=== PATIENT | female | born 1940 | race Caucasian/White ===

== ENCOUNTER 2017-10-24 13:00 | Outpatient (RCR) | payer MEDICARE, OTHER, SELFPAY ==
--- NOTE | 2017-09-30 10:58 | HMH.PTOPEV ---
PT Outpatient Evaluation Rehab PT Outpatient Evaluation Start: 09/30/17 10:47 Freq: Status: Active Protocol: Document 09/30/17 10:47 LEO (Rec: 09/30/17 10:57 LEO [id number]) Electronically Signed By Brennan Nicole, PT 09/30/17 10:47 Outpatient Therapy Subjective History Subjective History Pt reports falling on 08/26/17 while trying to transferred into vehicle when it started to move. Pt reports falling very hard with impact to the back of the head, elbow, face, and heel. Pt reports sustaining concussion and brain bleed in the frontal lobe. Pt reports 'unsteady' gait since injury, but no other falls reported to date. Chief Complaint Decreased Coordination Symptom Type Other Symptoms Relieved By Activity Symptoms Aggravated By Walking Prior Functional Limitations None Current Functional Limitations Standing Recreation Activity Stairs Balance Hip/Knee Eval MMT bilateral Hip Flexion Strength Grade 4 Good Hip Abduction Strength Grade 4- Good- Hip Adduction Strength Grade 4- Good- Hip Extension Strength Grade 4- Good- Knee Extension Strength Grade 4 Good Knee Flexion Strength Grade 4 Good Balance Eval Chief Complaint vertigo No Did you feel dizzy, unsteady or faint? Yes Activity at onset 08/26/17 Gait/Posture Asssessment General Gait Observation Wide Based Gait Shuffling Step Assistive Devices None / NA Level of Transfer Assist Standby Assistance Hip Observation in Gait Swing Circumducted Timed Up and Go Test 1. Is the Timed Up and Go test result > yes or = to 12 seconds? Outpatient Therapy Assessment Impairments Problems/Impairmments Impaired Strength Impaired Gait Pattern Impaired Walking Impaired Standing Impaired Stair Climbing Impaired Stepping on Uneven Surface Impaired TUG Time Subjective C/O Pain Impaired Self Care/Self Management Prognosis Rehab Potential Good Clinical Impression Consistent with Diagnosis
== END 2017-10-24 13:01 | disposition home or self-care (01) ==
LOC: PT 13:00
PROVIDERS: Family Provider Family Medicine; PCP Family Medicine; Visit Provider Family Medicine
DX: R26.89 Other abnormalities of gait and mobility (principal); E53.8 Deficiency of other specified B group vitamins
CPT/HCPCS: 97110; 97112; 97163

== ENCOUNTER → 2018-03-21 12:27 | Outpatient (CLI) | payer MEDICARE, SELFPAY ==
--- NOTE | 2018-03-21 12:32 | XR_ITS ---
XR hip LT 2-3V w/pelvis HISTORY: ITS.REASON: LT HIP PAIN ORDERING PHYSICIAN: Constance Ness MD PATIENT AGE: 77 years COMPARISON: None FINDINGS: There are moderate osteoarthritic changes of the left hip with decrease in joint space superiorly and with osteosclerosis of the acetabular roof with some small subarticular cysts of the acetabulum. No fracture or dislocation. No lytic or blastic change. There is a pessary device present. IMPRESSION: Moderate osteoarthritis of the left hip
== END ==
PROVIDERS: PCP Family Medicine; Visit Provider Family Medicine
DX: M25.552 Pain in left hip (principal)
CPT/HCPCS: 73502

== ENCOUNTER → 2018-07-05 08:57 | Outpatient (CLI) | payer MEDICARE, SELFPAY ==
--- NOTE | 2018-07-05 09:17 | XR_ITS ---
XR DEXA axial skeleton HISTORY: ITS.REASON: POST MENOPAUSAL ORDERING PHYSICIAN: Constance Ness MD PATIENT AGE: 77 years COMPARISON: none FINDINGS: The BMD measured at the Left Total femoral neck is 0.667 g/cm squared with a T score of -2.7. This is considered Osteoporotic according to the World Health Organization criteria. Fracture risk is High. Treatment is advised. L1 L4 density has a T score of -0.5 IMPRESSION: Osteoporosis with high fracture risk. Treatment suggested. Recommend follow-up exam June 2019
== END ==
PROVIDERS: PCP Family Medicine; Visit Provider Family Medicine
DX: Z78.0 Asymptomatic menopausal state (principal)
CPT/HCPCS: 77080

== ENCOUNTER → 2018-08-24 13:50 | Outpatient (CLI) | payer MEDICARE, SELFPAY ==
[2018-08-24 14:15] VITALS: BP 130/70; PULSE 71; RESP 18; O2SAT 98
== END ==
PROVIDERS: Visit Provider Family Medicine
DX: E83.51 Hypocalcemia (principal); Z92.89 Personal history of other medical treatment; M81.0 Age-related osteoporosis without current pathological fracture
CPT/HCPCS: 96372; J0897

== ENCOUNTER 2018-08-31 11:00 | Outpatient (RCR) | payer MEDICARE, SELFPAY | END 2018-08-31 11:05 | disposition home or self-care (01) | LOC: PT 11:00 | PROVIDERS: Visit Provider Orthopaedic Surgery | DX: M25.552 Pain in left hip (principal); Z96.642 Presence of left artificial hip joint | CPT/HCPCS: 97010; 97014; 97110; 97116; 97163; G0283 ==

== ENCOUNTER 2019-02-28 10:09 | Outpatient (CLI) | payer MEDICARE, SELFPAY ==
[2019-02-28 10:30] VITALS: BP 154/71; PULSE 61; RESP 18; TEMP 36.3; O2SAT 98
== END 2019-02-28 10:45 | disposition home or self-care (01) ==
LOC: INF 10:09
PROVIDERS: Visit Provider Family Medicine
DX: M81.0 Age-related osteoporosis without current pathological fracture (principal); E83.51 Hypocalcemia
CPT/HCPCS: 96372; J0897

== ENCOUNTER 2019-09-07 13:23 | Observation (INO) | payer MEDICARE, SELFPAY ==
--- NOTE | 2019-09-07 13:22 | ECG_ITS ---
APPROVED REPORT Exam: Resting ECG HR:61 bpm ECG Measurements Heart Rate 61 AXES DC 164 P 39 QRSd 86 QRS 48 QT 412 T 32 QTc 414 <Conclusion> Normal sinus rhythm Incomplete RBBB Otherwise a normal ECG Electronically signed by : Caden Mccormack, 09/09/2019 17:27:15
[2019-09-07 13:23] VITALS: BP 147/87; PULSE 65; RESP 18; O2SAT 98; BMI 27.3
--- NOTE | 2019-09-07 13:30 | XR_ITS ---
PROCEDURE: XR CHEST PORTABLE CLINICAL HISTORY: chest pain COMPARISON: CXR1 CHEST-PORTABLE from 12/29/2012 RIBUL3 [id number] VIEWS from 11/26/2015 ABDPELW/O CT ABD PELVIS W/O CONTRAST from 02/26/2016 CXR1VP XR chest portable from 08/26/2017 FINDINGS: Cardiomegaly without failure. There is increased density in the right lung base. Some of which may be due to pericardial fat pad however this is more prominent compared to most previous exams. Superimposed pneumonia is considered. The remaining lungs are clear. No acute bony findings. IMPRESSION: Cardiomegaly with right basilar infiltrate Dictated by: Hao Merritt MD 09/07/2019 14:52 Electronically signed by Hao Merritt MD in [place] 09/07/2019 14:52
[2019-09-07 13:38] LABS: Chloride 103 mmol/L (98-107); Potassium 4.1 mmoL/L (3.5-5.1); Sodium 137 mmol/L (136-145)
[2019-09-07 13:41] LABS: Blood Urea Nitrogen 13 mg/dl (7-17); Creatinine Clearance Estimated 46 mL/min (50-200); Estimated Glomerular Filt Rate 69 ml/min (>60); GFR (African American) 84 ML/MIN (>60)
[2019-09-07 13:42] LABS: Anion Gap 12.1 mEq/L (5-15); Calcium 10.4 mg/dl (8.4-10.2); Carbon Dioxide 26 mmol/L (22.0-30.0); Glucose 103 mg/dl (74-100)
[2019-09-07 13:51] LABS: Basophils # 0.1 K/mm3 (0-0.2); Basophils % 1.2 % (0.1-2.0); Eosinophils # 0.1 K/mm3 (0.0-0.4); Eosinophils % 1.5 % (0.1-12.0); Hematocrit 41.7 % (37.0-47.0); Hemoglobin 13.6 g/dL (12.2-16.2); Lymphocytes # 2.3 K/mm3 (0.7-4.5); Lymphocytes % 36.3 % (10-50); Mean Corpuscular HGB Conc 32.6 g/dL (31.8-35.4); Mean Corpuscular Volume 82.9 fl (81-99); Mean Platelet Volume 7.9 fl (7.4-10.4); Monocytes # 0.4 K/mm3 (0.1-1.0); Monocytes % 6.8 % (1.7-9.3); Neutrophils # 3.5 K/mm3 (1.8-7.8); Neutrophils % 54.3 % (37.0-80.0); Platelet Count 290 K/mm3 (142-424); Red Blood Count 5.03 M/mm3 (4.20-5.40); Red Cell Distribution Width 14.5 % (11.5-17.5); White Blood Count 6.5 K/mm3 (4.8-10.8)
[2019-09-07 13:54] LABS: Troponin I < 0.01 ng/ml (0.00-0.034)
--- NOTE | 2019-09-07 14:07 | HMH.EDCP ---
ED Disposition Clinical Impression: Chest pain, Stable angina, Hypertension, Coronary artery disease, Hyperlipidemia Disposition: Admitted as Observation Condition on Discharge: Good - Critical Care Critical Care Time: No Attestation: On 09/07/19, the high probability of a clinically significant, sudden or life threatening deterioration of the following system(s) required my full and direct attention, intervention and personal management. The time I documented below is in addition to time spent performing reported procedures but includes the following listed in this critical care notation. Medical Decision Making - Medical Records Medical records reviewed: Yes: I reviewed the patient's medical records. - Be Inquiry Pt receiving controlled substance: No Vital Signs: 09/07/19 13:23 Pulse Rate [Radial] 65 Respiratory Rate 18 Blood Pressure [Right Arm] 147/87 H Blood Pressure Mean [Right Arm] 107 Blood Pressure Source [Right Arm] Automatic Cuff Blood Pressure Position [Right Arm] Supine 02 Sat by Pulse Oximetry 98 Oxygen Delivery Method Room Air - Lab Data Lab results reviewed: Yes: I reviewed the patient's lab results. Lab Results 09/07/19 13:27: WBC 6.5, RBC 5.03, Hgb 13.6, Hct 41.7, MCV 82.9, MCH 27.0, MCHC 32.6, RDW 14.5, Plt Count 290, MPV 7.9, Neut % (Auto) 54.3, Lymph % (Auto) 36.3, [place] % (Auto) 6.8, Eos % (Auto) 1.5, Baso % (Auto) 1.2, Neut # (Auto) 3.5, Lymph # (Auto) 2.3, [place] # (Auto) 0.4, Eos # (Auto) 0.1, Baso # (Auto) 0.1 09/07/19 13:27: Sodium 137, Potassium 4.1, Chloride 103, Carbon Dioxide 26, Anion Gap 12.1, BUN 13, Creatinine 0.80, Estimated Creat Clear 46, Estimated GFR 69, Est GFR ( Amer) 84, Glucose 103 H, Calcium 10.4 H, Troponin I < 0.01 Result diagrams: 09/07/19 13:27 09/07/19 13:27 Orders (Tests/Meds): ED MEDICATIONS Generic Name Dose Route Start Last Admin Trade Name Freq PRN Reason Stop Dose Admin Sodium Chloride 1,000 mls @ 999 mls/hr 09/07/19 13:45 09/07/19 14:01 Sod Chlor 0.9% 1000ml Bag IV 09/07/19 14:45 999 mls/hr .Q1H1M NICO Administration Discontinued Medications Generic Name Dose Route Start Last Admin Trade Name Angela PRN Reason Stop Dose Admin Aspirin 324 mg 09/07/19 13:33 09/07/19 14:01 Aspirin 81mg Chewable Tablet PO 09/07/19 13:34 324 mg ONCE ONE Administration Nitroglycerin 1 gm 09/07/19 13:43 09/07/19 14:01 Nitroglycerin 1 Inch Oint Udp TD 09/07/19 13:44 1 gm ONCE ONE Administration ORDERS Category Date Time Status Chest XR -- portable [XR chest portable] Stat Exams 09/07/19 13:30 Taken Troponin I Q3H Lab 09/07/19 16:45 Ordered Troponin I Q3H Lab 09/07/19 19:45 Ordered - Radiology Data #1 Image(s): Chest Image Reviewed: Yes I reviewed the patient's radiology image w/the ED provider Preliminary Findings: Normal/NAD - ECG Data Tracing #1 I reviewed this ECG and interpreted as documented below: Normal Sinus Rhythm: Yes - HERMANN Score for Non-Stemi Age of Patient: 70-79 years old Heart Rate: 50-69 bpm Systolic Blood Pressure: 140-159 mmHg Serum Creatinine: <0.40 mg/dl CHF [place] Class: I-No CHF Other Risk Factors: None Non-Stemi Risk Score: 103 Risk Stratification: 1-108 = Low Risk Medical Decision Narrative: I did coordinate care with this patient I did speak to cardiology and they came over to evaluate the patient I also spoke to the patient's primary care provider Dr. Marcum and he agreed to admit her for rule out. Chest Pain HPI - General Chief Complaint: Chest Pain Stated Complaint: CHEST PAIN Time Seen by Provider: 09/07/19 14:20 Mode of Arrival: Wheelchair Limitations: No Limitations Description of Symptoms (Recalled from ER Triage Doc. by RN): Complaint of mid chest pain that started all of the sudden approx 20-30 minutes ago. - History of Present Illness HPI narrative: 78-year-old female presents the ED with acute onset of substernal chest pain. She stat
--- NOTE | 2019-09-07 14:27 | HMH.CNCARD ---
History of Present Illness Consult date: 09/07/19 Requesting physician: Bladimir Marcum Consult reason: chest pain Chief complaint: chest pain Additional Medical History:: 1. Hypertension 2. Hyperlipidemia 3. Coronary artery disease A. History of coronary artery stenting approximately 5 years ago may be more, presumed [place], Dr. Michael (?) 4. History of reflux esophagitis, on PPI therapy chronically History of present illness: 78-year-old white female with history of hypertension, hyperlipidemia and coronary artery stenting in the past presented to the emergency department today for sudden onset of substernal sharp discomfort without radiation, associated shortness of breath, nausea, vomiting or diaphoresis. Patient's EKG in the ER is sinus rhythm with no acute ST segment changes. She was given a sublingual nitroglycerin with gradual relief of symptoms. She currently has nitroglycerin paste on and is pain-free. Initial troponin is normal. Chest x-ray reportedly unremarkable. Cardiology consulted for evaluation and recommendations. Patient has already been admitted for overnight observation. Discussion was undertaken regarding her prior coronary stenting and surrounding symptoms but patient is unable to provide any details. 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), Cardiac Catheterization, Coronary Stent, Plastic Surgery (bita breast reconstruction), Other Amputation: No Fractures: No - *Social History Educational Level: Completed High School Smoking Status: Never smoker Alcohol Intake: never *Occupational Status:: other Housing: house Household Members: spouse *Travel in the last 8 weeks: None Family Hx:: No significant family history Meds Home Medications Medication Instructions Recorded Confirmed Type Aspirin [Aspir 81] 81 mg PO DAILY 08/27/17 02/28/19 History Atorvastatin Calcium [Atorvastatin 40 mg PO PM 08/27/17 02/28/19 History 40mg Tab] Dexlansoprazole [Dexilant] 60 mg PO DAILY 08/27/17 02/28/19 History Losartan Potassium 25 mg PO DAILY 08/27/17 02/28/19 History bisoproloL fumarate [Zebeta 5mg 5 mg PO DAILY 08/27/17 02/28/19 History tablet] Allergies Allergy/AdvReac Type Severity Reaction Status Date / Time oxycodone [OXYCODONE] Allergy Unknown I-RASH Verified 08/27/17 16:41 Review of Systems - Review of Systems Review of systems:: pertinent systems reviewed and negative unless documented below - *Cardiovascular Reports chest pain, Denies shortness of breath - *Respiratory Denies cough, Denies shortness of breath - *Gastrointestinal Denies loose stools, Denies nausea, Denies vomiting - *Genitourinary Denies blood in urine - *Musculoskeletal Denies joint pain, Denies back pain - *Neurologic Denies dizziness, Denies fainting, Denies tingling Exam Vital signs and Labs for Last 24 Hours: Pulse Resp BP Pulse Ox 65 18 147/87 H 98 09/07/19 13:23 09/07/19 13:23 09/07/19 13:23 09/07/19 13:23 Laboratory Results - last 24 hr 09/07/19 13:27: WBC 6.5, RBC 5.03, Hgb 13.6, Hct 41.7, MCV 82.9, MCH 27.0, MCHC 32.6, RDW 14.5, Plt Count 290, MPV 7.9, Neut % (Auto) 54.3, Lymph % (Auto) 36.3, [place] % (Auto) 6.8, Eos % (Auto) 1.5, Baso % (Auto) 1.2, Neut # (Auto) 3.5, Lymph # (Auto) 2.3, [place] # (Auto) 0.4, Eos # (Auto) 0.1, Baso # (Auto) 0.1 09/07/19 13:27: Sodium 137, Potassium 4.1, Chloride 103, Carbon Dioxide 26, Anion Gap 12.1, BUN 13, Creatinine 0.80, Estimated Creat Clear 46, Estimated GFR 69, Est GFR ( Amer) 84, Glucose 103 H, Calcium 10.4 H, Troponin I <
[2019-09-07 14:47] VITALS: BMI 34.1
--- NOTE | 2019-09-07 15:08 | CA_ITS ---
APPROVED REPORT EXAM: Comprehensive 2D, Doppler, and color-flow Echocardiogram Courtesy Car Driver: Shameka Burrell RT(R) Ht: 5 ft 2 in Wt: 187lbs BSA: 1.86 BP: 147/87 mmHg Indications: CP, HTN, hyperlipidemia, stents, CAD, hx of RI, bilateral mastectomies with reconstructive surgery M-Mode Dimensions RVDd 2.80 cm (0.9-2.6) LVDd 4.09 cm (3.5-5.7) LVDs 2.65 cm (3.5-5.7) IVSd 1.04 cm (0.6-1.1) PWd 0.93 cm (0.6-1.1) EF (Teich) 65.00% FS 35.20% EDV (Teich) 73.80 mL ESV (Teich) 25.80 mL LV Diastology E/A Ratio 0.82 Mitral Valve MV A Velocity 109.00 (40-130 cm/s) Left Ventricle Left atrium is mildly enlarged, left ventricle is normal size, mild concentric left ventricular hypertrophy, visually estimated ejection fraction 50%, there is moderate hypokinesis involving the basal septum and inferior basal wall. Grade 1 diastolic dysfunction seen without tissue Doppler evidence of raise left atrial pressure. Right Ventricle Right atrium right ventricular normal size and contractility. Aortic Valve Aortic valve is thickened and calcified, leaflet continue to display good mobility, there is no aortic stenosis, there is mild aortic insufficiency. Mitral Valve Mitral valve is grossly normal, there is mild mitral regurgitation. Tricuspid Valve Tricuspid valve is grossly normal, there is mild tricuspid regurgitation, tricuspid regurgitation jet velocity is inadequate for calculation of the right ventricular systolic pressure. Pulmonic Valve Pulmonic valve is poorly visualized. Great Vessels Aortic root is normal size. Pericardium No significant pericardial effusion noted. Conclusion 1. Mildly enlarged left atrium, normal left ventricular size, mild concentric left ventricular hypertrophy, visually estimated ejection fraction 50% with segmental wall motion abnormality described above, grade 1 diastolic dysfunction seen without tissue Doppler evidence of raise left atrial pressure. 2. Thickened and calcified aortic valve without aortic stenosis, there is mild aortic insufficiency. 3. Mild mitral and tricuspid regurgitation. 4. No significant pericardial effusion noted. Electronically signed by : Govind Gilman, 09/09/2019 19:53:44
[2019-09-07 15:14] VITALS: BP 140/85; PULSE 85; RESP 20; TEMP 36.8; O2SAT 98
[2019-09-07 15:46] VITALS: BP 145/79; PULSE 62; RESP 16; TEMP 36.9; O2SAT 96
--- NOTE | 2019-09-07 16:44 | HMH.HP ---
*Admission Date: 09/07/19 *Chief complaint: Chest pain *History of present illness: 8-year-old white female with history of hypertension, hyperlipidemia and coronary artery stenting of the mid LAD in 2012 after non-STEMI presented to the emergency department today for sudden onset of substernal sharp discomfort without radiation, associated shortness of breath, nausea, vomiting or diaphoresis. Patient's EKG in the ER is sinus rhythm with no acute ST segment changes. She was given a sublingual nitroglycerin with gradual relief of symptoms. She currently has nitroglycerin paste on and is pain-free. Initial troponin is normal. Chest x-ray reportedly unremarkable. Cardiology consulted for evaluation and recommendations. Patient has already been admitted for overnight observation. [facility] History I have reviewed the patient's past medical history: Yes Medical History: Reports:: Coronary Artery Disease, Hyperlipidemia, Hypertension, Myocardial Infarction (2012 with subsequent stenting of mid LAD) Denies:: Cancer, Diabetes Mellitus Type 1, Diabetes Mellitus Type 2, MRSA *Have you ever received a pneumonia vaccine?: Yes *Have you received a flu vaccine this season?: Yes Other Medical History: Reports: Cataracts Laterality Cases: Bilateral: Mastectomy Other Surgeries: Yes: Cancer Surgery (bita mast w/abd flap reconstruction), Cardiac Catheterization, Coronary Stent, Plastic Surgery (bita breast reconstruction), Other Amputation: No Fractures: No - *Social History Educational Level: Completed High School Smoking Status: Never smoker Alcohol Intake: never *Occupational Status:: other Housing: house Household Members: spouse *Travel in the last 8 weeks: None Family Hx:: No significant family history Review of Systems - Review of Systems Review of systems:: pertinent systems reviewed and negative unless documented below - Constitutional Denies body ache(s), Denies chills, Denies fever(s), Denies lack of energy, Denies malaise - ENT Denies abnormal hearing - *Cardiovascular Denies chest pain, Denies chest pain at rest, Denies chest pain with activity - *Respiratory Denies change in phlegm color, Denies chest congestion, Denies cough, Denies shortness of breath, Denies shortness of breath with activity, Denies coughing up blood - *Gastrointestinal Denies belching, Denies bloating, Denies change in bowel habits, Denies change in stools - *Musculoskeletal Denies abnormal walking - *Neurologic Denies dizziness, Denies fainting, Denies tingling Meds Home Medications Medication Instructions Recorded Confirmed Type Aspirin [Aspir 81] 81 mg PO DAILY 08/27/17 02/28/19 History Atorvastatin Calcium [Atorvastatin 40 mg PO PM 08/27/17 02/28/19 History 40mg Tab] Dexlansoprazole [Dexilant] 60 mg PO DAILY 08/27/17 02/28/19 History Losartan Potassium 25 mg PO DAILY 08/27/17 02/28/19 History bisoproloL fumarate [Zebeta 5mg 5 mg PO DAILY 08/27/17 02/28/19 History tablet] Allergies Allergy/AdvReac Type Severity Reaction Status Date / Time oxycodone [OXYCODONE] Allergy Unknown I-RASH Verified 08/27/17 16:41 Exam Vital signs and Labs for Last 24 Hours: Temp Pulse Resp BP Pulse Ox 98.4 F 62 16 145/79 H 96 09/07/19 15:46 09/07/19 15:46 09/07/19 15:46 09/07/19 15:46 09/07/19 15:46 Laboratory Results - last 24 hr 09/07/19 13:27: WBC 6.5, RBC 5.03, Hgb 13.6, Hct 41.7, MCV 82.9, MCH 27.0, MCHC 32.6, RDW 14.5, Plt Count 290, MPV 7.9, Neut % (Auto) 54.3, Lymph % (Auto) 36.3, [place] % (Auto) 6.8, Eos % (Auto) 1.5, Baso % (Auto) 1.2, Neut # (Auto) 3.5, Lymph # (Auto) 2.3, [place] # (Auto) 0.4, Eos # (Auto) 0.1, Baso # (Auto) 0.1 09/07/19 13:27: Sodium 137, Potassium 4.1, Chloride 103, Carbon Dioxide 26, Anion Gap 12.1, BUN 13, Creatinine 0.80, Estimated Creat Clear 46, Estimated GFR 69, Est GFR ( Amer) 84, Glucose 103 H, Calcium 10.4 H, Troponin I < 0.01 I & O for Last 24 hours: Intake & Output 09/05/19 09/06/19
[2019-09-07 17:17] LABS: Troponin I < 0.01 ng/ml (0.00-0.034)
--- NOTE | 2019-09-07 19:51 | PC.NURSE ---
PATIENT ARRIVED ON FLOOR VIA WHEELCHAIR. SPOUSE PERMITTED ON FLOOR TO HELP WITH ADMINISTRATION DUE TO PATIENT TBI. PATIENT A&O X3. NO OTHER CONCERNS AT THIS TIME.
[2019-09-07 19:53] VITALS: BP 125/76; PULSE 69; RESP 18; TEMP 36.6; O2SAT 94
[2019-09-07 20:00] VITALS: PULSE 70
[2019-09-07 20:20] LABS: Troponin I < 0.01 ng/ml (0.00-0.034)
[2019-09-08] VITALS: BP 135/74; PULSE 60; PULSE 65; RESP 20; TEMP 36.8; O2SAT 97
[2019-09-08 03:56] VITALS: BP 156/87; PULSE 65; RESP 20; TEMP 36.8; O2SAT 94
[2019-09-08 04:00] VITALS: PULSE 70
--- NOTE | 2019-09-08 04:42 | PC.NURSE ---
PT HAS SLEPT. TURNING SELF. VOIDING WITHOUT DIFFICULTY. NO COMPLAINTS OF CP. NSR ON TELEMETRY.
[2019-09-08 05:32] VITALS: BMI 34.1
[2019-09-08 07:18] LABS: Chloride 108 mmol/L (98-107); Potassium 3.9 mmoL/L (3.5-5.1); Sodium 138 mmol/L (136-145)
[2019-09-08 07:20] LABS: Alanine Aminotransferase 12 U/L (12-78); Aspartate Amino Transferase 20 U/L (14-36); Blood Urea Nitrogen 11 mg/dl (7-17); Creatinine Clearance Estimated 61 mL/min (50-200); Estimated Glomerular Filt Rate 81 ml/min (>60); GFR (African American) 98 ML/MIN (>60)
[2019-09-08 07:21] LABS: Albumin Level 3.3 g/dl (3.5-5.0); Albumin/Globulin Ratio 1.4 (1.1-1.8); Alkaline Phosphatase 58 U/L (38-126); Anion Gap 9.9 mEq/L (5-15); Bilirubin,Total 0.5 mg/dl (0.2-1.3); Calcium 9.2 mg/dl (8.4-10.2); Carbon Dioxide 24 mmol/L (22.0-30.0); Globulin 2.4 g/dL (1.3-3.2); Glucose 86 mg/dl (74-100); Total Protein,Serum 5.7 g/dl (6.3-8.2)
[2019-09-08 07:26] LABS: Basophils % 0.5 % (0.1-2.0); Eosinophils # 0.1 K/mm3 (0.0-0.4); Eosinophils % 0.7 % (0.1-12.0); Hematocrit 36.6 % (37.0-47.0); Lymphocytes # 1.5 K/mm3 (0.7-4.5); Lymphocytes % 22.6 % (10-50); Mean Corpuscular HGB Conc 31.6 g/dL (31.8-35.4); Mean Corpuscular Hemoglobin 26.3 pg (27.0-31.2); Mean Corpuscular Volume 83.3 fl (81-99); Mean Platelet Volume 7.1 fl (7.4-10.4); Monocytes # 0.5 K/mm3 (0.1-1.0); Monocytes % 6.6 % (1.7-9.3); Neutrophils # 4.7 K/mm3 (1.8-7.8); Neutrophils % 69.6 % (37.0-80.0); Platelet Count 236 K/mm3 (142-424); Red Blood Count 4.39 M/mm3 (4.20-5.40); Red Cell Distribution Width 14.6 % (11.5-17.5); White Blood Count 6.7 K/mm3 (4.8-10.8)
--- NOTE | 2019-09-08 07:28 | HMH.DCSUM ---
General - General Admission date:: 09/07/19 Discharge date: 09/08/19 HPI HPI: 8-year-old white female with history of hypertension, hyperlipidemia and coronary artery stenting of the mid LAD in 2012 after non-STEMI presented to the emergency department today for sudden onset of substernal sharp discomfort without radiation, associated shortness of breath, nausea, vomiting or diaphoresis. Patient's EKG in the ER is sinus rhythm with no acute ST segment changes. She was given a sublingual nitroglycerin with gradual relief of symptoms. She currently has nitroglycerin paste on and is pain-free. Initial troponin is normal. Chest x-ray reportedly unremarkable. Cardiology consulted for evaluation and recommendations. Patient has already been admitted for overnight observation. Hospital Course Hospital Course: Patient was admitted and ruled out for ND with serial troponins. She had no recurrence of chest pain. Patient was started on isosorbide mononitrate 30 mg daily. After ruling out for ND patient was discharged home the following morning on September 07. Outpatient stress testing will be arranged. Patient will follow-up in the office after stress testing. Patient was discharged home in stable condition Objective Vital signs: Temp Pulse Resp BP Pulse Ox 98.2 F 70 20 156/87 H 94 L 09/08/19 03:56 09/08/19 04:00 09/08/19 03:56 09/08/19 03:56 09/08/19 03:56 no acute distress - *Routine Respiratory Exam Present: CTA bilaterally - *Routine Cardiovascular Exam Present: RRR, Normal S1, Normal S2 - *Routine Abdominal Exam Present: soft, normoactive bowel sounds. Absent: tenderness Results Labs on day of discharge: Labs from last 24 hours 09/08/19 09/08/19 09/07/19 06:31 06:31 19:48 WBC 6.7 RBC 4.39 Hgb Hct 36.6 L MCV 83.3 MCH 26.3 L MCHC 31.6 L RDW 14.6 Plt Count 236 MPV 7.1 L Neut % (Auto) 69.6 Lymph % (Auto) 22.6 [place] % (Auto) 6.6 Eos % (Auto) 0.7 Baso % (Auto) 0.5 Neut # (Auto) 4.7 Lymph # (Auto) 1.5 [place] # (Auto) 0.5 Eos # (Auto) 0.1 Baso # (Auto) 0.0 Sodium 138 Potassium 3.9 Chloride 108 H Carbon Dioxide 24 Anion Gap 9.9 BUN 11 Creatinine 0.70 Estimated Creat Clear 61 Estimated GFR 81 Est GFR ( Amer) 98 Glucose 86 Calcium 9.2 D Total Bilirubin 0.5 AST 20 ALT 12 Alkaline Phosphatase 58 Troponin I < 0.01 Total Protein 5.7 L Albumin 3.3 L Globulin 2.4 Albumin/Globulin Ratio 1.4 09/07/19 09/07/19 09/07/19 16:46 13:27 13:27 WBC 6.5 RBC 5.03 Hgb 13.6 Hct 41.7 MCV 82.9 MCH 27.0 MCHC 32.6 RDW 14.5 Plt Count 290 MPV 7.9 Neut % (Auto) 54.3 Lymph % (Auto) 36.3 [place] % (Auto) 6.8 Eos % (Auto) 1.5 Baso % (Auto) 1.2 Neut # (Auto) 3.5 Lymph # (Auto) 2.3 [place] # (Auto) 0.4 Eos # (Auto) 0.1 Baso # (Auto) 0.1 Sodium 137 Potassium 4.1 Chloride 103 Carbon Dioxide 26 Anion Gap 12.1 BUN 13 Creatinine 0.80 Estimated Creat Clear 46 Estimated GFR 69 Est GFR ( Amer) 84 Glucose 103 H Calcium 10.4 H Total Bilirubin AST ALT Alkaline Phosphatase Troponin I < 0.01 < 0.01 Total Protein Albumin Globulin Albumin/Globulin Ratio DS: Diagnosis - Discharge Diagnosis (1) Chest pain Status: Acute (2) History of coronary artery stent placement Status: Acute (3) Hyperlipidemia Status: Acute (4) Reflux esophagitis Status: Acute Discharge Plan - Patient Discharge Instructions ACTIVITY: Continue current activity DIET: continue same diet Patient Instructions: DI for Chronic Pain -- Adult - Follow up Plan Follow up with: Bladimir Marcum MD [Primary Care Provider] - 09/17/19 Disposition: Home, Self-Detention Medications: Home Medications Medication Instructions Recorded Conf
[2019-09-08 07:40] VITALS: BP 148/87; PULSE 69; RESP 20; TEMP 36.6; O2SAT 93
[2019-09-08 07:51] LABS: Hemoglobin 11.6 g/dL (12.2-16.2)
--- NOTE | 2019-09-08 08:07 | PC.NURSE ---
Pt d/cd, education given to and pt. Pt awaiting pt to be d/cd in lobby and adamant to leave. Walked pt to car with . Pt did removed her own IV prior to d/c.
== END 2019-09-08 07:45 | disposition home or self-care (01) ==
LOC: ER 14:14 → 2ND 14:23
PROVIDERS: Admitting Provider Family Medicine; Emergency Provider Family Medicine; PCP Family Medicine; Visit Provider Family Medicine
DX: R07.9 Chest pain, unspecified (principal); I10 Essential (primary) hypertension; I25.10 Atherosclerotic heart disease of native coronary artery without angina pectoris; I25.2 Old myocardial infarction; Z95.5 Presence of coronary angioplasty implant and graft; E78.5 Hyperlipidemia, unspecified; K21.0 Gastro-esophageal reflux disease with esophagitis; Z88.8 Allergy status to other drugs, medicaments and biological substances; Z79.899 Other long term (current) drug therapy; Z85.3 Personal history of malignant neoplasm of breast; Z90.13 Acquired absence of bilateral breasts and nipples
CPT/HCPCS: 36415; 71045; 80048; 80053; 84484; 85025; 93005; 93306; 96365; 99284; G0378; J2405

== ENCOUNTER → 2019-09-13 06:40 | Outpatient (CLI) | payer MEDICARE, SELFPAY ==
--- NOTE | 2019-09-13 | CA_ITS ---
APPROVED REPORT Exam: Pharmacologic Technologist: Radha Barrera, Ht: 5 ft 1 in Wt: 175 lbs BSA: 1.78 m2 HR: 59 bpm BP: 135/78 mmHg Rhythm: NSR Medical History Medical History: Diabetes, Hyperlipidemia, HTN Medications: Isosorbide,,,,, Asa,,,,, Losartan,,,,, Atorvastatin,,,,, BisOPROLOL,,,,, Dexilant,,,,, Cardiac Risk Factors: HTN, Hyperlipidemia, DM Stress Test Details Test: [place] HR Resting HR: 63 bpm Max Heart Rate (APMHR): 141 bpm Max HR Achieved: 84 bpm Target HR (85% APMHR): 119 bpm % of APMHR: 59 Recovery HR: 77 bpm BP Resting BP: 135.0/78.0 mmHg Max BP: 158.0/73.0 mmHg Recovery BP: 159.0/74.0 mmHg ECG Resting ECG: NSR Clinical Reason for Termination: Completed Protocol Exercise duration: 04:11 min Highest Stage Achieved: Stress ECG Conclusion DURING INFUSION PATIENT HAD NO CHEST PAIN. NO ARRHYTHMIAS/ECTOPY. <1.5MM ST SEGMENT CHANGES. NON-DIAGNOSTIC STRESS TEST. Test Summary REST . . . . . . . Sitting REST 12:01 . . 63 . 135/ 78 . . Stage 1 . . . . . . . Cardiolite injected Stage 1 01:00 . . 72 . . . . Stage 2 01:00 . . 82 . 125/ 65 . . Stage 3 01:00 . . 82 . 155/ 73 . . Stage 4 01:00 . . 79 . 158/ 73 . . Stage 4 01:11 . . 78 . 158/ 73 . Stop exercise at 04:11 RECOVERY 01:00 . . 77 . . . . RECOVERY 02:00 . . 76 . . . . RECOVERY 03:00 . . 75 . 156/ 73 . . RECOVERY 04:00 . . 76 . 156/ 73 . . RECOVERY 04:36 . . 78 . 150/ 73 . . Electronically signed by : Govind Gilman, 09/13/2019 11:19:04
--- NOTE | 2019-09-13 06:46 | NM_ITS ---
APPROVED REPORT Exam: Nuclear Stress Test Indication: CAD, UT, HTN, D.M., HYPERLIPIDEMIA, C.P. Patient Location: Outpatient Stress Tech: Nyla Barrera HI Tech:JOHNATHON Hein RT (R)(N)(M) Ht: 5 ft 1 in Wt: 175 lbs Bra Size: IMPLANTS HR: 59 bpm BP: 135/78 mmHg BSA: 1.78 m2 BMI: 33.0 History: CAD, UT, HTN, D.M., HYPERLIPIDEMIA, C.P. Procedure: Patient received a 0.4 mg of intravenous Lexiscan, resting heart rate 59 bpm, resting blood pressure 135/78 mmHg, with Lexiscan maximum heart rate achived was 83 bpm which is Less than 85 % of the maximum predicted heart rate and blood pressure was 185/65 mmHg. Electrocardiogram Resting electrocardiogram showed sinus rhythm, with Lexiscan less than 1.[address] segment depression noted from the baseline. The EKG portion of the Lexiscan Myoview is nondiagnostic. Cardiac Stress and Resting SPECT Images: Cardiac Stress and Resting SPECT images were obtained using technetium 99m Myoview 31.7 mCi stress and 10.34 mCi at rest. Gated SPECT for analysis of segmental wall motion and calculation of the ejection fraction also done. Cardiac stress and resting SPECT images show decreased tracer activity in the inferior basal wall which improves on the resting images suggestive of reversible ischemia. Computer derived ejection fraction is over 65% with mild inferior basal wall hypokinesis, right ventricle is normal size and contractility. Conclusion: 1. The EKG portion of the Lexiscan Myoview is nondiagnostic. 2. Scintigraphic evidence of small area reversible ischemia involving the inferior basal wall. Computer derived ejection fraction is over 65% with segmental wall motion abnormality described above, right ventricle is normal size and contractility. 3. Abnormal Lexiscan Myoview study. Electronically signed by : Govind Gilman, 09/13/2019 10:38:55
== END ==
PROVIDERS: PCP Family Medicine; Visit Provider Family Medicine
DX: R07.9 Chest pain, unspecified (principal)
CPT/HCPCS: 78452; 93017; A9502; J2785

== ENCOUNTER 2019-09-21 12:55 | Outpatient (CLI) | payer MEDICARE, SELFPAY ==
[2019-09-21 13:05] VITALS: BP 126/63; PULSE 77; RESP 18; TEMP 36.6; O2SAT 97
== END 2019-09-21 13:20 | disposition home or self-care (01) ==
LOC: INF 12:56
PROVIDERS: PCP Family Medicine; Visit Provider Family Medicine
DX: E83.51 Hypocalcemia (principal); M81.0 Age-related osteoporosis without current pathological fracture
CPT/HCPCS: 96372; J0897

== ENCOUNTER 2019-12-17 09:40 | Emergency (ER) | payer MEDICARE, SELFPAY ==
[2019-12-17 09:51] VITALS: BP 172/91; PULSE 71; RESP 17; TEMP 36.9; O2SAT 96; BMI 26.5
[2019-12-17 09:59] LABS: Microscopic, Urine URINE MICROSCOPIC (MICROSCOPIC)
--- NOTE | 2019-12-17 09:59 | CT_ITS ---
PROCEDURE: CT ABDOMEN PELVIS W CON CLINICAL INDICATION: abdominal pain, midepigastric Mid epigastric pain with nausea and vomiting COMPARISON: ABDPELW/O CT ABD PELVIS W/O CONTRAST from 02/26/2016 TECHNIQUE: IV Contrast: 75ML OPTIRAY 350 Oral Contrast None Axial images obtained with sagittal and coronal reformats. All CT scans at the facility use one or more dose reduction, viz: automated exposure control, ma/kV adjustment per patient size (including targeted exams where dose is matched to indication, i.e. head), or iterative reconstruction technique. FINDINGS: LOWER THORAX: The there are atelectatic changes in the lung bases. There are bilateral breast implants. Breast implants are incompletely imaged. There may be partial deflation of the left implant Coronary artery calcifications are present. There is mild thickening of the pericardium. ABDOMEN & PELVIS: The gallbladder slightly distended with gallstones noted. There is a medium-sized hiatal hernia. The liver, spleen, adrenal glands, pancreas, and kidneys show no acute finding. There is a small right renal cortical cyst. No intestinal obstruction or free air. No evidence of appendicitis. There is colonic diverticulosis and no evidence of diverticulitis. There is a pessary device present. There has been a prior hysterectomy. 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 One of the acetabular screws extends beyond the posterior cortex of the fibula by 12 mm. IMPRESSION: 1. Mildly distended gallbladder with cholelithiasis 2. Colonic diverticulosis without diverticulitis. 3. Other nonacute findings as described above Dictated by: Hao Merritt MD 12/17/2019 11:30 Electronically signed by Hao Merritt MD in [place] 12/17/2019 11:30
--- NOTE | 2019-12-17 09:59 | ECG_ITS ---
APPROVED REPORT Exam: Resting ECG HR:63 bpm ECG Measurements Heart Rate 63 AXES ID 152 P 24 QRSd 82 QRS 4 QT 442 T 44 QTc 452 <Conclusion> Normal sinus rhythm Isolated q in iii late r wave progression Abnormal ECG Electronically signed by : Bladimir Varma, 12/19/2019 06:45:32
[2019-12-17 10:00] LABS: Appearance,Urine CLEAR (Clear); Blood, Urine Negative (Negative); Color,Urine YELLOW (Yellow); Glucose,Urine (UA) Negative (Negative); Ketones,Urine Negative (Negative); Leukocyte Esterase,Urine 3+ (Negative); Nitrate,Urine Negative (Negative); PH,Urine 7.5 (5.0-8.5); Protein,Urine TRACE (Negative); Specific Gravity, Urine 1.015 (1.005-1.030)
[2019-12-17 10:01] LABS: Bilirubin,Urine 1+ (Negative)
[2019-12-17 10:21] LABS: Bacteria,Urine 2+ /lpf; WBC,Urine 20-50 #/hpf (0-3)
[2019-12-17 10:31] LABS: Basophils # 0.1 K/mm3 (0-0.2); Basophils % 0.6 % (0.1-2.0); Eosinophils % 0.3 % (0.1-12.0); Hematocrit 41.5 % (37.0-47.0); Hemoglobin 13.6 g/dL (12.2-16.2); Lymphocytes # 1.2 K/mm3 (0.7-4.5); Lymphocytes % 15.5 % (10-50); Mean Corpuscular HGB Conc 32.7 g/dL (31.8-35.4); Mean Corpuscular Hemoglobin 26.3 pg (27.0-31.2); Mean Corpuscular Volume 80.6 fl (81-99); Monocytes # 0.5 K/mm3 (0.1-1.0); Monocytes % 6.5 % (1.7-9.3); Neutrophils # 6.2 K/mm3 (1.8-7.8); Neutrophils % 77.1 % (37.0-80.0); Platelet Count 271 K/mm3 (142-424); Red Blood Count 5.15 M/mm3 (4.20-5.40); Red Cell Distribution Width 15.8 % (11.5-17.5)
[2019-12-17 10:34] LABS: Chloride 105 mmol/L (98-107); Potassium 4.1 mmoL/L (3.5-5.1); Sodium 139 mmol/L (136-145)
[2019-12-17 10:36] LABS: Blood Urea Nitrogen 12 mg/dl (7-17); Creatinine Clearance Estimated 47 mL/min (50-200); Estimated Glomerular Filt Rate 81 ml/min (>60); GFR (African American) 97 ML/MIN (>60); Lactic Acid 1.3 mmol/L (0.7-2.1)
[2019-12-17 10:37] LABS: Alanine Aminotransferase 17 U/L (12-78); Albumin Level 3.9 g/dl (3.5-5.0); Albumin/Globulin Ratio 1.4 (1.1-1.8); Alkaline Phosphatase 76 U/L (38-126); Anion Gap 13.1 mEq/L (5-15); Aspartate Amino Transferase 31 U/L (14-36); Bilirubin,Total 0.6 mg/dl (0.2-1.3); Calcium 9.5 mg/dl (8.4-10.2); Carbon Dioxide 25 mmol/L (22.0-30.0); Globulin 2.8 g/dL (1.3-3.2); Glucose 99 mg/dl (74-100); Lipase 115 U/L (23-300); Total Protein,Serum 6.7 g/dl (6.3-8.2)
--- NOTE | 2019-12-17 10:42 | HMH.EDGENADL ---
ED Disposition Clinical Impression: Urinary tract infection Qualifiers: Urinary tract infection type: acute cystitis Hematuria presence: without hematuria Qualified Code(s): N30.00 - Acute cystitis without hematuria Disposition: Home, Self-Care Condition on Discharge: Good Instructions: DI for Urinary Tract Infection (UTI), DI for General Gallbladder Conditions Additional Instructions: You have been evaluated for nausea. Diagnosed with a urinary tract infection. Please follow-up with your primary care provider in 1 to 2 days for symptom recheck. Take nitrofurantoin as prescribed. Take Zofran for nausea. Please call your surgeon to discuss gallstones. Return to the emergency department if you have new or worsening symptoms, worsening abdominal pain, nausea, vomiting, fever, other concerns. Prescriptions: Nitrofurantoin Monohyd/M-Cryst [Nitrofurantoin Glenn-Mcr 100 mg] 100 mg PO BID #5 cap Transmission Status: Pending to [facility] ondansetron HCL [Ondansetron HCl] 4 mg PO Q6 PRN 3 Days #12 tab PRN Reason: Nausea And Vomiting Transmission Status: Pending to [facility] Referrals: Caden Mccormack [Primary Care Provider] - Time of Disposition: 11:56 - Critical Care Critical Care Time: No Attestation: On 12/17/19, the high probability of a clinically significant, sudden or life threatening deterioration of the following system(s) required my full and direct attention, intervention and personal management. The time I documented below is in addition to time spent performing reported procedures but includes the following listed in this critical care notation. Medical Decision Making - Medical Records Medical records reviewed: Yes: I reviewed the patient's medical records. - Be Inquiry Pt receiving controlled substance: No Vital Signs: 12/17/19 09:51 12/17/19 11:12 Temperature 98.4 F Temperature Source Oral Pulse Rate [Radial] 71 72 Respiratory Rate 17 20 Blood Pressure [Right Arm] 172/91 H 102/64 L Blood Pressure Mean [Right Arm] 118 76 Blood Pressure Source [Right Arm] Automatic Cuff Automatic Cuff Blood Pressure Position [Right Arm] Sitting 02 Sat by Pulse Oximetry 96 100 Oxygen Delivery Method Room Air Room Air - Lab Data Lab Results 12/17/19 09:50: Urine Color Yellow, Urine Appearance Clear, Urine pH 7.5, Ur Specific [place] 1.015, Urine Protein Trace, Urine Glucose (UA) Negative, Urine Ketones Negative, Urine Blood Negative, Urine Nitrate Negative, Urine Bilirubin 1+ A, Urine Urobilinogen 1.0, Ur Leukocyte Esterase 3+ A, Urine RBC 5-10, Urine WBC 20-50, Ur Squamous Epith Cells 3-5, Urine Bacteria 2+ 12/17/19 10:10: WBC 8.0, RBC 5.15, Hgb 13.6, Hct 41.5, MCV 80.6 L, MCH 26.3 L, MCHC 32.7, RDW 15.8, Plt Count 271, MPV 7.0 L, Neut % (Auto) 77.1, Lymph % (Auto) 15.5, Glenn % (Auto) 6.5, Eos % (Auto) 0.3, Baso % (Auto) 0.6, Neut # (Auto) 6.2, Lymph # (Auto) 1.2, Glenn # (Auto) 0.5, Eos # (Auto) 0.0, Baso # (Auto) 0.1 12/17/19 10:10: Sodium 139, Potassium 4.1, Chloride 105, Carbon Dioxide 25, Anion Gap 13.1, BUN 12, Creatinine 0.70, Estimated Creat Clear 47, Estimated GFR 81, Est GFR ( Amer) 97, Glucose 99, Calcium 9.5, Total Bilirubin 0.6, AST 31, ALT 17, Alkaline Phosphatase 76, Troponin I < 0.01, Total Protein 6.7, Albumin 3.9, Globulin 2.8, Albumin/Globulin Ratio 1.4, Lipase 115 12/17/19 10:10: Lactate 1.3 Result diagrams: 12/17/19 10:10 12/17/19 10:10 Orders (Tests/Meds): ED MEDICATIONS Discontinued Medications Generic Name Dose Route Start Last Admin Trade Name Freq PRN Reason Stop Dose Admin Ioversol 75 ml 12/17/19 10:57 12/17/19 10:58 Rad-Optiray 350 100ml Vial IV 12/17/19 10:58 75 ml ONCE ONE Administration Protocol Ondansetron HCl 4 mg 12/17/19 10:00 12/17/19 10:09 Zofran 4mg/2ml Vial IV 12/17/19 10:01 4 mg ONCE ONE Administration Sodium Chloride 10 ml 12/17/19 10:57 12/17/19 10:58 Rad-Saline Flush 10ml Syringe IV 12/17/19 10:58
[2019-12-17 10:50] LABS: Troponin I < 0.01 ng/ml (0.00-0.034)
[2019-12-17 11:12] VITALS: BP 102/64; PULSE 72; RESP 20; O2SAT 100
[2019-12-17 11:30] VITALS: BP 145/75; PULSE 60; RESP 18; O2SAT 99
[2019-12-17 12:06] VITALS: BP 145/75; PULSE 60; RESP 20; TEMP 36.9; O2SAT 99
== END 2019-12-17 12:07 | disposition home or self-care (01) ==
PROVIDERS: Emergency Provider Emergency Medicine; PCP Internal Medicine
DX: N30.00 Acute cystitis without hematuria (principal); R10.13 Epigastric pain; I25.10 Atherosclerotic heart disease of native coronary artery without angina pectoris; I10 Essential (primary) hypertension; E78.5 Hyperlipidemia, unspecified; I25.2 Old myocardial infarction; Z90.13 Acquired absence of bilateral breasts and nipples; Z79.899 Other long term (current) drug therapy
CPT/HCPCS: 74177; 80053; 81001; 83605; 83690; 84484; 85025; 87086; 87088; 87186; 93005; 96374; 96375; 99284; J2405; Q9967

== ENCOUNTER 2020-04-02 10:30 | Outpatient (CLI) | payer MEDICARE, SELFPAY ==
[2020-04-02 10:45] VITALS: BP 147/56; PULSE 58; RESP 20; TEMP 36.3; O2SAT 97
== END 2020-04-02 11:00 | disposition home or self-care (01) ==
LOC: INF 10:40
PROVIDERS: Visit Provider Family Medicine
DX: E83.51 Hypocalcemia (principal)
CPT/HCPCS: 96372; J0897

== ENCOUNTER → 2020-06-20 10:17 | Outpatient (CLI) | payer MEDICARE, SELFPAY ==
--- NOTE | 2020-06-20 10:21 | CT_ITS ---
PROCEDURE: CT ABDOMEN PELVIS WO CON CLINICAL INDICATION: NAUSEA,VOMITING COMPARISON: CT CT ABDOMEN PELVIS W CON from 12/17/2019 TECHNIQUE: Axial images obtained with sagittal and coronal reformats. All CT scans at the facility use one or more dose reduction, viz: automated exposure control, ma/kV adjustment per patient size (including targeted exams where dose is matched to indication, i.e. head), or iterative reconstruction technique. FINDINGS: LOWER THORAX: There is medium-sized hiatal hernia present. There is thickening of the gastroesophageal junction. This is nonspecific . Barium swallow or upper endoscopy may provide further evaluation. Minimal thickening noted of the pericardium. There is a right breast prosthesis present. ABDOMEN & PELVIS: There has been a prior cholecystectomy. Unremarkable appearing adrenal glands. The spleen and pancreas show no acute finding. No renal or ureteral calculi. No hydronephrosis. There is mild thickening of the duodenum. No evidence of appendicitis. No intestinal obstruction or free air. There is severe diverticulosis of the descending and sigmoid colon. There is some mild stranding of the pericolic fat in the left pelvic region with minimal thickening of the soft tissues at this area suggesting mild diverticulitis. No abscess or free air. Artifact is present from a left hip prosthesis. There is a pessary device also noted. There is a small left inguinal hernia containing fat. There has been a prior hysterectomy. IMPRESSION: 1. Suspect mild diverticulitis of the sigmoid colon with extensive colonic diverticulosis. 2. Mild thickening of the duodenum nonspecific and may be due to nondistention versus mild duodenitis. 3. Moderate-sized hiatal hernia with nonspecific thickening of the GE junction Dictated by: Hao Merritt MD 06/20/2020 15:30 Hao Merritt MD in [place] 06/20/2020 15:30
== END ==
PROVIDERS: PCP Internal Medicine; Visit Provider Internal Medicine
DX: R11.2 Nausea with vomiting, unspecified (principal)
CPT/HCPCS: 74176

== ENCOUNTER 2020-10-16 11:15 | Outpatient (CLI) | payer MEDICARE, SELFPAY ==
[2020-10-16 11:40] VITALS: BP 159/69; PULSE 58; RESP 17; TEMP 36.6; O2SAT 97
== END 2020-10-16 11:45 | disposition home or self-care (01) ==
LOC: INF 11:25
PROVIDERS: Visit Provider Internal Medicine
DX: M81.0 Age-related osteoporosis without current pathological fracture (principal)
CPT/HCPCS: 96372; J0897

== ENCOUNTER → 2021-05-19 07:00 | Outpatient (CLI) | payer MEDICARE, SELFPAY ==
--- NOTE | 2021-05-19 07:02 | NM_ITS ---
APPROVED REPORT Exam: Nuclear Stress Test Indication: CAD, HTN, HYPERLIPIDEMIA, ABN EKG Patient Location: Outpatient Stress Tech: Jolanta Atkins [place] Tech:Beverley Montes JACOBAgusto RT (R)(N)(M) Ht: 5 ft 2 in Wt: 150 lbs Bra Size: C HR: 57 bpm BP: 156/69 mmHg BSA: 1.69 m2 BMI: 27.4 History: CAD, HTN, HYPERLIPIDEMIA, ABN EKG Procedure: Patient received a 0.4 mg of intravenous Lexiscan, resting heart rate 57 bpm, resting blood pressure 156/69 mmHg, with Lexiscan maximum heart rate achived was 80 bpm which is Less than 85 % of the maximum predicted heart rate and blood pressure was 166/68 mmHg. SOB Electrocardiogram Resting electrocardiogram shows sinus rhythm, with Lexiscan there is less than 1.[address] segment depression noted from the baseline EKG. The EKG portion of the Lexiscan is nondiagnostic. Cardiac Stress and Resting SPECT Images: Cardiac Stress and Resting SPECT images were obtained using technetium 99m Myoview 31.7 mCi stress and 10.84 mCi at rest. Gated SPECT for analysis of segmental wall motion and calculation of the ejection fraction also done. Cardiac stress and resting SPECT images show uniform myocardial activity without segmental perfusion abnormality, computer derived ejection fraction is over 65% with no regional wall motion abnormality, right ventricle is normal size and contractility. Conclusion: 1. The EKG portion of the Lexiscan is nondiagnostic. 2. No scintigraphic evidence of reversible ischemia seen, computer derived ejection fraction is over 65% with no regional wall motion abnormality, right ventricle is normal size and contractility. 3. Normal Lexiscan Myoview study. Electronically signed by : Govind Gilman MD 05/22/2021 14:19:06
--- NOTE | 2021-05-19 07:02 | CA_ITS ---
APPROVED REPORT EXAM: Comprehensive 2D, Doppler, and color-flow Echocardiogram Forensic Photographer: Marissa Giraldo, RCS, RVS Ht: 5 ft 2 in Wt: 160lbs BSA: 1.74 BP: 163/62 mmHg Indications: QID-HY-xeqxafat stents/FL , Abn EKG, 2D Dimensions Aortic Root 3.55 cm F: 2.7 - 3.3 LA Volume 49.50 mL LVOT 1.75 cm (M/F) 1.5-2.5 LA Volume Index 28.44 mL/m2 (M/F) 16-34 Ascending Aorta 2.88 cm F: 2.3 - 3.1 M-Mode Dimensions RVDd 2.29 cm (0.9-2.6) LA Diam 3.73 cm (1.9-4.0) LVDd 4.43 cm (3.5-5.7) Ao Diam 3.44 cm (2.0-3.7) LVDs 2.98 cm (3.5-5.7) IVSd 0.80 cm (0.6-1.1) PWd 0.80 cm (0.6-1.1) EF (Teich) 61.40% EPSs 0.44 cm FS 32.70% EDV (Teich) 89.10 mL TAPSE 2.54 (<1.7) ESV (Teich) 34.40 mL LV Diastology E Decel Time 310.00 (160-240 msec) E/A Ratio 0.62 MED E' 7.50 (< 7 cm/sec) MED A' 13.40 cm/s E'/MED E' Ratio 11.05 (>14) LAT E' 4.90 (<10 cm/sec) LAT A' 12.50 cm/s E/LAT E' Ratio 16.92 (>14) Aortic Valve LVOT Max 95.00 (70-110 cm/s) LVOT VTI 23.47 cm AoV Peak John Paul. 173.00 (50-130 cm/s) AI PHT 479.00 ms AO Peak GR. 12.00 mmHg AO Mean GR. 6.20 (<5 mmHg) AO VTI 39.40 (18-25 cm) DAVIDE (VTI) 1.43 (2.5-4.5 cm2) Mitral Valve MV A Velocity 133.00 (40-130 cm/s) E/A Ratio 0.62 MV Decel. Time 310.00 (160-240 ms) MV Mean Gr. 1.80 (<2mmHg) Pulmonary Valve PV Peak Velocity 72.00 (50-150 cm/s) IL End VMAX 190.00 cm/s Tricuspid Valve TR P. Velocity 259.00 cm/s RAP Estimate 10.00 mmHg RVSP 36.80 mmHg Left Ventricle Left atrium is mildly enlarged, left ventricle is normal size, mild concentric left ventricular hypertrophy, visually estimated ejection fraction 55% with no regional wall motion abnormality, grade 1 diastolic dysfunction seen without tissue Doppler evidence of raise left atrial pressure. Right Ventricle Right atrium and right ventricle are normal size and contractility. Aortic Valve Aortic valve is thickened and calcified without Doppler evidence of aortic stenosis, there is mild aortic insufficiency. Mitral Valve Mitral valve leaflets are minimally thickened, there is mild mitral annular calcification present, there is no mitral stenosis, there is mild mitral regurgitation. Tricuspid Valve Tricuspid grossly normal, there is mild tricuspid regurgitation, calculated right ventricular systolic pressure 36 mmHg. Pulmonic Valve Pulmonic valve is poorly visualized. Great Vessels Aortic root is normal size. Inferior vena cava is poorly visualized. Pericardium No significant pericardial effusion noted. Conclusion 1. Mildly enlarged left atrium, normal left ventricular size, mild concentric left ventricular hypertrophy, visually estimated ejection fraction 55% with no regional wall motion abnormality, grade 1 diastolic dysfunction seen without tissue Doppler evidence of raise left atrial pressure. 2. Thickened and calcified aortic valve without Doppler evidence of aortic stenosis, there is mild aortic insufficiency. 3. Mild mitral and tricuspid regurgitation, calculated right ventricular systolic pressure 36 mmHg. 4. No significant pericardial effusion noted. 5. Inferior vena cava is poorly visualized. Electronically signed by : Govind Gilman MD 05/19/2021 19:44:02
--- NOTE | 2021-05-19 10:16 | HMH.ITSHM ---
Current Home Medications as stated by this patient Maria Ines Lucio or medical device sales representative. []ODANSETRON MEMANTINE LOSARTAN BISOPROLOL ROSUVASTATIN ISOSORBIDE ASA
== END ==
PROVIDERS: PCP Internal Medicine; Visit Provider Urology
DX: E78.5 Hyperlipidemia, unspecified (principal); I10 Essential (primary) hypertension; I25.10 Atherosclerotic heart disease of native coronary artery without angina pectoris; K21.00 Gastro-esophageal reflux disease with esophagitis, without bleeding; R94.31 Abnormal electrocardiogram [ECG] [EKG]; Z95.5 Presence of coronary angioplasty implant and graft
CPT/HCPCS: 78452; 93306; A9502

== ENCOUNTER 2021-05-19 10:20 | Emergency (ER) | payer MEDICARE, SELFPAY ==
[2021-05-19] VITALS (7 sets, daily range): BP systolic 124–248; BP diastolic 57–101; PULSE 56–64; RESP 17–18; TEMP 36.8; O2SAT 92–97; BMI 27.4
--- NOTE | 2021-05-19 10:43 | XR_ITS ---
FINAL REPORT CLINICAL HISTORY: cough FINDINGS: SINGLE VIEW CHEST. There is mild cardiomegaly. The mediastinum is unremarkable. There is a small hiatal hernia. There are mild chronic changes in both lungs. There is no pneumothorax. IMPRESSION: No acute process. Reviewed, Interpreted and Dictated by Colin Wright MD Transcribed by Little Martin Authenticated by Colin Wright MD on 05/19/2021 12:13:17 PM [facility]
[2021-05-19 10:53] LABS: Chloride 103 mmol/L (98-107); Potassium 3.5 mmoL/L (3.5-5.1); Sodium 139 mmol/L (136-145)
[2021-05-19 10:56] LABS: Alanine Aminotransferase 17 U/L (12-78); Alkaline Phosphatase 69 U/L (38-126); Anion Gap 11.5 mEq/L (5-15); Aspartate Amino Transferase 26 U/L (14-36); Bilirubin,Total 0.7 mg/dl (0.2-1.3); Blood Urea Nitrogen 8 mg/dl (7-17); Calcium 10.3 mg/dl (8.4-10.2); Carbon Dioxide 28 mmol/L (22.0-30.0); Creatinine Clearance Estimated 47 mL/min (50-200); Estimated Glomerular Filt Rate 69 ml/min (>60); GFR (African American) 83 ML/MIN (>60); Glucose 126 mg/dl (74-100); Lipase 65 U/L (23-300)
[2021-05-19 10:57] LABS: Albumin Level 4.1 g/dl (3.5-5.0); Albumin/Globulin Ratio 1.5 (1.1-1.8); Globulin 2.7 g/dL (1.3-3.2); Total Protein,Serum 6.8 g/dl (6.3-8.2)
--- NOTE | 2021-05-19 11:04 | PC.NURSE ---
using EKG that was brought over from stress test.
[2021-05-19 11:11] LABS: Troponin I < 0.01 ng/ml (0.00-0.034)
--- NOTE | 2021-05-19 11:19 | PC.NURSE ---
rad at bedside
[2021-05-19 11:29] LABS: Thyroid Stimulating Hormone 1.81 uIU/mL (0.465-4.68)
[2021-05-19 11:32] LABS: Basophils # 0.1 K/mm3 (0-0.2); Basophils % 1.3 % (0.1-2.0); Eosinophils % 0.6 % (0.1-12.0); Hemoglobin 13.6 g/dL (12.2-16.2); Lymphocytes # 1.5 K/mm3 (0.7-4.5); Lymphocytes % 24.2 % (10-50); Mean Corpuscular HGB Conc 31.7 g/dL (31.8-35.4); Mean Corpuscular Hemoglobin 26.8 pg (27.0-31.2); Mean Corpuscular Volume 84.7 fl (81-99); Mean Platelet Volume 7.8 fl (7.4-10.4); Monocytes # 0.4 K/mm3 (0.1-1.0); Monocytes % 6.4 % (1.7-9.3); Neutrophils # 4.2 K/mm3 (1.8-7.8); Neutrophils % 67.5 % (37.0-80.0); Platelet Count 283 K/mm3 (142-424); Red Blood Count 5.08 M/mm3 (4.20-5.40); Red Cell Distribution Width 15.9 % (11.5-17.5); White Blood Count 6.2 K/mm3 (4.8-10.8)
--- NOTE | 2021-05-19 12:03 | HMH.EDGENADL ---
ED Disposition Clinical Impression: Hypertensive urgency Disposition: Home, Self-Care Condition on Discharge: Good Referrals: Caden Mccormack [Primary Care Provider] - - Critical Care Critical Care Time: No Attestation: On 05/19/21, the high probability of a clinically significant, sudden or life threatening deterioration of the following system(s) required my full and direct attention, intervention and personal management. The time I documented below is in addition to time spent performing reported procedures but includes the following listed in this critical care notation. Medical Decision Making - Medical Records Medical records reviewed: Yes: I reviewed the patient's medical records. - Be Inquiry Pt receiving controlled substance: No Vital Signs: 05/19/21 10:20 05/19/21 10:31 05/19/21 11:10 Temperature 98.2 F Temperature Source Oral Pulse Rate 63 56 L Pulse Rate [Right Radial] 60 Respiratory Rate 17 Blood Pressure 213/96 H 186/88 H Blood Pressure [Right Arm] 248/101 H Blood Pressure Mean [Right Arm] 150 Blood Pressure Source [Right Arm] Automatic Cuff Blood Pressure Position [Right Arm] Sitting 02 Sat by Pulse Oximetry 97 96 94 L Oxygen Delivery Method Room Air 05/19/21 11:15 05/19/21 11:30 05/19/21 12:00 Temperature Temperature Source Pulse Rate 61 64 64 Pulse Rate [Right Radial] Respiratory Rate Blood Pressure 176/91 H 124/57 L 135/63 Blood Pressure [Right Arm] Blood Pressure Mean [Right Arm] Blood Pressure Source [Right Arm] Blood Pressure Position [Right Arm] 02 Sat by Pulse Oximetry 94 L 92 L 93 L Oxygen Delivery Method - Lab Data Lab Results 05/19/21 10:30: WBC 6.2, RBC 5.08, Hgb 13.6, Hct 43.0, MCV 84.7, MCH 26.8 L, MCHC 31.7 L, RDW 15.9, Plt Count 283, MPV 7.8, Neut % (Auto) 67.5, Lymph % (Auto) 24.2, [place] % (Auto) 6.4, Eos % (Auto) 0.6, Baso % (Auto) 1.3, Neut # (Auto) 4.2, Lymph # (Auto) 1.5, [place] # (Auto) 0.4, Eos # (Auto) 0.0, Baso # (Auto) 0.1 05/19/21 10:30: Sodium 139, Potassium 3.5, Chloride 103, Carbon Dioxide 28, Anion Gap 11.5, BUN 8, Creatinine 0.80, Estimated Creat Clear 47, Estimated GFR 69, Est GFR ( Amer) 83, Glucose 126 H, Calcium 10.3 H, Total Bilirubin 0.7, AST 26, ALT 17, Alkaline Phosphatase 69, Troponin I < 0.01, Total Protein 6.8, Albumin 4.1, Globulin 2.7, Albumin/Globulin Ratio 1.5, Lipase 65, TSH 1.81 Result diagrams: 05/19/21 10:30 05/19/21 10:30 Orders (Tests/Meds): ED MEDICATIONS Generic Name Dose Route Start Last Admin Trade Name Freq PRN Reason Stop Dose Admin Sodium Chloride 8 ml 05/19/21 10:44 Sodium Chloride 0.9% 10ml Vial IV 06/18/21 10:43 NEEDED PRN dilute pepcid Discontinued Medications Generic Name Dose Route Start Last Admin Trade Name Freq PRN Reason Stop Dose Admin Famotidine 20 mg 05/19/21 10:44 05/19/21 11:03 Famotidine 20mg/2ml Vial IV 05/19/21 10:45 20 mg ONCE ONE Administration Hydralazine HCl 20 mg 05/19/21 10:44 05/19/21 11:03 Hydralazine 20mg/Ml Vial IV 05/19/21 10:45 20 mg ONCE ONE Administration Ondansetron HCl 4 mg 05/19/21 10:44 05/19/21 11:03 Ondansetron 4mg/2ml Vial IV 05/19/21 10:45 4 mg ONCE ONE Administration ORDERS Category Date Time Status XR chest portable Stat Exams 05/19/21 10:43 Taken Troponin I Q3H Lab 05/19/21 13:45 Ordered Troponin I Q3H Lab 05/19/21 16:45 Ordered - Radiology Data #1 Image(s): Chest Image Reviewed: Yes I reviewed the patient's radiology results, Yes I reviewed the patient's radiology image, Yes I have reviewed radiologist's interpretation Preliminary Findings: Normal/NAD - ECG Data Tracing #1 I reviewed this ECG and interpreted as documented below: Bradycardic rate of 58 bpm, normal VA interval, no specific ST changes. ECG initial impression date: 05/19/21 ECG initial impression time: 08:51 - Reevaluation(s) Time: 12:08 Reeval
--- NOTE | 2021-05-19 12:07 | PC.NURSE ---
spoke with Elias Stern, he states that pt needs to reschedule her stress test, Dr forrest aware
== END 2021-05-19 12:20 | disposition home or self-care (01) ==
PROVIDERS: Emergency Provider Emergency Medicine; PCP Internal Medicine
DX: I16.0 Hypertensive urgency (principal); K21.9 Gastro-esophageal reflux disease without esophagitis; E78.5 Hyperlipidemia, unspecified; I25.2 Old myocardial infarction; Z79.899 Other long term (current) drug therapy
CPT/HCPCS: 71045; 78452; 80053; 83690; 84443; 84484; 85025; 93306; 99282; A9502; J2405

== ENCOUNTER → 2021-05-22 10:08 | Outpatient (CLI) | payer MEDICARE, SELFPAY ==
--- NOTE | 2021-05-22 | CA_ITS ---
APPROVED REPORT Exam: Pharmacologic Technologist: Jolanta Atkins, Ht: 5 ft 2 in Wt: 160 lbs BSA: 1.74 m2 HR: 57 bpm BP: 156/69 mmHg Rhythm: sinus rhythm Medical History Medical History: HTN, Hyperlipidemia Medications: Isosorbide,,,,, Aspirin,,,,, Losartan,,,,, BisOPROLOL,,,,, MeMANTINE,,,,, ONdansetron,,,,, DexlansAPRAZOLE,,,,, MonONITRATE,,,,, RoSUVASatin,,,,, FumERATE,,,,, Allergies: oxycodone Cardiac Risk Factors: HTN, Hyperlipidemia, FHX of CAD Stress Test Details Test: LEXISCAN HR Resting HR: 58 bpm Max Heart Rate (APMHR): 139.175331 bpm Max HR Achieved: 81 bpm Target HR (85% APMHR): 118.185989 bpm % of APMHR: 58.27 Recovery HR: 72 bpm BP Resting BP: 156/69 mmHg Max BP: 185/79 mmHg Recovery BP: 151.0/70.0 mmHg ECG Clinical Exercise duration: 04:07 min Highest Stage Achieved: Exercise capacity: 1.0 METs Stress ECG Conclusion PT C/O SHORTNESS OF BREATH AT PEAK INFUSION. NO CP. SOA RESOLVED IN RECOVERY. OCC PVC. LESS THAN 1.[address] DEPRESSION. IMAGES TO FOLLOW. Test Summary REST 13:40 . . 58 . 156/ 69 . . Stage 1 . . . . . . . Myoview Injected Stage 1 01:00 . . 70 . . . . Stage 2 01:00 . . 80 . 155/ 72 . . Stage 3 01:00 . . 81 . 166/ 68 . . Stage 4 01:00 . . 77 . . . . Stage 4 01:07 . . 77 . . . Stop exercise at 04:07 RECOVERY 01:00 . . 76 . 162/ 75 . . RECOVERY 02:00 . . 74 . 185/ 79 . . RECOVERY 03:00 . . 73 . 185/ 79 . . RECOVERY 04:00 . . 72 . 151/ 70 . . RECOVERY 04:15 . . 72 . 151/ 70 . . Electronically signed by : Govind Gilman MD 05/22/2021 11:25:50
== END ==
PROVIDERS: PCP Internal Medicine; Visit Provider Nurse Practitioner Family
DX: I25.10 Atherosclerotic heart disease of native coronary artery without angina pectoris (principal)
CPT/HCPCS: 93017; A9502; J2785

== ENCOUNTER → 2021-06-03 10:58 | Outpatient (CLI) | payer MEDICARE, SELFPAY ==
[2021-06-03 13:55] LABS: Chloride 105 mmol/L (98-107); Potassium 3.9 mmoL/L (3.5-5.1); Sodium 136 mmol/L (136-145)
[2021-06-03 13:58] LABS: Anion Gap 4.9 mEq/L (5-15); Blood Urea Nitrogen 15 mg/dl (7-17); Calcium 9.7 mg/dl (8.4-10.2); Carbon Dioxide 30 mmol/L (22.0-30.0); Estimated Glomerular Filt Rate 69 ml/min (>60); GFR (African American) 83 ML/MIN (>60); Glucose 89 mg/dl (74-100)
== END ==
PROVIDERS: PCP Internal Medicine; Visit Provider Urology
DX: E78.5 Hyperlipidemia, unspecified (principal); I16.0 Hypertensive urgency; I25.10 Atherosclerotic heart disease of native coronary artery without angina pectoris; Z95.5 Presence of coronary angioplasty implant and graft
CPT/HCPCS: 36415; 80048

== ENCOUNTER 2021-06-10 15:29 | Emergency (ER) | payer MEDICARE, SELFPAY ==
[2021-06-10 15:30] VITALS: BP 179/86; PULSE 65; RESP 18; TEMP 36.7; O2SAT 97; BMI 24.0
--- NOTE | 2021-06-10 16:19 | HMH.EDGENADL ---
ED Disposition Clinical Impression: Nausea and vomiting Qualifiers: Vomiting type: unspecified Qualified Code(s): R11.2 - Nausea with vomiting, unspecified Disposition: Home, Self-Care Condition on Discharge: Good Instructions: DI for Vomiting -- Adult Additional Instructions: Zofran as needed for nausea and vomiting. Follow-up with gastroenterology in [place] as scheduled. Prescriptions: Ondansetron [Zofran 4mg ODT] 4 mg PO TIDP PRN #10 tab PRN Reason: Nausea And Vomiting Transmission Status: Pending to [facility] Referrals: Caden Mccormack [Primary Care Provider] - - Critical Care Critical Care Time: No Attestation: On 06/10/21, the high probability of a clinically significant, sudden or life threatening deterioration of the following system(s) required my full and direct attention, intervention and personal management. The time I documented below is in addition to time spent performing reported procedures but includes the following listed in this critical care notation. Medical Decision Making - Medical Records Medical records reviewed: Yes: I reviewed the patient's medical records. MR Comment: Cardiology office note from today reviewed. EKG obtained in cardiology office reviewed. Note indicates for patient to follow-up with her bike shop manager at [facility] for nausea. No note of instructing patient to come to the emergency room. I therefore spoke with Alessia on the phone and she confirms that she told the patient to come to the emergency room to have nausea treated, might need some IV fluids. - Be Inquiry Pt receiving controlled substance: No Orders (Tests/Meds): ED MEDICATIONS Generic Name Dose Route Start Last Admin Trade Name Freq PRN Reason Stop Dose Admin Ondansetron HCl 4 mg 06/10/21 16:33 Ondansetron 4mg/2ml Vial IM 06/10/21 16:34 ONCE ONE General Adult HPI - General Stated complaint: vomiting Time Seen by Provider: 06/10/21 16:19 - History of Present Illness HPI narrative: History obtained from patient and her . states that she has stomach problems and has had problems with vomiting after eating for over a year. She sees a bike shop manager at [facility]. He says she has a hiatal hernia. He says over the past couple of months the vomiting is getting worse, she now vomits about once a day. She was in the electric motor and generator assembler office today for routine visit for blood pressure and apparently vomited before leaving and then was advised to come to the emergency room for a shot of Zofran. The patient's says that is all we need, just a shot of Zofran . The patient denies any current nausea. Denies abdominal pain. Denies fever. Denies constipation or diarrhea. Denies chest pain. Denies shortness of breath. Denies urinary symptoms. - Related Data Home Medications Medication Instructions Recorded Confirmed Aspirin [Aspir 81] 81 mg PO DAILY 08/27/17 06/10/21 Dexlansoprazole [Dexilant] 60 mg PO DAILY 08/27/17 06/10/21 bisoproloL fumarate [Zebeta 5mg 5 mg PO DAILY 08/27/17 06/10/21 tablet] Isosorbide Mononitrate [Imdur 30mg 30 mg PO DAILY 09/21/19 06/10/21 ER tablet] Rosuvastatin Calcium 20 mg PO HS 09/21/19 06/10/21 memantine 10 mg tablet 10 mg PO BID tab 05/06/21 06/10/21 Previous Rx's Medication Instructions Recorded ondansetron HCL [Ondansetron HCl] 4 mg PO Q6 PRN 3 Days #12 tab 12/17/19 furosemide 20 mg tablet 20 mg PO DAILY PRN #30 tab 05/26/21 losartan 100 mg tablet 100 mg PO DAILY #30 tab 06/09/21 Ondansetron [Zofran 4mg ODT] 4 mg PO TIDP PRN #10 tab 06/10/21 amlodipine 5 mg tablet 5 mg PO DAILY #30 tab 06/10/21 Allergies Allergy/AdvReac Type Severity Reaction Status Date / Time oxycodone [OXYCODONE] Allergy Unknown I-RASH Verified 06/10/21 14:51 [facility] History - Hepatitis A Screen Attestation statement:: This patient has been screened for Hepatitis A risk factors. I have
[2021-06-10 16:45] VITALS: BP 170/76; PULSE 62; RESP 20; TEMP 36.7; O2SAT 95
== END 2021-06-10 16:47 | disposition home or self-care (01) ==
PROVIDERS: Emergency Provider Emergency Medicine; PCP Internal Medicine
DX: R11.2 Nausea with vomiting, unspecified (principal); K44.9 Diaphragmatic hernia without obstruction or gangrene; I25.10 Atherosclerotic heart disease of native coronary artery without angina pectoris; E78.5 Hyperlipidemia, unspecified; I10 Essential (primary) hypertension; I25.2 Old myocardial infarction
CPT/HCPCS: 96372; 99281; J2405

== ENCOUNTER → 2021-06-23 10:19 | Outpatient (CLI) | payer MEDICARE, SELFPAY ==
[2021-06-24 08:31] LABS: Covid-19 Nasal PCR Sendout Lex NOT DETECTED
== END ==
PROVIDERS: Visit Provider Nurse Practitioner
DX: Z20.822 Contact with and (suspected) exposure to COVID-19 (principal)
CPT/HCPCS: C9803; U0004; U0005

== ENCOUNTER → 2021-09-10 11:44 | Outpatient (CLI) | payer MEDICARE, SELFPAY ==
[2021-09-10 12:24] LABS: Basophils # 0.1 K/mm3 (0-0.2); Basophils % 1.1 % (0.1-2.0); Eosinophils # 0.1 K/mm3 (0.0-0.4); Eosinophils % 1.5 % (0.1-12.0); Hematocrit 42.3 % (37.0-47.0); Hemoglobin 13.2 g/dL (12.2-16.2); Lymphocytes # 2.1 K/mm3 (0.7-4.5); Lymphocytes % 29.4 % (10-50); Mean Corpuscular HGB Conc 31.3 g/dL (31.8-35.4); Mean Corpuscular Hemoglobin 26.8 pg (27.0-31.2); Mean Corpuscular Volume 85.5 fl (81-99); Mean Platelet Volume 7.1 fl (7.4-10.4); Monocytes # 0.5 K/mm3 (0.1-1.0); Monocytes % 7.5 % (1.7-9.3); Neutrophils # 4.2 K/mm3 (1.8-7.8); Neutrophils % 60.5 % (37.0-80.0); Platelet Count 305 K/mm3 (142-424); Red Blood Count 4.94 M/mm3 (4.20-5.40); Red Cell Distribution Width 15.6 % (11.5-17.5)
[2021-09-10 13:01] LABS: Chloride 107 mmol/L (98-107); Potassium 5.2 mmoL/L (3.5-5.1); Sodium 138 mmol/L (136-145)
[2021-09-10 13:03] LABS: Alanine Aminotransferase 15 U/L (12-78); Anion Gap 10.2 mEq/L (5-15); Aspartate Amino Transferase 23 U/L (14-36); Bilirubin,Unconjugated 0.4 mg/dL (0.0-1.1); Blood Urea Nitrogen 16 mg/dl (7-17); Carbon Dioxide 26 mmol/L (22.0-30.0); Estimated Glomerular Filt Rate 69 ml/min (>60); GFR (African American) 83 ML/MIN (>60)
[2021-09-10 13:04] LABS: Albumin Level 3.7 g/dl (3.5-5.0); Alkaline Phosphatase 88 U/L (38-126); Bilirubin,Direct 0.1 mg/dl (0.0-0.4); Bilirubin,Indirect 0.4 mg/dL (0.0-0.9); Bilirubin,Total 0.5 mg/dl (0.2-1.3); Calcium 10.4 mg/dl (8.4-10.2); Chol/HDL Ratio 3.6 (1-3.5); Cholesterol 148 mg/dl (140-200); Glucose 112 mg/dl (74-100); HDL Cholesterol 41 mg/dl (40-60); Total Protein,Serum 5.9 g/dl (6.3-8.2); Triglycerides 202 mg/dl (30-150); VLDL Cholesterol 40 mg/dL (0-40)
[2021-09-10 13:15] LABS: Direct LDL Cholesterol 82.76 mg/dL (100-129)
[2021-09-10 13:20] LABS: Free T4 (Free Thyroxine) 1.32 ng/dl (0.78-2.19)
[2021-09-10 13:33] LABS: Thyroid Stimulating Hormone 1.96 uIU/mL (0.465-4.68)
== END ==
PROVIDERS: Visit Provider Physician Assistant
DX: E78.5 Hyperlipidemia, unspecified (principal); I10 Essential (primary) hypertension; I25.10 Atherosclerotic heart disease of native coronary artery without angina pectoris; R94.31 Abnormal electrocardiogram [ECG] [EKG]; Z95.5 Presence of coronary angioplasty implant and graft
CPT/HCPCS: 36415; 80048; 80061; 80076; 83735; 84439; 84443; 85025

== ENCOUNTER → 2022-05-19 12:28 | Outpatient (CLI) | payer MEDICARE, SELFPAY ==
[2022-05-19 12:59] LABS: Basophils # 0.1 K/mm3 (0-0.2); Basophils % 0.9 % (0.1-2.0); Eosinophils # 0.1 K/mm3 (0.0-0.4); Eosinophils % 0.8 % (0.1-12.0); Hematocrit 43.8 % (37.0-47.0); Hemoglobin 14.1 g/dL (12.2-16.2); Lymphocytes # 2.2 K/mm3 (0.7-4.5); Lymphocytes % 27.7 % (10-50); Mean Corpuscular HGB Conc 32.2 g/dL (31.8-35.4); Mean Corpuscular Hemoglobin 27.8 pg (27.0-31.2); Mean Corpuscular Volume 86.2 fl (81-99); Mean Platelet Volume 7.7 fl (7.4-10.4); Monocytes # 0.7 K/mm3 (0.1-1.0); Neutrophils # 4.8 K/mm3 (1.8-7.8); Neutrophils % 61.6 % (37.0-80.0); Platelet Count 295 K/mm3 (142-424); Red Blood Count 5.08 M/mm3 (4.20-5.40); Red Cell Distribution Width 15.6 % (11.5-17.5); White Blood Count 7.8 K/mm3 (4.8-10.8)
[2022-05-19 14:21] LABS: Chloride 105 mmol/L (98-107); Potassium 4.4 mmoL/L (3.5-5.1); Sodium 140 mmol/L (136-145)
[2022-05-19 14:24] LABS: Alanine Aminotransferase 14 U/L (12-78); Albumin Level 3.8 g/dl (3.5-5.0); Albumin/Globulin Ratio 1.5 (1.1-1.8); Alkaline Phosphatase 90 U/L (38-126); Anion Gap 11.4 mEq/L (5-15); Aspartate Amino Transferase 25 U/L (14-36); Bilirubin,Total 0.5 mg/dl (0.2-1.3); Blood Urea Nitrogen 13 mg/dl (7-17); Carbon Dioxide 28 mmol/L (22.0-30.0); Cholesterol 171 mg/dl (140-200); Estimated Glomerular Filt Rate 69 ml/min (>60); GFR (African American) 83 ML/MIN (>60); Globulin 2.5 g/dL (1.3-3.2); Glucose 79 mg/dl (74-100); Total Protein,Serum 6.3 g/dl (6.3-8.2); Triglycerides 131 mg/dl (30-150); VLDL Cholesterol 26 mg/dL (0-40)
[2022-05-19 14:25] LABS: Calcium 9.9 mg/dl (8.4-10.2); HDL Cholesterol 43 mg/dl (40-60)
[2022-05-19 14:36] LABS: Direct LDL Cholesterol 93.46 mg/dL (100-129)
[2022-05-19 15:13] LABS: Vitamin B12 319 pg/mL (239-931)
== END ==
PROVIDERS: PCP Internal Medicine; Visit Provider Internal Medicine
DX: I10 Essential (primary) hypertension (principal); E78.5 Hyperlipidemia, unspecified; K21.9 Gastro-esophageal reflux disease without esophagitis; Z85.3 Personal history of malignant neoplasm of breast
CPT/HCPCS: 80053; 80061; 82607; 85025

== ENCOUNTER 2022-07-20 16:00 | Outpatient (RCR) | payer MEDICARE, SELFPAY ==
--- NOTE | 2022-06-02 14:53 | HMH.PTOPEV ---
PT Outpatient Evaluation Rehab PT Outpatient Evaluation Start: 06/02/22 14:10 Freq: Status: Active Protocol: Document 06/02/22 14:10 MAKAYLA (Rec: 06/02/22 14:53 MAKAYLA [id number]) E-signed By Tabby Gu, PT Outpatient Therapy Subjective History Subjective History Pt is an 81 y/o female that reports to PT with her . Pt's provided subjective history due to pt having dementia. Pt's reports he has noticed her gait speed has decreased and she has needed to hold onto furniture while walking around the house. Pt denies fall. Pt 's also reports she has some difficulty getting in /out of the tub due to weakness and balance. Pt's states he wants her to participate in PT to improve strength and balance to prevent falls. Medical History: Dementia, L hip replacement Balance: 5x sit to stand 15 TUG 11 without AD Tandem stance firm surface EO 30 with moderate sway, no LOB Chief Complaint Weakness,Other Symptoms Relieved By Rest/Positioning Symptoms Aggravated By Physical Activity,Walking Prior Functional Limitations None Current Functional Limitations Housework,Squatting,Walking, Balance Lumbopelvic Eval Manual Muscle Test Bilateral Knee Extension Strength Grade 4 Good Knee Flexion Strength Grade 4 Good Hip Flexion Strength Grade 4 Good Hip Abduction Strength Grade 4- Good- Hip Adduction Strength Grade 4- Good- Hip Extension Strength Grade 4- Good- Ankle Dorsiflexion Strength Grade 5 Normal Balance Eval Subjective Hx of Complaint Comment generalized weakness and balance deficits Chief Complaint vertigo No Did you feel dizzy, unsteady or faint? No Prior Functional Limitations Prior Functional [place] Level none Current Functional Limitations Comment decreased gait speed with shuffling steps, generalized weakness Hx of Falls Hx Falls No Gait/Posture Asssessment General Gait Observation
== END 2022-07-20 16:05 | disposition home or self-care (01) ==
LOC: PT 16:00
PROVIDERS: PCP Internal Medicine; Visit Provider Internal Medicine
DX: R26.81 Unsteadiness on feet (principal); M62.81 Muscle weakness (generalized)
CPT/HCPCS: 97110; 97112; 97163; 97164; 97530

== ENCOUNTER 2022-09-05 10:08 | Emergency (ER) | payer MEDICARE, OTHER, SELFPAY ==
[2022-09-05] VITALS (12 sets, daily range): BP systolic 63–176; BP diastolic 20–87; PULSE 51–68; RESP 13–18; TEMP 36.4–36.6; O2SAT 95–99; BMI 28.1
--- NOTE | 2022-09-05 10:11 | ECG_ITS ---
APPROVED REPORT Exam: Resting ECG HR:55 bpm ECG Measurements Heart Rate 55 AXES AZ 169 P 38 QRSd 94 QRS -17 QT 461 T 62 QTc 450 Conclusion SINUS BRADYCARDIA Late R wave progression Isolated Q in III No changes from prior ABNORMAL ECG UNCONFIRMED REPORT Electronically signed by : Bladimir Varma MD 09/05/2022 12:52:08
--- NOTE | 2022-09-05 10:11 | HMH.EDDIZZ ---
Discharge Plan Disposition Patient Disposition: Home, Self-Care Prescriptions Prescriptions: No Action pantoprazole 40 mg tablet,delayed release (DR/EC) 40 mg PO DAILY memantine 10 mg tablet 10 mg PO BID losartan 100 mg tablet 50 mg PO BID Qty: 30 5RF aspirin 81 MG tablet,delayed release (DR/EC) 81 mg PO DAILY bisoprolol fumarate 5 MG tablet 5 mg PO DAILY rosuvastatin 20 MG tablet 20 mg PO HS ondansetron HCl 4 MG tablet 4 mg PO Q6 PRN (Reason: Nausea And Vomiting) 3 Days Qty: 12 0RF Referrals Follow up/Referrals: Provider,Referral, [Primary Care Provider] - See instructions Activity Restrictions/Add. Instructions Additional Instructions/Restrictions: Please stop taking your bisoprolol (blood pressure medication). Follow-up with your primary care doctor in the next 2 to 3 days to discuss whether you should stay on your bisoprolol. Drink plenty of fluids. Return to the emergency department immediately if you feel worse in any way. I believe that your symptoms today may be partially due to this blood pressure medication you are on. Clinical Impressions Clinical Impression: Orthostatic hypotension, Adverse effect of beta-ilan Instructions Patient Instructions: DI for Orthostatic Hypotension Discharge ED Provider: Stefan Anna General Chief Complaint: Fall Stated Complaint: SYNCOPE Time Seen by Provider: 09/05/22 10:09 Mode of Arrival: EMS Source of Information: Patient and EMS Limitations: Dementia History of Present Illness HPI Narrative: The patient presents to the emergency department via ambulance. She had a near syncopal episode. She was found to be bradycardic. She was also vomiting. At this point the patient states that she feels well. She feels a little bit nauseous. She does not feel dizzy. She had a heart attack in 2013. She is on beta-blockers. Related Data Home Medications Medication Instructions Recorded Confirmed aspirin 81 mg tablet,delayed 81 mg PO DAILY Heart 08/27/17 03/10/22 release bisoprolol fumarate 5 mg tablet 5 mg PO DAILY blood pressure 08/27/17 03/10/22 rosuvastatin 20 mg tablet 20 mg PO HS Cholesterol 09/21/19 03/10/22 memantine 10 mg tablet 10 mg PO BID 05/06/21 03/10/22 pantoprazole 40 mg tablet,delayed 40 mg PO DAILY 09/09/21 03/10/22 release Previous Rx's Medication Instructions Recorded ondansetron HCl 4 mg tablet 4 mg PO Q6 PRN Nausea And Vomiting 12/17/19 3 days #12 tabs losartan 100 mg tablet 50 mg PO BID #30 tabs 09/17/21 Allergies Allergy/AdvReac Type Severity Reaction Status Date / Time oxycodone [OXYCODONE] Allergy Unknown I-RASH Verified 03/10/22 10:40 [facility] Disclaimer: The information contained in this section may have been updated after the patient was seen, as this information can be updated by other users. Medical History Abnormal electrocardiography Social History Smoking Status: Smoker, status unknown alcohol intake: never current occupational status: retired Travel in the last 8 weeks: Inside the [place] household members: spouse housing: house caffeine: Yes ROS Obtained: Yes unobtainable due to mental condition (Dementia) Physical Exam General General appearance: alert and in no apparent distress Head Head exam: atraumatic Eye Eye exam: Present normal appearance ENT ENT exam: Present normal exam Neck Neck exam: Present normal inspection and full ROM; Absent tenderness or meningismus Chest Chest inspection: Present normal inspection, symmetric chest wall rise and other (Well-healed bilateral scars from breast surgery.); Absent tenderness Respiratory Respiratory exam: Present normal lung sounds bilaterally; Absent respiratory distress or accessory muscle use Cardiovascular Cardiovascular exam: Present regular rate, normal rhyt
--- NOTE | 2022-09-05 10:15 | PC.NURSE ---
FS 125
--- NOTE | 2022-09-05 10:16 | XR_ITS ---
PROCEDURE INFORMATION: Exam: XR Chest Exam date and time: 09/05/2022 10:39 AM Age: 81 years old Clinical indication: Shortness of breath and other: Bradycardia TECHNIQUE: Imaging protocol: Radiologic exam of the chest. Views: 1 view. COMPARISON: CR XR CHEST PORTABLE 05/19/2021 11:16 AM FINDINGS: Lungs: No focal airspace disease. Pleural spaces: Unremarkable. No pleural effusion. No pneumothorax. Heart/Mediastinum: Cardiomediastinal silhouette is within normal limits. Bones/joints: Unremarkable. IMPRESSION: No acute cardiopulmonary abnormality.
[2022-09-05 10:24] LABS: Chloride 106 mmol/L (98-107); Sodium 137 mmol/L (136-145)
[2022-09-05 10:25] LABS: Potassium 3.7 mmoL/L (3.5-5.1)
[2022-09-05 10:27] LABS: Alanine Aminotransferase 18 U/L (12-78); Albumin Level 3.6 g/dl (3.5-5.0); Albumin/Globulin Ratio 1.4 (1.1-1.8); Alkaline Phosphatase 90 U/L (38-126); Anion Gap 9.7 mEq/L (5-15); Aspartate Amino Transferase 24 U/L (14-36); Basophils # 0.1 K/mm3 (0-0.2); Basophils % 1.1 % (0.1-2.0); Bilirubin,Total 0.5 mg/dl (0.2-1.3); Blood Urea Nitrogen 13 mg/dl (7-17); Calcium 9.3 mg/dl (8.4-10.2); Carbon Dioxide 25 mmol/L (22.0-30.0); Creatinine Clearance Estimated 56 mL/min (50-200); Eosinophils # 0.1 K/mm3 (0.0-0.4); Eosinophils % 0.9 % (0.1-12.0); Estimated Glomerular Filt Rate 69 ml/min (>60); GFR (African American) 83 ML/MIN (>60); Globulin 2.6 g/dL (1.3-3.2); Glucose 127 mg/dl (74-100); Hematocrit 43.2 % (37.0-47.0); Hemoglobin 13.6 g/dL (12.2-16.2); Lipase 104 U/L (23-300); Lymphocytes # 2.9 K/mm3 (0.7-4.5); Lymphocytes % 33.6 % (10-50); Mean Corpuscular HGB Conc 31.4 g/dL (31.8-35.4); Mean Corpuscular Hemoglobin 27.4 pg (27.0-31.2); Mean Corpuscular Volume 87.2 fl (81-99); Mean Platelet Volume 7.8 fl (7.4-10.4); Monocytes # 0.6 K/mm3 (0.1-1.0); Neutrophils # 4.9 K/mm3 (1.8-7.8); Neutrophils % 57.4 % (37.0-80.0); Platelet Count 277 K/mm3 (142-424); Red Blood Count 4.95 M/mm3 (4.20-5.40); Red Cell Distribution Width 15.1 % (11.5-17.5); Total Protein,Serum 6.2 g/dl (6.3-8.2); White Blood Count 8.5 K/mm3 (4.8-10.8)
--- NOTE | 2022-09-05 10:27 | PC.NURSE ---
Attempted to urinate on bedside commode. Unsuccessful. Patient clothing removed and assisted into gown. Incontinence noted. at bedside and updated on plan of care.
[2022-09-05 10:41] LABS: Troponin I < 0.01 ng/ml (0.00-0.034)
--- NOTE | 2022-09-05 10:42 | PC.NURSE ---
Allergy and fall bracelet placed on patient; call light within reach.
--- NOTE | 2022-09-05 11:02 | PC.NURSE ---
Addendum entered by Sarah Mascorro CNA 09/05/22 11:10: MD and RN notified of episode. Original Note: Patient's came out of room stating she felt like she was going to throw up. When I went into the room patient stated she needed to use the bathroom. I assisted patient up onto the bedside commode. Trell crop setting out machine operator @ giving zofran when patient stated she didn't feel right. Patient had a vagal episode. [employer] and I got patient back into bed. Call light within reach. Informed the patient if she felt like that again to press the call priest and we would be right in and to not get up unassisted.
--- NOTE | 2022-09-05 11:04 | PC.NURSE ---
pt got up to bedside commode pt became very pale had near syncopal episode , pt became very hypotensive , pt back in bed pressures came back back up , NS bolus given
[2022-09-05 11:08] LABS: Coronavirus 19, PCR Not Detected (NotDetected); Influenza A, PCR Not Detected (NotDetected); Influenza B, PCR Not Detected (NotDetected)
--- NOTE | 2022-09-05 11:20 | PC.NURSE ---
MD asked about urine sample and in and out cath, no new orders at this time.
--- NOTE | 2022-09-05 11:58 | PC.NURSE ---
I&O cath performed. Sterile technique maintained. Pt tolerated well. at bedside.
[2022-09-05 12:00] LABS: Microscopic, Urine URINE MICROSCOPIC (MICROSCOPIC)
[2022-09-05 12:12] LABS: Appearance,Urine CLEAR (Clear); Blood, Urine Negative (Negative); Color,Urine YELLOW (Yellow); Glucose,Urine (UA) Negative (Negative); Ketones,Urine TRACE (Negative); Leukocyte Esterase,Urine Negative (Negative); Nitrate,Urine Negative (Negative); Protein,Urine 1+ (Negative); Specific Gravity, Urine >= 1.030 (1.005-1.030)
[2022-09-05 12:17] LABS: Bilirubin,Urine 1+ (Negative)
--- NOTE | 2022-09-05 12:19 | PC.NURSE ---
Rounded on patient; call light within reach
[2022-09-05 12:23] LABS: Bacteria,Urine Trace /lpf; Mucus,Urine Trace /lpf; Squamous Epithelial Cell,Urine Occasional #/hpf (0-5); WBC,Urine Occasional #/hpf (0-3)
--- NOTE | 2022-09-05 13:24 | PC.NURSE ---
Rounded on patient and family; call light within reach
--- NOTE | 2022-09-05 13:25 | PC.NURSE ---
Lab at bedside.
--- NOTE | 2022-09-05 13:47 | PC.NURSE ---
Daughter at bedside. MD notified for update for family. Patient ambulated down hallway independently, no distress noted. No further complaints. Pt assisted back into bed. Awaiting 3 hr troponin and plan for possible discharge.
[2022-09-05 13:57] LABS: Troponin I < 0.01 ng/ml (0.00-0.034)
== END 2022-09-05 14:44 | disposition home or self-care (01) ==
PROVIDERS: Emergency Provider Emergency Medicine
DX: R55 Syncope and collapse (principal); T44.7X5A Adverse effect of beta-adrenoreceptor antagonists, initial encounter
CPT/HCPCS: 36415; 71045; 80053; 81001; 83690; 84484; 85025; 93005; 96360; 96361; 96374; 99285; C9803; J2405; U0003; U0005

== ENCOUNTER 2022-11-21 11:12 | Emergency (ER) | payer MEDICARE, OTHER, SELFPAY ==
[2022-11-21 12:10] VITALS: BP 141/70; PULSE 64; RESP 18; TEMP 36.7; O2SAT 99; BMI 25.8
--- NOTE | 2022-11-21 12:58 | EXP.UTC ---
Discharge Plan Disposition Patient Disposition: Home, Self-Care Condition: Good Prescriptions Prescriptions: New benzonatate 100 mg capsule 100 mg PO TID PRN (Reason: cough) Qty: 30 0RF amoxicillin-pot clavulanate 875-125 mg Tablet 1 tab PO Q12H Qty: 14 0RF methylprednisolone [Medrol (Pérez)] 4 mg tablets,dose pack See Rx Instructions .Route .COMPLEX 6 Days Qty: 21 0RF Rx Instructions: taper pack; No Action pantoprazole 40 mg tablet,delayed release (DR/EC) 40 mg PO DAILY memantine 10 mg tablet 10 mg PO BID losartan 25 mg tablet 25 mg PO BID Qty: 60 5RF bisoprolol fumarate 5 mg tablet 2.5 mg PO DAILY Qty: 30 5RF aspirin 81 MG tablet,delayed release (DR/EC) 81 mg PO DAILY rosuvastatin 20 MG tablet 20 mg PO HS ondansetron HCl 4 MG tablet 4 mg PO Q6 PRN (Reason: Nausea And Vomiting) 3 Days Qty: 12 0RF Referrals Follow up/Referrals: Caden Mccormack MD [Primary Care Provider] - See instructions Activity Restrictions/Add. Instructions Additional Instructions/Restrictions: Start antibiotic today. Be sure to complete entire prescription even if feeling better Monitor temp. Tylenol every 4 hours as needed and / or ibuprofen every 6 hours as needed ( As long as your primary care physician has told you that it ok to take both. For fever/aches/pains ER if no less than 101 despite Tylenol or Motrin Humidifier/vaporizer or hot steamy shower Mucinex during the day for your cough and cough suppressant only at night. Be sure to drink lots of water. Insurance may not cover a prescriptions for mucinex. Might be cheaper to get 400mg tablets and take 2 tablet in the morning, mid-day and evening with lots of water. *Tessalon Perles will not cause drowsiness but use at bedtime to help stop cough so that you may get some rest. *Start steroid today. Helps with inflammation therefore, cough and wheezing. Follow directions on the package. Reviewed side effects. Patient reports taking them before. Follow up IMMEDIATELY for new or worsening of symptoms OR no noticeable improvement over the next 48-72 hours. 911 immediately for any life threatening symptoms such as chest pain or difficulty breathing Clinical Impressions Clinical Impression: Bronchitis Sinusitis Qualifiers: Sinusitis location: unspecified location Chronicity: unspecified Qualified Code(s): J32.9 - Chronic sinusitis, unspecified Instructions Patient Instructions: DI for Sinusitis, Sinusitis, Acute Bronchitis Discharge ED Provider: Laurie Roe [facility] HPI General Stated complaint: Cough congestion drainage Mode of Arrival: Ambulatory Source of Information: Patient Limitations: No Limitations Time Seen by Provider: 11/21/22 12:58 Description of Symptoms (Recalled from Triage Doc. by RN): PATIENT C/O COUGH AND CONGESTION X 2 DAYS HEENT Symptoms (Recalled from RN notes): Yes Resp Symptoms (Recalled from RN notes): Yes Skin Symptoms (Recalled from RN notes): No MS Symptoms (Recalled from RN notes): No Functional Status (Recalled from RN notes): WNL History of Present Illness Provider Complaint: Patient states that since Tuesday she has been having sinus congestion and drainage and about 2 days ago started with cough and feels like it is trying to move into her chest area so she came in to get it checked Related Data Home Medications Medication Instructions Recorded Confirmed aspirin 81 mg tablet,delayed 81 mg PO DAILY Heart 08/27/17 10/12/22 release rosuvastatin 20 mg tablet 20 mg PO HS Cholesterol 09/21/19 10/12/22 memantine 10 mg tablet 10 mg PO BID 05/06/21 10/12/22 pantoprazole 40 mg tablet,delayed 40 mg PO DAILY 09/09/21 10/12/22 release Previous Rx's Medication Instructions Recorded ondansetron HCl 4 mg tablet 4 mg PO Q6 PRN Nausea And Vomiting 12/17/19 3 days #12 tabs bisoprolol fumarate 5 mg tablet 2.5 mg
[2022-11-21 13:01] VITALS: BP 141/70; PULSE 64; RESP 18; TEMP 36.7; O2SAT 99
== END 2022-11-21 13:08 | disposition home or self-care (01) ==
PROVIDERS: Emergency Provider Nurse Practitioner; PCP Internal Medicine
DX: J20.9 Acute bronchitis, unspecified (principal); J01.90 Acute sinusitis, unspecified
CPT/HCPCS: 99204; 99212; G0463

== ENCOUNTER → 2022-11-26 13:19 | Outpatient (CLI) | payer MEDICARE, OTHER, SELFPAY ==
[2022-11-26 14:17] LABS: Basophils % 0.5 % (0.1-2.0); Eosinophils % 0.4 % (0.1-12.0); Hematocrit 43.6 % (37.0-47.0); Hemoglobin 13.5 g/dL (12.2-16.2); Lymphocytes # 1.8 K/mm3 (0.7-4.5); Lymphocytes % 19.9 % (10-50); Mean Corpuscular Hemoglobin 27.2 pg (27.0-31.2); Mean Corpuscular Volume 87.7 fl (81-99); Monocytes # 0.7 K/mm3 (0.1-1.0); Monocytes % 8.1 % (1.7-9.3); Neutrophils # 6.3 K/mm3 (1.8-7.8); Neutrophils % 71.1 % (37.0-80.0); Platelet Count 299 K/mm3 (142-424); Red Blood Count 4.97 M/mm3 (4.20-5.40); Red Cell Distribution Width 15.2 % (11.5-17.5); White Blood Count 8.9 K/mm3 (4.8-10.8)
[2022-11-26 14:48] LABS: Alanine Aminotransferase 15 U/L (12-78); Albumin Level 3.5 g/dl (3.5-5.0); Albumin/Globulin Ratio 1.5 (1.1-1.8); Alkaline Phosphatase 90 U/L (38-126); Anion Gap 8.7 mEq/L (5-15); Aspartate Amino Transferase 18 U/L (14-36); Bilirubin,Total 0.4 mg/dl (0.2-1.3); Blood Urea Nitrogen 17 mg/dl (7-17); Calcium 9.5 mg/dl (8.4-10.2); Carbon Dioxide 28 mmol/L (22.0-30.0); Chloride 105 mmol/L (98-107); Chol/HDL Ratio 4.3 (1-3.5); Cholesterol 171 mg/dl (140-200); Estimated Glomerular Filt Rate 80 ml/min (>60); GFR (African American) 97 ML/MIN (>60); Globulin 2.4 g/dL (1.3-3.2); Glucose 83 mg/dl (74-100); HDL Cholesterol 40 mg/dl (40-60); Potassium 4.7 mmoL/L (3.5-5.1); Sodium 137 mmol/L (136-145); Total Protein,Serum 5.9 g/dl (6.3-8.2); Triglycerides 144 mg/dl (30-150); VLDL Cholesterol 29 mg/dL (0-40)
[2022-11-26 15:39] LABS: Vitamin B12 273 pg/mL (239-931)
== END ==
PROVIDERS: PCP Internal Medicine; Visit Provider Internal Medicine
DX: I10 Essential (primary) hypertension (principal); I25.118 Atherosclerotic heart disease of native coronary artery with other forms of angina pectoris; E78.5 Hyperlipidemia, unspecified; K21.9 Gastro-esophageal reflux disease without esophagitis; G31.84 Mild cognitive impairment of uncertain or unknown etiology; M81.0 Age-related osteoporosis without current pathological fracture; Z85.3 Personal history of malignant neoplasm of breast
CPT/HCPCS: 80053; 80061; 82607; 85025

== ENCOUNTER 2023-10-13 14:04 | Emergency (ER) | payer MEDICARE, OTHER, SELFPAY ==
[2023-10-13 14:10] VITALS: BP 140/90; PULSE 57; RESP 19; TEMP 36.7; O2SAT 97; BMI 25.0
--- NOTE | 2023-10-13 14:13 | XR_ITS ---
FINAL REPORT CLINICAL HISTORY: fall, pain in right ribs COMPARISON: Chest x-ray 09/05/2022 FINDINGS: A single view of the chest with 3 views of the right ribs were obtained. There is no acute cardiopulmonary process. No pneumothorax is identified. A moderate hiatal hernia is noted. No displaced rib fracture identified. IMPRESSION: No acute process. Reviewed, Interpreted and Dictated by Colin Wright MD Transcribed by Sri Sargent Authenticated and [facility]
--- NOTE | 2023-10-13 14:26 | ED_ITS ---
Discharge Plan Disposition Patient Disposition: Home, Self-Care Condition: Good Prescriptions Prescriptions: New lidocaine 4 % adhesive patch,medicated 1 patch topical DAILY PRN (Reason: pain) Qty: 10 0RF Rx Instructions: apply patch leave on for 12 hours then remove for 12 hours No Action pantoprazole 40 mg tablet,delayed release (DR/EC) 40 mg PO DAILY memantine 10 mg tablet 10 mg PO BID losartan 25 mg tablet See Rx Instructions .ROUTE .COMPLEX Qty: 180 3RF Dose Instruction: TAKE ONE TABLET BY MOUTH TWICE DAILY Rx Instructions: TAKE ONE TABLET BY MOUTH TWICE DAILY bisoprolol fumarate 5 mg tablet See Rx Instructions .ROUTE .COMPLEX Qty: 90 3RF Dose Instruction: TAKE 1/2 TABLET BY MOUTH EVERY DAY FOR BLOOD PRESSURE Rx Instructions: TAKE 1/2 TABLET BY MOUTH EVERY DAY FOR BLOOD PRESSURE benzonatate 100 mg capsule 100 mg PO TID PRN (Reason: cough) Qty: 30 0RF amoxicillin-pot clavulanate 875-125 mg Tablet 1 tab PO Q12H Qty: 14 0RF methylprednisolone [Medrol (Pérez)] 4 mg tablets,dose pack See Rx Instructions .Route .COMPLEX 6 Days Qty: 21 0RF Rx Instructions: taper pack; aspirin 81 MG tablet,delayed release (DR/EC) 81 mg PO DAILY rosuvastatin 20 MG tablet 20 mg PO HS ondansetron HCl 4 MG tablet 4 mg PO Q6 PRN (Reason: Nausea And Vomiting) 3 Days Qty: 12 0RF Referrals Follow up/Referrals: Caden Mccormack MD [Primary Care Provider] - See instructions Activity Restrictions/Add. Instructions Additional Instructions/Restrictions: Over the counter Motrin and/or Tylenol which ever you can take Follow up with your Family Doctor Use topical patches as prescribed Straight to ER if life threatening symptoms Clinical Impressions Clinical Impression: Contusion of rib on right side Instructions Patient Instructions: DI for Rib Contusion, Lidocaine Transdermal Patch Discharge ED Provider: Laurie Roe [facility] General Stated complaint: AO- pain in chest/rib area Mode of Arrival: Ambulatory Source of Information: Patient and Parent(s) Limitations: No Limitations Time Seen by Provider: 10/13/23 14:26 Description of Symptoms (Recalled from Triage Doc. by RN): REPORTS THAT PATIENT [facility] WHEN SHE STUMBLED AND FELL FACE-FORWARD ONTO THE FLOOR. PATIENT C/O PAIN TO RIGHT RIB AREA. DENIES LOC. HEENT Symptoms (Recalled from RN notes): No Resp Symptoms (Recalled from RN notes): No Skin Symptoms (Recalled from RN notes): No MS Symptoms (Recalled from RN notes): Yes Functional Status (Recalled from RN notes): WNL History of Present Illness Provider Complaint: Patient states that she was at the [facility] when she tripped and fell on the floor States that she has been having pain in her right rib area that is worse with movement, deep breath and cough Denies any other injury Related Data Home Medications Medication Instructions Recorded Confirmed aspirin 81 mg tablet,delayed 81 mg PO DAILY Heart 08/27/17 10/12/22 release rosuvastatin 20 mg tablet 20 mg PO HS Cholesterol 09/21/19 10/12/22 memantine 10 mg tablet 10 mg PO BID 05/06/21 10/12/22 pantoprazole 40 mg tablet,delayed 40 mg PO DAILY 09/09/21 10/12/22 release Previous Rx's Medication Instructions Recorded ondansetron HCl 4 mg tablet 4 mg PO Q6 PRN Nausea And Vomiting 12/17/19 3 days #12 tabs amoxicillin 875 mg-potassium 1 tab PO Q12H #14 tabs 11/21/22 clavulanate 125 mg tablet benzonatate 100 mg capsule 100 mg PO TID PRN cough #30 caps 11/21/22 methylprednisolone 4 mg tablets in See Rx Instructions .Route 11/21/22 a dose pack (Medrol (Pérez)) .COMPLEX 6 days #21 tabs losartan 25 mg tablet See Rx Instructions .Route 08/29/23 .COMPLEX #180 tabs bisoprolol fumarate 5 mg tablet See Rx Instructions .Route 09/26/23 .COMPLEX #90 tabs lidocaine 4 % topical patch 1 patch topical DAILY PRN pain #10 10/13/23 ea Allergies Allergy/AdvReac Type Severity Reaction Status Date / Time oxycodone [OXYCODONE] Allergy Unknown I-RASH Verified 10/12/22 08:41 Worker's Comp Is this a Worker's Comp case?: No [facility] Disclaimer: The information contained in this section may have been updated after the patient was seen, as this information can be updated by other users. Medical History Abnormal electrocardiography Social History Smoking Status: Smoker, status unknown alcohol intake: never current occupational status: retired Travel in the last 8 weeks: [place] the [place] household members: spouse housing: house caffeine: Yes ROS Obtained: Yes All systems reviewed & no additional complaints except as documented and Yes Systems reviewed as appropriate & no additional complaints except as documented Constitutional Constitutional: Reports system reviewed and no additional complaints, except as documented and Reports as per HPI ENT Ears, Nose, Mouth, and Throat: Reports system reviewed and no additional complaints, except as documented and Reports as per HPI Cardiovascular Cardiovascular: Reports system reviewed and no additional complaints, except as documented and Reports as per HPI Respiratory Respiratory: Reports system reviewed and no additional complaints, except as documented and Reports as per HPI Gastrointestinal Gastrointestingal: Reports system reviewed and no additional complaints, except as documented and as per HPI Musculoskeletal Musculoskeletal: Reports system reviewed and no additional complaints, except as documented and Reports as per HPI Physical Exam General General appearance: alert and in no apparent distress Eye Eye exam: Present normal appearance, PERRL and EOMI Chest Chest inspection: Present tenderness Expanded Chest Exam Female Torso: 2 1. patient report pain with cough, deep breath after falling, no bruising, no swelling noted Respiratory Respiratory exam: Present normal lung sounds bilaterally; Absent respiratory distress or wheezes Cardiovascular Cardiovascular exam: Present regular rate, normal rhythm and normal heart sounds Abdominal Exam Abdominal exam: Present soft and normal bowel sounds; Absent distention or tenderness Neurological Exam Neurological exam: Present alert, oriented X3 and normal gait Medical Decision Making Be Inquiry Pt receiving controlled substance: No Be was queried for this patient: No Vital Signs: 10/13/23 14:10 Temperature 98.1 F Temperature Source Oral Pulse Rate [Left] 57 L Respiratory Rate 19 Blood Pressure [Left Arm] 140/90 Blood Pressure Mean [Left Arm] 106 Blood Pressure Source [Left Arm] Manual Cuff/ Auscultation Blood Pressure Position [Left Arm] Sitting 02 Sat by Pulse Oximetry 97 Oxygen Delivery Method Room Air Orders (Tests/Meds): ORDERS Category Date Time Status XR ribs RT min 3V w CXR1V Stat Exams 10/13/23 14:13 Ordered Radiology Data #1: Image(s): Chest (with right ribs) Image Reviewed: Yes I have reviewed radiologist's interpretation FINDINGS: A single view of the chest with 3 views of the right ribs were obtained. There is no acute cardiopulmonary process. No pneumothorax is identified. A moderate hiatal hernia is noted. No displaced rib fracture identified. IMPRESSION: No acute process.
[2023-10-13 15:35] VITALS: BP 140/90; PULSE 57; RESP 19; TEMP 36.7; O2SAT 97
== END 2023-10-13 15:39 | disposition home or self-care (01) ==
PROVIDERS: Emergency Provider Nurse Practitioner; PCP Internal Medicine
DX: S20.211A Contusion of right front wall of thorax, initial encounter (principal); W01.10XA Fall on same level from slipping, tripping and stumbling with subsequent striking against unspecified object, initial encounter
CPT/HCPCS: 71101; 99212; 99214; G0463

== ENCOUNTER 2023-10-19 08:47 | Emergency (ER) | payer MEDICARE, OTHER, SELFPAY ==
[2023-10-19] VITALS (11 sets, daily range): BP systolic 130–179; BP diastolic 70–93; PULSE 59–61; RESP 16–18; TEMP 36.6–36.7; O2SAT 86–97; BMI 29.8
--- NOTE | 2023-10-19 08:45 | ECG_ITS ---
APPROVED REPORT Exam: Resting ECG HR:58 bpm ECG Measurements Heart Rate 58 AXES AL 162 P 36 QRSd 92 QRS -10 QT 424 T 64 QTc 421 Conclusion SINUS BRADYCARDIA POSSIBLE RIGHT VENTRICULAR CONDUCTION DELAY [RSR (QR) IN V1/V2] Q waves in the anterior and inferior leads Electronically signed by : CAMDEN FULLER, 10/19/2023 21:43:43
--- NOTE | 2023-10-19 08:45 | PC.NURSE ---
DR HERNANDEZ AT BEDSIDE
--- NOTE | 2023-10-19 08:48 | XR_ITS ---
FINAL REPORT CLINICAL HISTORY: syncope COMPARISON: 09/05/2022 FINDINGS: A single portable view of the chest was obtained. The heart size is enlarged. The pulmonary vascularity is within normal limits. The mediastinum is within normal limits. There are mild bibasilar opacities which are favored to represent atelectasis. The bony thorax is intact. IMPRESSION: Mild bibasilar opacities favor atelectasis. Reviewed, Interpreted and Dictated by Leeroy Hughes III, MD Transcribed by Sri Sargent Authenticated and [facility]
[2023-10-19 08:57] LABS: Basophils # 0.1 K/mm3 (0-0.2); Basophils % 1.3 % (0.1-2.0); Eosinophils # 0.1 K/mm3 (0.0-0.4); Eosinophils % 0.5 % (0.1-12.0); Hematocrit 48.5 % (37.0-47.0); Hemoglobin 15.7 g/dL (12.2-16.2); Lymphocytes # 3.6 K/mm3 (0.7-4.5); Lymphocytes % 35.4 % (10-50); Mean Corpuscular HGB Conc 32.3 g/dL (31.8-35.4); Mean Corpuscular Hemoglobin 28.8 pg (27.0-31.2); Mean Corpuscular Volume 89.1 fl (81-99); Mean Platelet Volume 8.5 fl (7.4-10.4); Monocytes # 0.6 K/mm3 (0.1-1.0); Monocytes % 6.2 % (1.7-9.3); Neutrophils # 5.7 K/mm3 (1.8-7.8); Neutrophils % 56.5 % (37.0-80.0); Platelet Count 389 K/mm3 (142-424); Red Blood Count 5.44 M/mm3 (4.20-5.40); Red Cell Distribution Width 15.5 % (11.5-17.5); White Blood Count 10.1 K/mm3 (4.8-10.8)
--- NOTE | 2023-10-19 09:01 | PC.NURSE ---
XR AT BEDSIDE
[2023-10-19 09:02] LABS: Chloride 104 mmol/L (98-107); Potassium 4.2 mmoL/L (3.5-5.1); Sodium 136 mmol/L (136-145)
--- NOTE | 2023-10-19 09:03 | CT_ITS ---
FINAL REPORT TECHNIQUE: Thin section axial CT with IV contrast supplemented with multiplanar reconstruction under CT angiogram protocol. 3-D reconstructions were performed. This study was performed with techniques to keep radiation doses as low as reasonably achievable (ALARA). Individualized dose reduction techniques using automated exposure control or adjustment of mA and/or kV according to the patient''s size were employed. CLINICAL HISTORY: syncope, ams FINDINGS: No aneurysm is seen. Major intracranial vessels are patent without significant stenosis. IMPRESSION: No evidence of aneurysm or major branch occlusion. Reviewed, Interpreted and Dictated by Leeroy Hughes III, MD Transcribed by Martina Gardner Authenticated and [facility]
--- NOTE | 2023-10-19 09:03 | CT_ITS ---
FINAL REPORT CLINICAL HISTORY: fall, facial trauma FINDINGS: Axial images of the head were obtained without contrast. Coronal reformatted images were also obtained. This study was performed with techniques to keep radiation doses as low as reasonably achievable (ALARA). Individualized dose reduction techniques using automated exposure control or adjustment of mA and/or kV according to the patient''s size were employed. There is generalized age-appropriate atrophy. Periventricular low-attenuation areas are seen consistent with mild chronic ischemic changes. There is no evidence of intracranial hemorrhage or mass. There is no evidence of acute infarct. There is no evidence of shift of the midline structures. No skull abnormality is seen on the bone window images. There is mucosal thickening in multiple sinuses. IMPRESSION: Atrophy and mild periventricular chronic ischemic changes. No acute intracranial abnormality identified. Reviewed, Interpreted and Dictated by Leeroy Hughes III, MD Transcribed by Martina Gardner Authenticated and [facility]
--- NOTE | 2023-10-19 09:03 | CT_ITS ---
FINAL REPORT TECHNIQUE: Thin section axial CT with IV contrast supplemented with multiplanar reconstruction under CT angiogram protocol. This study was performed with techniques to keep radiation doses as low as reasonably achievable (ALARA). Individualized dose reduction techniques using automated exposure control or adjustment of mA and/or kV according to the patient''s size were employed. NASCET criteria was utilized during interpretation. CLINICAL HISTORY: syncope, ams FINDINGS: Aortic arch: Arch shows no significant narrowing. Great vessel origins are widely patent. Right carotid: There is calcified plaque at the right carotid bifurcation without significant stenosis. The ICA is patent without significant stenosis. Left carotid: No significant stenosis is seen of the cervical common or internal carotid artery. Vertebral: Left vertebral artery is dominant. The right vertebral artery is hypoplastic. No significant stenosis is present. IMPRESSION: No evidence of significant stenosis. Reviewed, Interpreted and Dictated by Leeroy Hughes III, MD Transcribed by Martina Gardner Authenticated and [facility]
--- NOTE | 2023-10-19 09:03 | PC.NURSE ---
portable xray at bedside
[2023-10-19 09:04] LABS: Blood Urea Nitrogen 18 mg/dl (7-17); Creatinine Clearance Estimated 56 mL/min (50-200); Estimated Glomerular Filt Rate 80 ml/min (>60); GFR (African American) 97 ML/MIN (>60)
[2023-10-19 09:05] LABS: Alanine Aminotransferase 21 U/L (12-78); Albumin Level 3.7 g/dl (3.5-5.0); Albumin/Globulin Ratio 1.3 (1.1-1.8); Alkaline Phosphatase 78 U/L (38-126); Anion Gap 10.2 mEq/L (5-15); Aspartate Amino Transferase 35 U/L (14-36); Bilirubin,Total 0.6 mg/dl (0.2-1.3); Calcium 9.8 mg/dl (8.4-10.2); Carbon Dioxide 26 mmol/L (22.0-30.0); Globulin 2.8 g/dL (1.3-3.2); Glucose 110 mg/dl (74-100); Total Protein,Serum 6.5 g/dl (6.3-8.2)
[2023-10-19 09:15] LABS: NT Pro Brain Natriuretic Pep. 336 pg/mL (0-450)
--- NOTE | 2023-10-19 09:15 | PC.NURSE ---
DR HERNANDEZ AT BEDSIDE TO UPDATE FAMILY AND PT
--- NOTE | 2023-10-19 09:23 | HMH.EDGENADL ---
Discharge Plan Disposition Patient Disposition: Home, Self-Care Chief Complaint: Altered Mental Status Prescriptions Prescriptions: No Action pantoprazole 40 mg tablet,delayed release (DR/EC) 40 mg PO DAILY memantine 10 mg tablet 10 mg PO BID losartan 25 mg tablet See Rx Instructions .ROUTE .COMPLEX Qty: 180 3RF Dose Instruction: TAKE ONE TABLET BY MOUTH TWICE DAILY Rx Instructions: TAKE ONE TABLET BY MOUTH TWICE DAILY bisoprolol fumarate 5 mg tablet See Rx Instructions .ROUTE .COMPLEX Qty: 90 3RF Dose Instruction: TAKE 1/2 TABLET BY MOUTH EVERY DAY FOR BLOOD PRESSURE Rx Instructions: TAKE 1/2 TABLET BY MOUTH EVERY DAY FOR BLOOD PRESSURE aspirin 81 MG tablet,delayed release (DR/EC) 81 mg PO DAILY rosuvastatin 20 MG tablet 20 mg PO HS Referrals Follow up/Referrals: Estiven Valerio MD [Staff Physician] - See instructions Activity Restrictions/Add. Instructions Additional Instructions/Restrictions: Follow-up with Dr. Valerio's team on an outpatient basis for further cardiac and event monitoring. Call your family doctor to establish care for this visit to the emergency department and schedule follow-up within 48 hours to ensure improvement. If you have any worsening of your condition or any other concerning signs or symptoms, return to the emergency department or your primary care doctor for further evaluation. Clinical Impressions Clinical Impression: Acute alteration in mental status, Transient neurological symptoms Instructions Patient Instructions: DI for Altered Mental Status Discharge ED Provider: Catracho Yang General Adult HPI General Chief complaint: Altered Mental Status Stated complaint: Near Syncopal episodes Time Seen by Provider: 10/19/23 08:55 Mode of Arrival: Ambulatory Source of Information: Patient and EMS Limitations: No Limitations Description of Symptoms (Recalled from ER Triage Doc. by RN): brought in by ems for stroke like symptoms, told ems her eyes rolled back in the back of her head and she was unable to answer questions, pt was diaphoretic and had a bs of 127 per ems, hx TBI and dementia, pt is unable to answer very many questions on arrival to our facility, states she has chest pain in the R side of her chest but unable to tell when it started then asked about it 5 minutes later she denies any pain, NIH scale was negative, ems stated pt was here last week for a fall History of Present Illness HPI narrative: Please note that above description of symptoms, in this electronic medical record under categorization of recalled from ER triage doctor by RN are reflective of an initial nursing assessment, however, is not reflective of my full history and physical exam that was personally taken and clarified. Consequentially, this preceding description of symptoms, which may include the patient's categorized chief complaint in the EMR, do not reflect my personal clinical impression, and the ultimate description of history of present illness and patient stated complaints should be deferred to this section of the note. Unless stated otherwise or congruent with this section of the note, additional signs, symptoms, or incongruence should be interpreted as inaccurate with my clinical impression. Related Data Home Medications Medication Instructions Recorded Confirmed aspirin 81 mg tablet,delayed 81 mg PO DAILY Heart 08/27/17 10/19/23 release rosuvastatin 20 mg tablet 20 mg PO HS Cholesterol 09/21/19 10/19/23 memantine 10 mg tablet 10 mg PO BID 05/06/21 10/19/23 pantoprazole 40 mg tablet,delayed 40 mg PO DAILY 09/09/21 10/19/23 release Previous Rx's Medication Instructions Recorded losartan 25 mg tablet See Rx Instructions .Route 08/29/23 .COMPLEX #180 tabs bisoprolol fumarate 5 mg tablet See Rx Instructions .Route 09/26/23 .COMPLEX #90 tabs Allergies Allergy/AdvReac Type Severity Reaction Status Date / Time oxycodone [OXYCODONE] Allergy Unknown I-RASH Verified 10/19/23 08:54 [facility] Disclaimer: The information contained in this section may have been updated after the patient was seen, as this information can be updated by other users. Medical History (Updated 10/19/23 @ 12:30 by Catracho Yang MD) Dementia TBI (traumatic brain injury) Abnormal electrocardiography Social History Smoking Status: Never smoker alcohol intake: never current occupational status: retired Travel in the last 8 weeks: Inside the [place] household members: spouse housing: house caffeine: Yes ROS Obtained: Yes All systems reviewed & no additional complaints except as documented Physical Exam General General appearance: alert and in no apparent distress Head Head exam: atraumatic and normocephalic Eye Eye exam: Present normal appearance, PERRL and EOMI ENT ENT exam: Present mucous membranes moist Neck Neck exam: Present normal inspection, full ROM and trachea midline Respiratory Respiratory exam: Present normal lung sounds bilaterally; Absent respiratory distress, wheezes, stridor, accessory muscle use or prolonged expiratory phase Cardiovascular Cardiovascular exam: Present regular rate and normal rhythm Abdominal Exam Abdominal exam: Present soft; Absent distention, tenderness, guarding, rebound or rigidity Extremities Exam Extremities exam: Absent edema Neurological Exam Neurological exam: Present alert, CN II-XII intact and normal gait; Absent oriented X3 (Oriented only to person) or motor sensory deficit Skin Skin exam: Present warm and dry; Absent diaphoresis or erythema Medical Decision Making Medical Records Medical records reviewed: Yes I reviewed the patient's medical records. Be Inquiry Pt receiving controlled substance: No Be was queried for this patient: No Vital Signs: 10/19/23 08:45 10/19/23 09:00 10/19/23 09:30 Temperature 97.9 F Temperature Source Oral Pulse Rate 59 L 59 L Pulse Rate [Left Radial] 60 Respiratory Rate 18 Blood Pressure 130/70 173/74 H Blood Pressure [Right Arm] 152/74 H Blood Pressure Mean [Right Arm] 100 Blood Pressure Source [Right Arm] Automatic Cuff Blood Pressure Position [Right Arm] Sitting 02 Sat by Pulse Oximetry 93 L 86 L 97 Oxygen Delivery Method Room Air 10/19/23 10:01 10/19/23 10:30 10/19/23 11:00 Temperature Temperature Source Pulse Rate 60 59 L 59 L Pulse Rate [Left Radial] Respiratory Rate Blood Pressure 171/85 H 152/81 H 151/74 H Blood Pressure [Right Arm] Blood Pressure Mean [Right Arm] Blood Pressure Source [Right Arm] Blood Pressure Position [Right Arm] 02 Sat by Pulse Oximetry 95 97 96 Oxygen Delivery Method 10/19/23 11:30 10/19/23 12:00 Temperature Temperature Source Pulse Rate 60 59 L Pulse Rate [Left Radial] Respiratory Rate Blood Pressure 157/74 H 164/88 H Blood Pressure [Right Arm] Blood Pressure Mean [Right Arm] Blood Pressure Source [Right Arm] Blood Pressure Position [Right Arm] 02 Sat by Pulse Oximetry 96 97 Oxygen Delivery Method Lab Data Lab Results 10/19/23 08:38: WBC 10.1, RBC 5.44 H, Hgb 15.7, Hct 48.5 H, MCV 89.1, MCH 28.8, MCHC 32.3, RDW 15.5, Plt Count 389, MPV 8.5, Neut % (Auto) 56.5, Lymph % (Auto) 35.4, [place] % (Auto) 6.2, Eos % (Auto) 0.5, Baso % (Auto) 1.3, Neut # (Auto) 5.7, Lymph # (Auto) 3.6, Gonzales # (Auto) 0.6, Eos # (Auto) 0.1, Baso # (Auto) 0.1, Sodium 136, Potassium 4.2, Chloride 104, Carbon Dioxide 26, Anion Gap 10.2, BUN 18 H, Creatinine 0.70, Estimated Creat Clear 56, Estimated GFR 80, Est GFR ( Amer) 97, Glucose 110 H, Calcium 9.8, Magnesium 2.1, Total Bilirubin 0.6, AST 35, ALT 21, Alkaline Phosphatase 78, Troponin I < 0.01, NT-Pro-B Natriuret Pep 336, Total Protein 6.5, Albumin 3.7, Globulin 2.8, Albumin/Globulin Ratio 1.3 10/19/23 09:30: Urine Color Yellow, Urine Appearance Clear, Urine pH 6.0, Ur Specific [place] 1.020, Urine Protein Negative, Urine Glucose (UA) Negative, Urine Ketones Negative, Urine Blood Negative, Urine Nitrate Negative, Urine Bilirubin Negative, Urine Urobilinogen 1.0, Ur Leukocyte Esterase Negative, Urine RBC None, Urine WBC Occasional, Ur Squamous Epith Cells Occasional, Urine Bacteria Trace 10/19/23 09:35: Lactate 1.9 10/19/23 11:50: Troponin I < 0.01 10/19/23 08:38 10/19/23 08:38 Orders (Tests/Meds): ED MEDICATIONS Discontinued Medications Generic Name Dose Route Start Last Admin Trade Name Dutchq PRN Reason Stop Dose Admin Iopamidol 100 ml 10/19/23 09:49 10/19/23 09:50 Iopamidol-370 (76%);100ml Bottle IV 10/19/23 09:50 100 ml ONCE ONE Administration Sodium Chloride 50 ml 10/19/23 09:49 10/19/23 09:50 0.9 % Sodium Chloride 50 Ml Vial IV 10/19/23 09:50 50 ml ONCE ONE Administration Sodium Chloride 10 ml 10/19/23 09:49 10/19/23 09:50 Sodium Chloride 0.9% 10ml Syr (Rad Only) IV 06/05/24 09:50 10 ml ONCE ONE Administration ORDERS Category Date Time Status CT angio head Stat Cat Scan 10/19/23 09:[address] angio neck Stat Cat Scan 10/19/23 09:[address] head/brain wo con Stat Cat Scan 10/19/23 09:03 Taken CXR --portable [XR chest portable] Stat Exams 10/19/23 08:48 Taken CBC w/Auto Diff [Complete Blood Count Auto Diff] Stat Lab 10/19/23 08:38 Completed CMP [Comprehensive Metabolic Panel] Stat Lab 10/19/23 08:38 Completed Lactic Acid Stat Lab 10/19/23 09:35 Completed Magnesium Stat Lab 10/19/23 08:38 Completed NT Pro Brain Natriuretic Pep. Stat Lab 10/19/23 08:38 Completed Trop I [Troponin I] Stat Lab 10/19/23 08:38 Completed Troponin I Q3H Lab 10/19/23 11:50 Completed Troponin I Q3H Lab 10/19/23 15:00 Ordered UA [Urinalysis and Microscopic] Stat Lab 10/19/23 09:30 Completed ECG holter initial pfn Routine Y 10/19/23 Completed HEART Score History (anamnesis): Slightly suspicious ECG: Normal Age: >65 years Risk factors: 3 or more risk factors Troponin: </= normal limit HEART Score: 4 Medical Decision Narrative: 82-year-old female history of hypertension, hyperlipidemia, CAD status post stenting, traumatic subarachnoid hemorrhage and skull fracture, dementia still living at home with presenting with concern for altered mental status. Per family, patient had 2 episodes today that were witnessed. They were about 20 minutes apart. describes them as patient sitting at the breakfast table, started moaning, leaned her head back, close her eyes. He states that during this time he felt that she may have even stop breathing for short period of time, but sat with her head back for about 15 or 20 minutes. Before opening her eyes and returning to baseline, patient had another one of the episodes where she leaned her head forward, groaned, then leaned her head back again and was minimally responsive. No complaints of chest pain, shortness of breath, vomiting, syncope, collapse, or any other concerns. EMS was contacted at that time, by the time EMS got there, she was just about back to her baseline, per patient family and EMS. On arrival, patient without any complaints. At baseline, per family who arrived shortly afterward. History was obtained via conversation with patient and family. On arrival, patient hemodynamically stable, alert, oriented to person [appropriate, ]GCS [15], moving all extremities spontaneously, pupils equal and reactive to light. Full physical exam performed and significant for chronically ill-appearing woman who is in no acute distress and very well-appearing. Following commands without issue. Neurologic exam including cranial nerve, cerebellar, motor and sensory exams within normal limits. Cardiac exam within normal limits. Differential includes CVA, infection, arrhythmia, metabolic abnormality, ACS, UT, vasovagal, among others. Patient was given fluids for symptomatic management[ and correction of underlying abnormalities]. Workup independently interpreted and significant for nonactionable CBC or chemistry, troponin negative, BNP negative, urinalysis without concern for UTI, chest x-ray without acute concern for cardiopulmonary airspace disease. CT head without acute hemorrhage, CTA head and neck without acute intracranial stenosis or extracranial stenosis. See radiology read for full review of final results. [Independent interpretation of EKG shows] sinus bradycardia 58 beats a minute no ST or T wave changes concerning for acute ischemia. FL, QRS, QT intervals within normal limits. Heart score 4. Patient was placed in observation beginning at 9 AM in order to rule out evolving UT with delta troponins and determine need for admission versus home-going. The patient was provided serial exams, monitoring, CT scan while awaiting results. Independent interpretation of results demonstrated negative delta troponin. On reevaluation, patient resting comfortably in bed and at baseline. At this time, I feel patient is appropriate for discharge. Total observation time 3 hours. Event monitor ordered for patient and recommend she follow-up with cardiology in outpatient setting for interpretation. Voiced their understanding. Because patient at baseline without signs or symptoms of clinical decompensation, deemed appropriate for discharge. Results were relayed to patient family who voiced understanding and were agreeable to outpatient management and follow up. I discussed my clinical impression with patient family and answered all questions. At this time, the evidence for any other entities in the differential is insufficient to warrant any further testing or ED observation. This was explained as well. Advisory was given that persistent or worsening symptoms require further evaluation. I confirmed the understanding of this discussion. Guest Relations Coordinator disclaimer Much of this encounter note is an electronic turbine operator spoken language to printed text. Electronic turbine operator of the spoken language may permit errors. Although I have reviewed the note, some errors may still exist. Critical Care Critical Care Time Critical Care Time: No
[2023-10-19 09:24] LABS: Troponin I < 0.01 ng/ml (0.00-0.034)
[2023-10-19 09:34] LABS: Magnesium 2.1 mg/dl (1.6-2.3)
[2023-10-19 09:35] LABS: Microscopic, Urine URINE MICROSCOPIC (MICROSCOPIC)
--- NOTE | 2023-10-19 09:42 | PC.NURSE ---
Pt taken for CT scan.
[2023-10-19 09:47] LABS: Appearance,Urine CLEAR (Clear); Bilirubin,Urine Negative (Negative); Blood, Urine Negative (Negative); Color,Urine YELLOW (Yellow); Glucose,Urine (UA) Negative (Negative); Ketones,Urine Negative (Negative); Leukocyte Esterase,Urine Negative (Negative); Nitrate,Urine Negative (Negative); Protein,Urine Negative (Negative)
[2023-10-19] MEDS: 0.9 % SODIUM CHLORIDE 50 ML VIAL IV (09:50)
[2023-10-19] MEDS: SODIUM CHLORIDE 0.9% 10ML SYR (RAD ONLY) 10 ML IV (09:50)
[2023-10-19] MEDS: IOPAMIDOL-370 (76%);100ML BOTTLE 100 ML IV (09:50)
[2023-10-19 09:51] LABS: Lactic Acid 1.9 mmol/L (0.7-2.1)
[2023-10-19 10:10] LABS: Bacteria,Urine Trace /lpf; Squamous Epithelial Cell,Urine Occasional #/hpf (0-5); WBC,Urine Occasional #/hpf (0-3)
--- NOTE | 2023-10-19 10:59 | PC.NURSE ---
pt resting in bed. family at bedside. updated pt. no questions or concerns voiced. bed in lowest position. call light within reach.
--- NOTE | 2023-10-19 11:16 | PC.NURSE ---
DR HERNANDEZ AT BEDSIDE TO UPDATE PT AND FAMILY
--- NOTE | 2023-10-19 11:50 | PC.NURSE ---
RESPIRATORY AT BEDSIDE, HOLTER APPLIED
[2023-10-19 12:23] LABS: Troponin I < 0.01 ng/ml (0.00-0.034)
[2023-10-19] MEDS: FLUCONAZOLE 200MG TABLET 200 MG PO (12:40)
== END 2023-10-19 13:14 | disposition home or self-care (01) ==
PROVIDERS: Emergency Provider Emergency Medicine; PCP Internal Medicine
DX: R41.82 Altered mental status, unspecified (principal); R29.818 Other symptoms and signs involving the nervous system; R00.1 Bradycardia, unspecified; F03.90 Unspecified dementia, unspecified severity, without behavioral disturbance, psychotic disturbance, mood disturbance, and anxiety
CPT/HCPCS: 70450; 70496; 70498; 71045; 80053; 81001; 83605; 83735; 83880; 84484; 85025; 93005; 93225; 93227; 99285; Q9967

== ENCOUNTER 2023-11-02 14:22 | Outpatient (CLI) | payer MEDICARE, OTHER, SELFPAY | END 2023-11-02 23:59 | disposition home or self-care (01) | LOC: RT 14:23 | PROVIDERS: PCP Internal Medicine; Visit Provider Internal Medicine | DX: R00.2 Palpitations (principal); I47.10 Supraventricular tachycardia, unspecified; R94.31 Abnormal electrocardiogram [ECG] [EKG]; E78.5 Hyperlipidemia, unspecified; I25.10 Atherosclerotic heart disease of native coronary artery without angina pectoris; Z95.5 Presence of coronary angioplasty implant and graft; I10 Essential (primary) hypertension | CPT/HCPCS: 93270 ==

== ENCOUNTER 2023-11-07 13:34 | Outpatient (CLI) | payer MEDICARE, OTHER, SELFPAY ==
--- NOTE | 2023-11-07 13:34 | CA_ITS ---
APPROVED REPORT EXAM: Comprehensive 2D, Doppler, and color-flow Echocardiogram Inspector Elevators: Taylor Hanks RDCS Ht: 5 ft 2 in Wt: 161lbs BSA: 1.74 BP: 155/95 mmHg Indications: TACHYCARDIA,SVT,CAD,ABN EKG M-Mode Dimensions RVDd 2.96 cm (0.9-2.6) LA Diam 3.37 cm (1.9-4.0) LVDd 4.21 cm (3.5-5.7) LVDs 2.53 cm (3.5-5.7) IVSd 1.00 cm (0.6-1.1) PWd 0.89 cm (0.6-1.1) EF (Teich) 70.90% FS 39.90% EDV (Teich) 79.00 mL ESV (Teich) 23.00 mL LV Diastology E Decel Time 237 (160-240 msec) E/A Ratio 0.6 Mitral Valve MV E Max John Paul. 66.0 (40-130 cm/s) MV A Velocity 102.0 (40-130 cm/s) E/A Ratio 0.64 MV PHT 69.0 ms Tricuspid Valve TR P. Velocity 245.00 cm/s RAP Estimate 10.00 mmHg RVSP 34.10 mmHg Left Ventricle The left ventricle is normal size. The left ventricular systolic function is normal. The left ventricular ejection fraction is within the normal range. There is increased LV wall thickness. There is normal LV segmental wall motion. Transmitral Doppler flow pattern suggests impaired LV relaxation. LVEF is 65%. Right Ventricle The right ventricle is normal size. The right ventricular systolic function is normal. Atria The left atrium is mildly dilated. The right atrium size is normal. There is no Doppler evidence of interatrial shunt. Aortic Valve The aortic valve is mildly thickened. There is no aortic valvular stenosis. Mild aortic regurgitation. Mitral Valve The mitral valve leaflets are mildly thickened. No evidence of mitral valve stenosis. Trace mitral regurgitation. Tricuspid Valve The tricuspid valve leaflets are thin and pliable. Mild tricuspid regurgitation. RVSP is 25-30 mmHg. Pulmonic Valve The pulmonary valve is normal in structure. Trace pulmonic regurgitation. Great Vessels The aortic root is normal in size. The ascending aorta is normal in size. IVC is normal in size and collapses >50% with inspiration. Pericardium There is no pericardial effusion. Other Information Study Quality: Fair Conclusion Normal biventricular systolic function. Mild AI, mild TR. Electronically signed by : Rupinder Barroso MD 11/12/2023 21:06:12
== END 2023-11-07 23:59 | disposition home or self-care (01) ==
LOC: RT 13:34
PROVIDERS: PCP Internal Medicine; Visit Provider Internal Medicine
DX: I47.10 Supraventricular tachycardia, unspecified (principal); R94.31 Abnormal electrocardiogram [ECG] [EKG]; I11.9 Hypertensive heart disease without heart failure; I25.10 Atherosclerotic heart disease of native coronary artery without angina pectoris; Z95.5 Presence of coronary angioplasty implant and graft; E78.5 Hyperlipidemia, unspecified
CPT/HCPCS: 93306

== ENCOUNTER 2023-12-20 05:38 | Observation (INO) | payer MEDICARE, OTHER, SELFPAY ==
[2023-12-20] VITALS (20 sets, daily range): BP systolic 101–223; BP diastolic 10–137; PULSE 71–98; RESP 16–24; TEMP 36.4–37.4; O2SAT 91–97; BMI 29.2; BMI 29.4
--- NOTE | 2023-12-20 05:58 | PC.NURSE ---
Pt boosted in bed and provided yonker with suction
--- NOTE | 2023-12-20 06:00 | CT_ITS ---
FINAL REPORT CLINICAL HISTORY: GI bleed COMPARISON: None FINDINGS: Thin section axial CT images of the chest were obtained with contrast. 3D reformatted images were also obtained. This study was performed with techniques to keep radiation doses as low as reasonably achievable (ALARA). Individualized dose reduction techniques using automated exposure control or adjustment of mA and/or kV according to the patient''s size were employed. There is motion on many sequences which somewhat limits overall image quality. There is no evidence of pulmonary embolism. There is no evidence of thoracic aortic aneurysm or dissection. There is a large hiatal hernia present. The esophagus is distended and fluid-filled with associated wall thickening. There is soft tissue density in the upper stomach, that may represent postoperative change or a mass. There is no evidence of hilar mass or adenopathy. There is no evidence of pulmonary mass or nodule. No localized inflammatory process is seen within the lungs. Mild atelectasis is noted bilaterally. Limited images of the upper abdomen are unremarkable. IMPRESSION: No evidence of pulmonary embolism. Large hiatal hernia, with a distended and fluid-filled esophagus with wall thickening. There is also soft tissue in the upper stomach, that may represent postoperative change or an underlying mass. Recommend endoscopy for further evaluation. Reviewed, Interpreted and Dictated by Leeroy Hughes III, MD Transcribed by Liat Maravilla Authenticated and [facility]
--- NOTE | 2023-12-20 06:00 | CT_ITS ---
FINAL REPORT TECHNIQUE: Pre-and postcontrast images of the abdomen and pelvis were performed by computed tomography. Extensive 3-D reconstruction images were performed. A CTA was performed. This study was performed with techniques to keep radiation doses as low as reasonably achievable (ALARA). Individualized dose reduction techniques using automated exposure control or adjustment of mA and/or kV according to the patient's size were employed. CLINICAL HISTORY: gi bleed COMPARISON: None FINDINGS: ABDOMEN AND PELVIS: Mild atelectasis is present in the lower lung clarke. Precontrast images demonstrate no evidence of nephrolithiasis. There are several less than 1 cm in size low-attenuation masses present in the kidneys bilaterally, which cannot be accurately characterized on this examination, but likely represent renal cysts. No follow-up is recommended at this time. No adrenal masses are identified. The liver, spleen and pancreas are unremarkable. As noted on the chest CTA of the same date, a large hiatal hernia is present with the esophagus distended and fluid-filled. There is a suggestion of a soft tissue mass in the upper stomach that may represent postoperative change or underlying mass. The gallbladder has been surgically resected. There is severe descending and sigmoid diverticulosis present. No acute inflammatory changes identified. There is no contrast extravasation to suggest acute hemorrhage. The patient has undergone a prior left hip arthroplasty. CTA: The abdominal aorta is proper caliber. The SMA, celiac axis, and GEOVANNA are patent. There is no significant stenosis or calcification. The renal arteries are patent bilaterally. The common, internal, and external iliac arteries do not reveal any evidence of stenosis. IMPRESSION: No extravasation of contrast is identified to suggest acute hemorrhage. Esophagus is distended and fluid-filled with wall thickening, and there is questionable soft tissue density in the upper stomach, which may represent postoperative change or underlying mass. Correlation with endoscopy is suggested for further evaluation. Reviewed, Interpreted and Dictated by Leeroy Hughes III, MD Transcribed by Liat Maravilla Authenticated and [facility]
[2023-12-20] MEDS: LACTATED RINGERS 1000ML 1,000 ML 999 ML IV (06:06)
[2023-12-20] MEDS: ONDANSETRON 4MG/2ML VIAL 4 MG IV (06:07)
[2023-12-20] MEDS: LABETALOL 20MG/4ML SYRINGE 10 MG IV (07:09)
--- NOTE | 2023-12-20 07:14 | PC.NURSE ---
0655: Notified Dr. Pabon of patient's trending elevated BP. Inquired for an order for an antihypertensive.
--- NOTE | 2023-12-20 07:23 | ED_ITS ---
Discharge Plan Disposition Chief Complaint: Nausea/Vomiting/Diarrhea Prescriptions Prescriptions: No Action pantoprazole 40 mg tablet,delayed release (DR/EC) 40 mg PO DAILY famotidine 20 mg tablet 20 mg PO DAILY Qty: 90 1RF losartan 50 mg tablet 50 mg PO DAILY Qty: 90 3RF rosuvastatin 40 mg tablet 40 mg PO HS Qty: 90 3RF memantine 10 mg tablet 10 mg PO BID bisoprolol fumarate 5 mg tablet See Rx Instructions .ROUTE .COMPLEX Qty: 90 3RF Dose Instruction: TAKE 1/2 TABLET BY MOUTH EVERY DAY FOR BLOOD PRESSURE Rx Instructions: TAKE 1/2 TABLET BY MOUTH EVERY DAY FOR BLOOD PRESSURE aspirin 81 mg tablet,delayed release (DR/EC) See Rx Instructions .ROUTE .COMPLEX Qty: 90 1RF Dose Instruction: TAKE ONE TABLET BY MOUTH EVERY MORNING Rx Instructions: TAKE ONE TABLET BY MOUTH EVERY MORNING Paxlovid 300 mg (150 mg x 2)-100 mg tablets,dose pack 300 tab PO PER PKG DIR Qty: 30 0RF Referrals Follow up/Referrals: Provider,Referral, MD [Primary Care Provider] - See instructions Instructions Patient Instructions: DI for Nausea -- Adult, DI for Nausea -- Child, DI for Diarrhea and Traveler's Diarrhea -- Adult, DI for Diarrhea and Traveler's Diarrhea -- Child Print Language Print Language: [place] Zealander Discharge ED Provider: Kaylynn Pabon Adult HPI General Chief complaint: Nausea/Vomiting/Diarrhea Stated complaint: coughing up blood Time Seen by Provider: 12/20/23 06:00 Mode of Arrival: Wheelchair Source of Information: Spouse Limitations: No Limitations Description of Symptoms (Recalled from ER Triage Doc. by RN): Pt dx with covid yesterday at her pcp, has been feeling bad since Tuesday. Given Paxlovid and Mucinex per . states she has dementia and lastnight she began coughing up blood. Pt has brown emesis on her shirt. Denies any abdominal pain or diarrhea. History of Present Illness HPI narrative: 83-year-old female history of dementia, hypertension, hyperlipidemia, SAH presents to the ER for concerns of hemoptysis/hematemesis. Patient has had a cough since Tuesday and was diagnosed with COVID yesterday. She was started on Paxlovid by her primary care physician but her spouse states she has had emesis and vomited both of her doses. He also reports that she vomited her blood pressure medication today. Spouse is concerned that patient's throat is raw and that is what is causing the blood to,. She has no history of liver disease or varices. No blood thinners other than aspirin. Patient does have a hiatal hernia. She complains of nausea and abdominal pain, no chest pain or difficulty breathing. Patient had multiple episodes of small-volume brown emesis with findings of coffee grounds in the ER. Related Data Home Medications ?Medication ?Instructions ?Recorded ?Confirmed memantine 10 mg tablet 10 mg PO BID 05/06/21 12/06/23 pantoprazole 40 mg tablet,delayed 40 mg PO DAILY 09/09/21 12/06/23 release Previous Rx's ?Medication ?Instructions ?Recorded bisoprolol fumarate 5 mg tablet See Rx Instructions .Route 09/26/23 .COMPLEX #90 tabs famotidine 20 mg tablet 20 mg PO DAILY #90 tabs 10/25/23 aspirin 81 mg tablet,delayed See Rx Instructions .Route 11/29/23 release .COMPLEX #90 tabs losartan 50 mg tablet 50 mg PO DAILY #90 tabs 12/06/23 rosuvastatin 40 mg tablet 40 mg PO HS Cholesterol #90 tabs 12/06/23 nirmatrelvir 300 mg (150 mg 300 tab PO PER PKG DIR #30 tabs 12/19/23 x2)-ritonavir 100 mg tablet,dose pack (Paxlovid) Allergies Allergy/AdvReac Type Severity Reaction Status Date / Time No Known Allergies Allergy Verified 12/06/23 13:53 [facility] Disclaimer: The information contained in this section may have been updated after the patient was seen, as this information can be updated by other users. Medical History Dementia TBI (traumatic brain injury) Abnormal electrocardiography Social History Smoking Status: Never smoker alcohol intake: never current occupational status: retired Travel in the last 8 weeks: Inside the [place] household members: spouse housing: house caffeine: Yes ROS Obtained: Yes All systems reviewed & no additional complaints except as documented Respiratory Respiratory: Reports cough Gastrointestinal Gastrointestingal: Reports abdominal pain, nausea and vomiting Physical Exam General General appearance: alert and other (Ill-appearing) Head Head exam: atraumatic and normocephalic Eye Eye exam: Present PERRL and EOMI ENT ENT exam: Present mucous membranes moist Neck Neck exam: Present normal inspection and full ROM Chest Chest inspection: Present symmetric chest wall rise Respiratory Respiratory exam: Absent respiratory distress or stridor Cardiovascular Cardiovascular exam: Present regular rate and normal rhythm Abdominal Exam Abdominal exam: Present soft and tenderness (Mild diffuse); Absent distention, guarding or rebound Comment: Emesis of brown contents Extremities Exam Extremities exam: Present full ROM Neurological Exam Neurological exam: Present alert and oriented X3; Absent motor sensory deficit Psychiatric Psychiatric exam: Present normal affect and normal mood Skin Skin exam: Present warm and dry Medical Decision Making Medical Records Medical records reviewed: Yes I reviewed the patient's medical records. Be Inquiry Pt receiving controlled substance: No Vital Signs: 12/20/23 05:39 12/20/23 07:09 Temperature 97.8 F Temperature Source Oral Pulse Rate [Left] 84 Respiratory Rate 18 Blood Pressure 213/107 H Blood Pressure [Right Arm] 223/113 H Blood Pressure Mean [Right Arm] 149 Blood Pressure Source [Right Arm] Automatic Cuff Blood Pressure Position [Right Arm] Supine 02 Sat by Pulse Oximetry 97 Oxygen Delivery Method Room Air Orders (Tests/Meds): ED MEDICATIONS Discontinued Medications Generic Name Dose Route Start Last Admin Trade Name Freq PRN Reason Stop Dose Admin Lactated Ringer's 1,000 mls @ 999 mls/hr 12/20/23 06:00 12/20/23 06:06 Lactated Ringer's 1000 Ml Bag IV 12/20/23 07:00 Not Given .Q1H1M ONE Lactated Ringer's 1,000 mls @ 999 mls/hr 12/20/23 06:15 12/20/23 06:38 Lactated Ringer's 1000 Ml Bag IV 12/20/23 07:15 Not Given .Q1H1M ONE Labetalol HCl 10 mg 12/20/23 07:03 12/20/23 07:09 Labetalol 20mg/4ml Syringe IV 12/20/23 07:04 10 mg ONCE ONE Administration Ondansetron HCl 4 mg 12/20/23 06:00 12/20/23 06:07 Ondansetron 4mg/2ml Vial IV 12/20/23 06:01 4 mg ONCE ONE Administration ORDERS Category Date Time Status CT angio abdomen pelvis Stat Cat Scan 12/20/23 06:[address] angio chest - dissection Stat Cat Scan 12/20/23 06:00 Ordered CBC w/Auto Diff [Complete Blood Count Auto Diff] Stat Lab 12/20/23 06:00 Ordered CMP [Comprehensive Metabolic Panel] Stat Lab 12/20/23 06:00 Ordered Lactic Acid Stat Lab 12/20/23 07:19 Ordered PT INR [Prothrombin Time INR] Stat Lab 12/20/23 06:00 Ordered PTT [Activated Partial Thrombo Time] Stat Lab 12/20/23 06:00 Ordered Trop I [Troponin I] Stat Lab 12/20/23 07:18 Ordered Troponin I Q3H Lab 12/20/23 10:30 Ordered Troponin I Q3H Lab 12/20/23 13:30 Ordered Medical Decision Narrative: In summary, this 83-year-old female presents to the emergency department today with concerns of hematemesis/hemoptysis in the setting of recent COVID diagnosis which is a comorbidity of current condition. On initial evaluation patient is hemodynamically stable though she is hypertensive, she is not having chest pain or headache, she is having small amount of active brown emesis in the ER as well as nausea and mild diffuse abdominal discomfort with palpation. Differential diagnosis includes but is not limited to ACS, PE, GI bleed, hemoptysis, bronchiectasis, bronchitis, pneumonia, viral syndrome, electrolyte abnormality, dehydration. Based on these concerns, I ordered CT imaging of the chest, abdomen, pelvis with GI bleed protocol, coags, serum labs, cardiac workup. Patient received IV fluids, IV labetalol, IV Zofran for treatment initially. Labs and imaging pending at the time of physician handoff. Patient handed off to Dr. Machado for continued management and disposition. Critical Care Critical Care Time Critical Care Time: No
--- NOTE | 2023-12-20 07:34 | ECG_ITS ---
APPROVED REPORT Exam: Resting ECG HR:84 bpm ECG Measurements Heart Rate 84 AXES OH 167 P 49 QRSd 96 QRS 21 QT 423 T 46 QTc 464 Conclusion SINUS RHYTHM WITH OCCASIONAL SUPRAVENTRICULAR PREMATURE COMPLEXES POSSIBLE ANTERIOR MYOCARDIAL INFARCTION , OF INDETERMINATE AGE [30 ms Q WAVE IN V3/V4, OR R < 0.2 mV IN V4] POSSIBLE INFERIOR MYOCARDIAL INFARCTION , PROBABLY OLD [30 ms Q WAVE IN II/aVF] abnormal, no stemi Electronically signed by : GARCIA MARSHALL, 12/21/2023 03:22:38
--- NOTE | 2023-12-20 07:37 | CT_ITS ---
FINAL REPORT CLINICAL HISTORY: severe HTN, vomiting COMPARISON: 10/19/2023 FINDINGS: Axial images of the head were obtained without contrast. Coronal reformatted images were also obtained. This study was performed with techniques to keep radiation doses as low as reasonably achievable (ALARA). Individualized dose reduction techniques using automated exposure control or adjustment of mA and/or kV according to the patient''s size were employed. There is generalized age-appropriate atrophy. Periventricular low-attenuation areas are seen consistent with mild chronic ischemic changes. There is no evidence of intracranial hemorrhage or mass. There is no evidence of acute infarct. There is no evidence of shift of the midline structures. No skull abnormality is seen on the bone window images. There is mild mucosal thickening in multiple sinuses. IMPRESSION: Atrophy and mild periventricular chronic ischemic changes. No acute intracranial abnormality identified. Reviewed, Interpreted and Dictated by Leeroy Hughes III, MD Transcribed by Martina Gardner Authenticated and [facility]
[2023-12-20 07:41] LABS: Basophils % 0.3 % (0.1-2.0); Hematocrit 48.8 % (37.0-47.0); Hemoglobin 16.2 g/dL (12.2-16.2); Lymphocytes # 0.6 K/mm3 (0.7-4.5); Lymphocytes % 8.1 % (10-50); Mean Corpuscular HGB Conc 33.2 g/dL (31.8-35.4); Mean Corpuscular Volume 90.4 fl (81-99); Mean Platelet Volume 8.3 fl (7.4-10.4); Monocytes # 0.4 K/mm3 (0.1-1.0); Monocytes % 4.5 % (1.7-9.3); Neutrophils # 6.8 K/mm3 (1.8-7.8); Neutrophils % 87.1 % (37.0-80.0); Platelet Count 217 K/mm3 (142-424); Red Cell Distribution Width 16.4 % (11.5-17.5); White Blood Count 7.9 K/mm3 (4.8-10.8)
[2023-12-20 07:48] LABS: Activated Partial Thrombo Time 25.1 seconds (22.8-30.6); INR 1.08 (0.9-1.1)
[2023-12-20 07:49] LABS: MANUAL DIFFERENTIAL MANUAL DIFFERENTIAL (MANUAL DIFF)
[2023-12-20 07:52] LABS: Troponin I < 0.01 ng/ml (0.00-0.034)
[2023-12-20] MEDS: FAMOTIDINE 20MG/2ML VIAL 20 MG IV (07:54)
[2023-12-20 08:08] LABS: Albumin Level 4.3 g/dl (3.5-5.0); Chloride 105 mmol/L (98-107); Potassium 3.2 mmoL/L (3.5-5.1); Sodium 140 mmol/L (136-145)
[2023-12-20 08:10] LABS: Blood Urea Nitrogen 10 mg/dl (7-17); Creatinine Clearance Estimated 48 mL/min (50-200); Estimated Glomerular Filt Rate 95 ml/min (>60); GFR (African American) 115 ML/MIN (>60)
[2023-12-20 08:11] LABS: Alanine Aminotransferase 28 U/L (12-78); Albumin/Globulin Ratio 1.5 (1.1-1.8); Alkaline Phosphatase 110 U/L (38-126); Anion Gap 13.2 mEq/L (5-15); Aspartate Amino Transferase 33 U/L (14-36); Bilirubin,Total 1.1 mg/dl (0.2-1.3); Calcium 9.7 mg/dl (8.4-10.2); Carbon Dioxide 25 mmol/L (22.0-30.0); Globulin 2.9 g/dL (1.3-3.2); Glucose 180 mg/dl (74-100); Total Protein,Serum 7.2 g/dl (6.3-8.2)
[2023-12-20] MEDS: IOPAMIDOL-370 (76%);100ML BOTTLE 100 ML IV (09:04)
[2023-12-20] MEDS: 0.9 % SODIUM CHLORIDE 50 ML VIAL IV (09:04)
[2023-12-20] MEDS: SODIUM CHLORIDE 0.9% 10ML SYR (RAD ONLY) 10 ML IV (09:04)
[2023-12-20] MEDS: KCl 10mEq/100ml 100 ML 100 MEQ IV (09:05)
[2023-12-20] MEDS: METOCLOPRAMIDE HCL 10MG/2ML VIAL 10 MG IVP (09:05)
[2023-12-20 09:23] LABS: Lymphocytes % 12 % (10-50); Monocytes % 1 % (2-9); Neutrophils % 87 % (42-76); Platelet Estimate Normal; RBC Morphology Normal; Total Cells Counted 100
--- NOTE | 2023-12-20 10:28 | PC.NURSE ---
Rounded on pt helping them back from the bathroom and pt asked for a warm blanket and one was provided to her and pt was hooked back up on the monitor and vitals
[2023-12-20 10:49] LABS: Lactic Acid 2.8 mmol/L (0.7-2.1)
[2023-12-20 10:54] LABS: Troponin I < 0.01 ng/ml (0.00-0.034)
--- NOTE | 2023-12-20 11:41 | PC.NURSE ---
Called [facility] to consult with Thoracic Surgery about this pt. Made contact with [facility] and they advised they would call us back
--- NOTE | 2023-12-20 12:18 | PC.NURSE ---
called back and advised that they had not received the images so they were powershared again to them
--- NOTE | 2023-12-20 12:54 | PC.NURSE ---
DR RIDER SPEAKING WITH DR COHEN
--- NOTE | 2023-12-20 12:58 | PC.NURSE ---
MANUFACTURER REPRESENTATIVE NOTIFIED OF ADMISSION, NO BEDS AVAILABLE AT THIS TIME, PT WILL BOARD IN ED
--- NOTE | 2023-12-20 13:19 | HMH.PHAINT1 ---
Pharmacy Intervention Comments: MEDICATION RECONCILIATION COMPLETED ON PATIENT USING EXTERNAL FILL HISTORY FROM PHARMACY AND LIST FROM CARDIOLOGY OFFICE. -ROSE LENNON, RAULD
[2023-12-20 14:24] LABS: Reflex Lactic Add Lactic Reflex
--- NOTE | 2023-12-20 14:31 | PC.NURSE ---
report called to SANTIAGO Bernabe
--- NOTE | 2023-12-20 14:31 | PC.NURSE ---
bed on the floor available. Report called at this time
--- NOTE | 2023-12-20 14:37 | PC.NURSE ---
Nurse asked about pt's bp of 193/103 to see if md wants to order medication before transfer to the floor.
[2023-12-20 15:13] LABS: Lactic Acid Follow Up (RFLX 1) 1.9 mmol/L (0.7-2.1)
--- NOTE | 2023-12-20 15:29 | P.HP_ITS ---
History of Present Illness *Admission Date: 12/20/23 *Reason for visit:: Intractable nausea and vomit *History of present illness: Ms. Lucio is an 83-year-old female with dementia, hypertension, hyperlipidemia who presented to the ER because of intractable nausea and vomiting. She tested positive for COVID yesterday at home on a home test. Their primary care physician prescribed Paxlovid which she started yesterday. Presents with her who provides history. States that she began coughing up some blood but also throwing up regularly with coffee grounds. Denies any diarrhea, syncope, black stools. Unable to take her home medications. Reportedly has history of liver disease and varices. No blood thinners other than aspirin. Patient is complaining of nausea and abdominal pain. Denies any chest pain or shortness of breath. Labs obtained showing Normal hemoglobin of 16.2, platelets 217. Electrolytes and kidney function nonactionable. Medications given to address her nausea and vomiting. Continue to have significant nausea. Blood pressure is elevated 190s to 210. Medicine consulted for admission and further management of her hypertensive urgency and intractable nausea and vomiting. On evaluation, patient is in no acute distress. Has marked elevation of blood pressure on vitals. Stable on room air. Defers to for history and answering questions. [facility] Disclaimer: The information contained in this section may have been updated after the patient was seen, as this information can be updated by other users. Medical History Dementia TBI (traumatic brain injury) Abnormal electrocardiography Social History Smoking Status: Never smoker alcohol intake: never current occupational status: retired Travel in the last 8 weeks: [place] the [place] household members: spouse housing: house caffeine: Yes Review of Systems Review of Systems Review of systems (narrative): 14 point review of systems performed, pertinent positives and negatives as per [facility] Meds Home Medications and Allergies Home Medications ?Medication ?Instructions ?Recorded ?Confirmed ?Type memantine 10 mg tablet 10 mg PO BID 05/06/21 12/20/23 History famotidine 20 mg tablet 20 mg PO DAILY #90 tabs 10/25/23 12/20/23 Rx aspirin 81 mg tablet,delayed 81 mg PO DAILY 12/20/23 12/20/23 History release bisoprolol fumarate 5 mg tablet 2.5 mg PO DAILY 12/20/23 12/20/23 History losartan 50 mg tablet 50 mg PO DAILY 12/20/23 12/20/23 History nirmatrelvir 300 mg (150 mg 30 tab PO PER PKG DIR 12/20/23 12/20/23 History x2)-ritonavir 100 mg tablet,dose pack (Paxlovid) rosuvastatin 40 mg tablet 40 mg PO HS 12/20/23 12/20/23 History New Prescriptions to Start Prescriptions: Allergies Allergy/AdvReac Type Severity Reaction Status Date / Time No Known Allergies Allergy Verified 12/06/23 13:53 Exam Data for Last 24 hours Vital signs and Labs for Last 24 Hours: Temp Pulse Resp BP Pulse Ox O2 Del Method 97.8 F 90 16 193/103 H 95 Room Air 12/20/23 05:39 12/20/23 14:00 12/20/23 14:00 12/20/23 14:00 12/20/23 14:00 12/20/23 14:00 Laboratory Results - last 24 hr 12/20/23 05:50: WBC 7.9, RBC 5.40, Hgb 16.2, Hct 48.8 H, MCV 90.4, MCH 30.0, MCHC 33.2, RDW 16.4, Plt Count 217, MPV 8.3, Neut % (Auto) 87.1 H, Lymph % (Auto) 8.1 L, [place] % (Auto) 4.5, Eos % (Auto) 0.0 L, Baso % (Auto) 0.3, Neut # (Auto) 6.8, Lymph # (Auto) 0.6 L, [place] # (Auto) 0.4, Eos # (Auto) 0.0, Baso # (Auto) 0.0, Total Counted 100, Neutrophils % (Manual) 87 H, Lymphocytes % (Manual) 12, Monocytes % (Manual) 1 L, Platelet Estimate Normal, RBC Morphology Normal, PT 12.0, INR 1.08, APTT 25.1, Sodium 140, Potassium 3.2 L, Chloride 105, Carbon Dioxide 25, Anion Gap 13.2, BUN 10, Creatinine 0.60, Estimated Creat Clear 48, Estimated GFR 95, Est GFR ( Amer) 115, Glucose 180 H, Calcium 9.7, Total Bilirubin 1.1, AST 33, ALT 28, Alkaline Phosphatase 110, Troponin I < 0.01, Total Protein 7.2, Albumin 4.3, Globulin 2.9, Albumin/Globulin Ratio 1.5 12/20/23 10:20: Lactate 2.8 H, Troponin I < 0.01 12/20/23 14:47: Lactate 1.9 I & O for Last 24 hours: Intake & Output 12/17/23 12/18/23 12/19/23 12/20/23 23:59 23:59 23:59 23:59 Weight 72.575 kg Constitutional Constitutional: no acute distress, average body habitus, chronically ill appearing and cooperative Comments: Ill-appearing *Routine HEENT Exam Head: Present normocephalic Eye: Present EOMI and PERRL ENT: Present mucous membranes moist *Routine Neck Exam Neck: Present supple; Absent lymphadenopathy *Routine Respiratory Exam Respiratory: Present CTA bilaterally; Absent rhonchi, wheezes or crackles *Routine Cardiovascular Exam Cardiovascular: Present RRR *Routine Abdominal Exam Abdominal: Present soft and normoactive bowel sounds; Absent tenderness *Routine Rectal Exam Rectal:: deferred *Routine Genitalia Exam Genitalia:: deferred *Routine Extremities Exam Extremities: Absent cyanosis, clubbing or edema *Routine Skin Exam Skin: Present warm; Absent rash *Routine Neurological Exam Neurological: Present alert and moving all extremities; Absent altered mental status Comments: Oriented to self, knows she is at the hospital Assessment and Plan *Assessment and plan (1) Coffee ground emesis: Status: Acute Category: Medical Code(s): K92.0 - Hematemesis (2) Intractable nausea and vomiting: Status: Acute Category: Medical Code(s): R11.2 - Nausea with vomiting, unspecified (3) Hypokalemia: Status: Acute Category: Medical Code(s): E87.6 - Hypokalemia (4) Esophageal thickening: Status: Acute Category: Medical Code(s): K22.89 - Other specified disease of esophagus (5) Hypertensive urgency: Status: Acute Category: Medical Code(s): I16.0 - Hypertensive urgency (6) Hyperlipidemia: Status: Chronic Qualifiers: Hyperlipidemia type: unspecified Qualified Code(s): E78.5 - Hyperlipidemia, unspecified Category: Medical Code(s): E78.5 - Hyperlipidemia, unspecified (7) Coronary artery disease: Status: Chronic Qualifiers: Associated angina: without angina Coronary Disease-Associated Artery/Lesion type: [place] artery [place] vs. transplanted heart: [place] heart Qualified Code(s): I25.10 - Atherosclerotic heart disease of [place] coronary artery without angina pectoris Category: Medical Code(s): I25.10 - Atherosclerotic heart disease of [place] coronary artery without angina pectoris (8) Hypertension: Status: Chronic Qualifiers: Hypertension type: unspecified Qualified Code(s): I10 - Essential (primary) hypertension Category: Medical Code(s): I10 - Essential (primary) hypertension (9) Dementia: Status: Acute Category: Medical Code(s): F03.90 - Unspecified dementia, unspecified severity, without behavioral disturbance, psychotic disturbance, mood disturbance, and anxiety (10) COVID: Status: Acute Category: Medical Code(s): U07.1 - COVID-19 Plan 83-year-old female who presented with intractable nausea and vomiting after starting Paxlovid for COVID diagnosis as of yesterday. Concern for coffee- ground emesis. Discussed case with ER physician, request admission for monitoring overnight, serial labs, treatment of her nausea and vomiting and hypertension. I agreed to admit for further management. Patient appears ill but in no acute distress. Problems addressed as follows: Intractable nausea and vomiting Coffee-ground emesis - Findings of esophagitis on CT, increased density of upper stomach. - Hgb normal at 16.2, white count 7.9. Platelets 217. No active signs of extravasation of contrast on CTA of the abdomen - CBC, CMP, magnesium ordered for the morning. INR pending. - Initiate pantoprazole 40 mg twice daily. Maalox p.o. x 1 to assist with irritation of esophagus. - Zofran 4 mg IV every 8 hours as needed for nausea -Transfusion threshold hemoglobin less than 7 -Concern for emesis secondary to Paxlovid. Discontinued - Kidney function normal with BUN 10 creatinine 0.6 Dementia: Complicates all aspects of her care. Will hold on memantine given risk for worsening nausea/emesis Hypertensive urgency: Will administer enalapril 1.25 mg IV once on admission. Resume home regimen for your blood pressure with bisoprolol 2.5 mg daily, losartan 50 mg daily, Hyperlipidemia: Crestor 40 mg nightly held due to nausea and vomiting. COVID: On room air. Holding on any treatment at this time. Will monitor for worsening symptoms Full code Holding anticoagulation in the setting of coffee-ground emesis Clear liquid diet
--- NOTE | 2023-12-20 15:48 | PC.NURSE ---
arrived by wheelchair from ed.
[2023-12-20] MEDS: ENALAPRILAT 2.5MG/2ML VIAL 1.25 MG IV (16:24)
[2023-12-20] MEDS: ALUMINUM/MAGNESIUM/SIMETHICONE 30ML UDC 30 ML PO (16:25)
--- NOTE | 2023-12-20 16:49 | PC.NURSE ---
Pt. came to the floor and had pulled her iv out in the ER. Three attempts and iv 20g placed in left AC.
[2023-12-20 19:38] LABS: Microscopic, Urine URINE MICROSCOPIC (MICROSCOPIC)
[2023-12-20 19:43] LABS: Appearance,Urine SL CLOUDY (Clear); Bilirubin,Urine Negative (Negative); Blood, Urine TRACE-I (Negative); Color,Urine YELLOW (Yellow); Glucose,Urine (UA) Negative (Negative); Ketones,Urine Negative (Negative); Leukocyte Esterase,Urine 2+ (Negative); Nitrate,Urine Negative (Negative); Protein,Urine 2+ (Negative); Specific Gravity, Urine 1.015 (1.005-1.030)
[2023-12-20 20:00] LABS: Bacteria,Urine 1+ /lpf; RBC,Urine Occasional #/hpf (0-3); WBC,Urine 20-50 #/hpf (0-3)
[2023-12-20] MEDS: PANTOPRAZOLE 40MG VIAL 40 MG IV (20:12)
--- NOTE | 2023-12-20 21:08 | EXP.PN ---
Subjective *Date: 12/20/23 *Time: 21:24 Interval history: Urinalysis has 2+ leukocytes, patient does have a history of nausea and vomiting. Exam Data for Last 24 hours Vital signs and Labs for Last 24 Hours: Temp Pulse Resp BP Pulse Ox O2 Del Method 99.3 F 71 19 134/90 93 L Room Air 12/20/23 19:53 12/20/23 19:53 12/20/23 19:53 12/20/23 19:53 12/20/23 19:53 12/20/23 20:00 Laboratory Results - last 24 hr 12/20/23 05:50: WBC 7.9, RBC 5.40, Hgb 16.2, Hct 48.8 H, MCV 90.4, MCH 30.0, MCHC 33.2, RDW 16.4, Plt Count 217, MPV 8.3, Neut % (Auto) 87.1 H, Lymph % (Auto) 8.1 L, [place] % (Auto) 4.5, Eos % (Auto) 0.0 L, Baso % (Auto) 0.3, Neut # (Auto) 6.8, Lymph # (Auto) 0.6 L, [place] # (Auto) 0.4, Eos # (Auto) 0.0, Baso # (Auto) 0.0, Total Counted 100, Neutrophils % (Manual) 87 H, Lymphocytes % (Manual) 12, Monocytes % (Manual) 1 L, Platelet Estimate Normal, RBC Morphology Normal, PT 12.0, INR 1.08, APTT 25.1, Sodium 140, Potassium 3.2 L, Chloride 105, Carbon Dioxide 25, Anion Gap 13.2, BUN 10, Creatinine 0.60, Estimated Creat Clear 48, Estimated GFR 95, Est GFR ( Amer) 115, Glucose 180 H, Calcium 9.7, Total Bilirubin 1.1, AST 33, ALT 28, Alkaline Phosphatase 110, Troponin I < 0.01, Total Protein 7.2, Albumin 4.3, Globulin 2.9, Albumin/Globulin Ratio 1.5 12/20/23 10:20: Lactate 2.8 H, Troponin I < 0.01 12/20/23 14:47: Lactate 1.9 12/20/23 19:29: Urine Color Yellow, Urine Appearance Sl cloudy, Urine pH 7.0, Ur Specific [place] 1.015, Urine Protein 2+, Urine Glucose (UA) Negative, Urine Ketones Negative, Urine Blood Trace-i, Urine Nitrate Negative, Urine Bilirubin Negative, Urine Urobilinogen 4.0, Ur Leukocyte Esterase 2+ A, Urine RBC Occasional, Urine WBC 20-50, Ur Squamous Epith Cells 10-20, Urine Bacteria 1+ I & O for Last 24 hours: Intake & Output 12/17/23 12/18/23 12/19/23 12/20/23 23:59 23:59 23:59 23:59 Output Total 0 / 0 Balance 0 / 0 Weight 72.575 kg Narrative: UA shows positive +2 leukocytes in the urine Constitutional Constitutional: no acute distress Comments: The patient was sound asleep. Talked with nurse she is oriented to self only did not feel it was necessary to awaken her. *Routine Respiratory Exam Respiratory: Present normal respiratory effort Comments: Patient appears comfortable comfortable sleeping there is no sign of respiratory difficulty *Routine Abdominal Exam Comments: Deferred at this time as I did not want to awaken the patient Assessment and Plan *Assessment and plan (1) Leukocytes in urine: Status: Acute Category: Medical Code(s): R82.998 - Other abnormal findings in urine Plan 1. Urinalysis showing +2 leukocytes, patient with a history of vomiting. And decreased orientation. Plan: Will add Rocephin 1 g daily for 3 doses awaiting sensitivity on UA
[2023-12-20] MEDS: CEFTRIAXONE 1 GM 1 GM in 0.9 % SODIUM CHLORIDE 50 ML IV (21:22)
[2023-12-21 04:00] VITALS: BP 143/77; PULSE 66; RESP 18; TEMP 36.2; O2SAT 93; BMI 27.1
--- NOTE | 2023-12-21 04:05 | PC.NURSE ---
alerted nurse about low temp
--- NOTE | 2023-12-21 05:38 | PC.NURSE ---
Pt has remained confused throughout the shift only being alert to self. She has pulled out her IV twice this shift. Bed alarm has remained in place. She denies any nausea or vomiting this shift. Pt has no complaints at this time, call light within reach.
[2023-12-21 06:28] LABS: Albumin Level 3.2 g/dl (3.5-5.0); Chloride 108 mmol/L (98-107); Sodium 139 mmol/L (136-145)
[2023-12-21 06:29] LABS: Potassium 3.3 mmoL/L (3.5-5.1)
[2023-12-21 06:31] LABS: Alanine Aminotransferase 14 U/L (12-78); Albumin/Globulin Ratio 1.3 (1.1-1.8); Alkaline Phosphatase 75 U/L (38-126); Anion Gap 6.3 mEq/L (5-15); Aspartate Amino Transferase 23 U/L (14-36); Bilirubin,Total 0.5 mg/dl (0.2-1.3); Blood Urea Nitrogen 17 mg/dl (7-17); Carbon Dioxide 28 mmol/L (22.0-30.0); Creatinine Clearance Estimated 44 mL/min (50-200); Estimated Glomerular Filt Rate 80 ml/min (>60); GFR (African American) 96 ML/MIN (>60); Globulin 2.4 g/dL (1.3-3.2); Total Protein,Serum 5.6 g/dl (6.3-8.2)
[2023-12-21 06:32] LABS: Glucose 86 mg/dl (74-100); Magnesium 2.3 mg/dl (1.6-2.3)
[2023-12-21 06:55] LABS: Basophils # 0.1 K/mm3 (0-0.2); Lymphocytes # 1.6 K/mm3 (0.7-4.5); White Blood Count 8.4 K/mm3 (4.8-10.8)
[2023-12-21 07:04] LABS: Basophils % 0.6 % (0.1-2.0); Eosinophils % 0.1 % (0.1-12.0); Hematocrit 44.5 % (37.0-47.0); Hemoglobin 14.3 g/dL (12.2-16.2); Lymphocytes % 19.3 % (10-50); Mean Corpuscular HGB Conc 32.1 g/dL (31.8-35.4); Mean Corpuscular Hemoglobin 29.2 pg (27.0-31.2); Mean Corpuscular Volume 90.8 fl (81-99); Mean Platelet Volume 8.8 fl (7.4-10.4); Monocytes # 0.8 K/mm3 (0.1-1.0); Monocytes % 9.9 % (1.7-9.3); Neutrophils # 5.9 K/mm3 (1.8-7.8); Platelet Count 199 K/mm3 (142-424); Red Cell Distribution Width 16.4 % (11.5-17.5)
[2023-12-21 07:54] VITALS: BP 144/73; PULSE 67; RESP 19; TEMP 36.6; O2SAT 93
[2023-12-21] MEDS: IRBESARTAN 75MG TABLET 75 MG PO (08:26)
[2023-12-21] MEDS: PANTOPRAZOLE 40MG TABLET 40 MG PO (08:26)
[2023-12-21] MEDS: FAMOTIDINE 20MG TABLET 20 MG PO (08:26)
[2023-12-21] MEDS: BISOPROLOL 5MG TABLET 2.5 MG PO (08:27)
[2023-12-21 08:58] LABS: Adenovirus,PCR Not Detected (NotDetected); Bordetella Pertussis Not Detected (NotDetected); Chlamydophila Pneumoniae, PCR Not Detected (NotDetected); Coronavirus 229E Not Detected (NotDetected); Coronavirus NL63 Not Detected (NotDetected); Coronavirus OC43 Not Detected (NotDetected); Coronovirus HKU1,PCR Not Detected (NotDetected); Human Metapneumovirus Not Detected (NotDetected); Influenza A, PCR Not Detected (NotDetected); Influenza AH1, 2009 Not Detected (NotDetected); Influenza AH1, PCR Not Detected (NotDetected); Influenza AH3,PCR Not Detected (NotDetected); Influenza B, PCR Not Detected (NotDetected); Mycoplasma Pneumoniae, PCR Not Detected (NotDetected); Parainfluenza 1, PCR Not Detected (NotDetected); Parainfluenza 2, PCR Not Detected (NotDetected); Parainfluenza 3, PCR Not Detected (NotDetected); Parainfluenza 4, PCR Not Detected (NotDetected); Respiratory Syncytial Virus Not Detected (NotDetected); Rhinovirus/Enterovirus Not Detected (NotDetected)
[2023-12-21 10:25] LABS: Coronavirus 19, PCR Detected (NotDetected)
[2023-12-21 12:00] VITALS: BP 115/70; PULSE 71; RESP 19; TEMP 36.7; O2SAT 93
--- NOTE | 2023-12-21 14:20 | EXP.DC.SUM ---
General Admission date:: 12/20/23 Discharge date: 12/21/23 HPI HPI HPI: Ms. Lucio is an 83-year-old female with dementia, hypertension, hyperlipidemia who presented to the ER because of intractable nausea and vomiting. She tested positive for COVID yesterday at home on a home test. Their primary care physician prescribed Paxlovid which she started yesterday. Presents with her who provides history. States that she began coughing up some blood but also throwing up regularly with coffee grounds. Denies any diarrhea, syncope, black stools. Unable to take her home medications. Reportedly has history of liver disease and varices. No blood thinners other than aspirin. Patient is complaining of nausea and abdominal pain. Denies any chest pain or shortness of breath. Labs obtained showing Normal hemoglobin of 16.2, platelets 217. Electrolytes and kidney function nonactionable. Medications given to address her nausea and vomiting. Continue to have significant nausea. Blood pressure is elevated 190s to 210. Medicine consulted for admission and further management of her hypertensive urgency and intractable nausea and vomiting. On evaluation, patient is in no acute distress. Has marked elevation of blood pressure on vitals. Stable on room air. Defers to for history and answering questions. Hospital Course Hospital Course Hospital Course: 83-year-old female who presented with intractable nausea and vomiting after starting Paxlovid for COVID diagnosis as of yesterday. Concern for coffee-ground emesis. Discussed case with ER physician, request admission for monitoring overnight, serial labs, treatment of her nausea and vomiting and hypertension. I agreed to admit for further management. Patient tolerated p.o. intake. Nausea and vomiting resolved. Remained hemodynamically stable and afebrile. On room air. Stable to discharge home to continue to convalesce from COVID. Problems addressed as follows: Intractable nausea and vomiting, resolved Coffee-ground emesis - Findings of esophagitis on CT, increased density of upper stomach. Needs close follow-up as an outpatient. Consider EGD when better from COVID. Initiated on medical management with pantoprazole. No further nausea or vomiting. No black or tarry stools. Hemoglobin remained stable. 14.3 on day of discharge. Given clinical stability, no active signs of bleeding, stable to discharge home with continued medical management. Concerned that she had emesis secondary to Paxlovid. Recommend discontinuing given her clinical stability. Kidney function and electrolytes remained normal during hospitalization. Dementia: Complicates all aspects of her care. Will resume memantine at discharge given resolution of her GI symptoms Hypertensive urgency: Administered dose of enalapril on admission. Blood pressure improved. Likely due to not being able to tolerate her home meds for over 24 hours. Improved on her home regimen after resuming. Continue at discharge, bisoprolol 2.5 mg daily, losartan 50 mg daily, Hyperlipidemia: Crestor 40 mg nightly held due to nausea and vomiting. Resume after discharge COVID: On room air. Holding on any treatment at this time. Repeat test during admission also positive. Exam Data for Last 24 hours Vital signs and Labs for Last 24 Hours: Temp Pulse Resp BP Pulse Ox O2 Del Method 98.1 F 71 19 115/70 93 L Room Air 12/21/23 12:00 12/21/23 12:00 12/21/23 12:00 12/21/23 12:00 12/21/23 12:00 12/21/23 12:00 Laboratory Results - last 24 hr 12/20/23 14:47: Lactate 1.9 12/20/23 19:29: Urine Color Yellow, Urine Appearance Sl cloudy, Urine pH 7.0, Ur Specific [place] 1.015, Urine Protein 2+, Urine Glucose (UA) Negative, Urine Ketones Negative, Urine Blood Trace-i, Urine Nitrate Negative, Urine Bilirubin Negative, Urine Urobilinogen 4.0, Ur Leukocyte Esterase 2+ A, Urine RBC Occasional, Urine WBC 20-50, Ur Squamous Epith Cells 10-20, Urine Bacteria 1+ 12/21/23 05:48: WBC 8.4, RBC 4.90, Hgb 14.3 D, Hct 44.5, MCV 90.8, MCH 29.2, MCHC 32.1, RDW 16.4, Plt Count 199, MPV 8.8, Neut % (Auto) 70.0, Lymph % (Auto) 19.3, [place] % (Auto) 9.9 H, Eos % (Auto) 0.1, Baso % (Auto) 0.6, Neut # (Auto) 5.9, Lymph # (Auto) 1.6, [place] # (Auto) 0.8, Eos # (Auto) 0.0, Baso # (Auto) 0.1, Sodium 139, Potassium 3.3 L, Chloride 108 H, Carbon Dioxide 28, Anion Gap 6.3, BUN 17 D, Creatinine 0.70, Estimated Creat Clear 44, Estimated GFR 80, Est GFR ( Amer) 96, Glucose 86 D, Calcium 9.0, Magnesium 2.3, Total Bilirubin 0.5, AST 23 D, ALT 14 D, Alkaline Phosphatase 75, Total Protein 5.6 L, Albumin 3.2 L D, Globulin 2.4, Albumin/Globulin Ratio 1.3 12/21/23 08:50: Chlamy pneumoniae PCR Not detected, Adenovirus (PCR) Not detected, B. pertussis DNA (PCR) Not detected, Coronavirus OC43 (PCR) Not detected, Coronavirus HKU1 (PCR) Not detected, Coronavirus 229E (PCR) Not detected, SARS-CoV-2 (PCR) Detected A, Coronavirus NL63 (PCR) Not detected, Human Metapneumovir PCR Not detected, Influenza A (H1) PCR Not detected, Influ A (H1N1/09) PCR Not detected, Influenza A (H3) PCR Not detected, Influenza Type A (PCR) Not detected, Influenza Type B (PCR) Not detected, M. pneumoniae (PCR) Not detected, Parainfluenza 1 (PCR) Not detected, Parainfluenza 2 (PCR) Not detected, Parainfluenza 3 (PCR) Not detected, Parainfluenza 4 (PCR) Not detected, RSV (PCR) Not detected, Entero/Rhino (PCR) Not detected I & O for Last 24 hours: Intake & Output 12/18/23 12/19/23 12/20/23 12/21/23 23:59 23:59 23:59 23:59 Intake Total 150 / 150 270 / 270 Output Total 0 / 50 50 / 50 Balance 150 / 100 220 / 220 Weight 72.575 kg 66.723 kg Constitutional Constitutional: no acute distress, chronically ill appearing and cooperative *Routine HEENT Exam Head: Present normocephalic Eye: Present EOMI and PERRL ENT: Present mucous membranes moist *Routine Neck Exam Neck: Present supple; Absent lymphadenopathy *Routine Respiratory Exam Respiratory: Present CTA bilaterally; Absent rhonchi, wheezes or crackles *Routine Cardiovascular Exam Cardiovascular: Present RRR *Routine Abdominal Exam Abdominal: Present soft and normoactive bowel sounds; Absent tenderness *Routine Rectal Exam Patient deferred: visual exam *Routine Exam Patient deferred: external exam *Routine Extremities Exam Extremities: Absent cyanosis, clubbing or edema *Routine Skin Exam Skin: Present warm; Absent rash *Routine Neurological Exam Neurological: Present alert and moving all extremities; Absent altered mental status Comments: Oriented to self, answers questions for her. Stable dementia. Pleasant Results Data Completed and Pending Labs on day of discharge: Labs from last 24 hours 12/21/23 12/21/23 12/20/23 08:50 05:48 19:29 WBC 8.4 RBC 4.90 Hgb 14.3 D Hct 44.5 MCV 90.8 MCH 29.2 MCHC 32.1 RDW 16.4 Plt Count 199 MPV 8.8 Neut % (Auto) 70.0 Lymph % (Auto) 19.3 [place] % (Auto) 9.9 H Eos % (Auto) 0.1 Baso % (Auto) 0.6 Neut # (Auto) 5.9 Lymph # (Auto) 1.6 [place] # (Auto) 0.8 Eos # (Auto) 0.0 Baso # (Auto) 0.1 Sodium 139 Potassium 3.3 L Chloride 108 H Carbon Dioxide 28 Anion Gap 6.3 BUN 17 D Creatinine 0.70 Estimated Creat Clear 44 Estimated GFR 80 Est GFR ( Amer) 96 Glucose 86 D Lactate Calcium 9.0 Magnesium 2.3 Total Bilirubin 0.5 AST 23 D ALT 14 D Alkaline Phosphatase 75 Total Protein 5.6 L Albumin 3.2 L D Globulin 2.4 Albumin/Globulin Ratio 1.3 Urine Color Yellow Urine Appearance Sl cloudy Urine pH 7.0 Ur Specific [place] 1.015 Urine Protein 2+ Urine Glucose (UA) Negative Urine Ketones Negative Urine Blood Trace-i Urine Nitrate Negative Urine Bilirubin Negative Urine Urobilinogen 4.0 Ur Leukocyte Esterase 2+ A Urine RBC Occasional Urine WBC 20-50 Ur Squamous Epith Cells 10-20 Urine Bacteria 1+ Chlamy pneumoniae PCR Not detected Adenovirus (PCR) Not detected B. pertussis DNA (PCR) Not detected Coronavirus OC43 (PCR) Not detected Coronavirus HKU1 (PCR) Not detected Coronavirus 229E (PCR) Not detected SARS-CoV-2 (PCR) Detected A Coronavirus NL63 (PCR) Not detected Human Metapneumovir PCR Not detected Influenza A (H1) PCR Not detected Influ A (H1N1/09) PCR Not detected Influenza A (H3) PCR Not detected Influenza Type A (PCR) Not detected Influenza Type B (PCR) Not detected M. pneumoniae (PCR) Not detected Parainfluenza 1 (PCR) Not detected Parainfluenza 2 (PCR) Not detected Parainfluenza 3 (PCR) Not detected Parainfluenza 4 (PCR) Not detected RSV (PCR) Not detected Entero/Rhino (PCR) Not detected 12/20/23 14:47 WBC RBC Hgb Hct MCV MCH MCHC RDW Plt Count MPV Neut % (Auto) Lymph % (Auto) [place] % (Auto) Eos % (Auto) Baso % (Auto) Neut # (Auto) Lymph # (Auto) [place] # (Auto) Eos # (Auto) Baso # (Auto) Sodium Potassium Chloride Carbon Dioxide Anion Gap BUN Creatinine Estimated Creat Clear Estimated GFR Est GFR ( Amer) Glucose Lactate 1.9 Calcium Magnesium Total Bilirubin AST ALT Alkaline Phosphatase Total Protein Albumin Globulin Albumin/Globulin Ratio Urine Color Urine Appearance Urine pH Ur Specific [place] Urine Protein Urine Glucose (UA) Urine Ketones Urine Blood Urine Nitrate Urine Bilirubin Urine Urobilinogen Ur Leukocyte Esterase Urine RBC Urine WBC Ur Squamous Epith Cells Urine Bacteria Chlamy pneumoniae PCR Adenovirus (PCR) B. pertussis DNA (PCR) Coronavirus OC43 (PCR) Coronavirus HKU1 (PCR) Coronavirus 229E (PCR) SARS-CoV-2 (PCR) Coronavirus NL63 (PCR) Human Metapneumovir PCR Influenza A (H1) PCR Influ A (H1N1/09) PCR Influenza A (H3) PCR Influenza Type A (PCR) Influenza Type B (PCR) M. pneumoniae (PCR) Parainfluenza 1 (PCR) Parainfluenza 2 (PCR) Parainfluenza 3 (PCR) Parainfluenza 4 (PCR) RSV (PCR) Entero/Rhino (PCR) DS: Diagnosis Discharge Diagnosis (1) Coffee ground emesis: Status: Acute Code(s): K92.0 - Hematemesis (2) Intractable nausea and vomiting: Status: Acute Code(s): R11.2 - Nausea with vomiting, unspecified (3) Hypokalemia: Status: Acute Code(s): E87.6 - Hypokalemia (4) Esophageal thickening: Status: Acute Code(s): K22.89 - Other specified disease of esophagus (5) Hypertensive urgency: Status: Acute Code(s): I16.0 - Hypertensive urgency (6) Hyperlipidemia: Status: Chronic Code(s): E78.5 - Hyperlipidemia, unspecified Qualifiers: Hyperlipidemia type: unspecified Qualified Code(s): E78.5 - Hyperlipidemia, unspecified (7) Coronary artery disease: Status: Chronic Code(s): I25.10 - Atherosclerotic heart disease of [place] coronary artery without angina pectoris Qualifiers: Associated angina: without angina Coronary Disease-Associated Artery/Lesion type: [place] artery [place] vs. transplanted heart: [place] heart Qualified Code(s): I25.10 - Atherosclerotic heart disease of [place] coronary artery without angina pectoris (8) Hypertension: Status: Chronic Code(s): I10 - Essential (primary) hypertension Qualifiers: Hypertension type: unspecified Qualified Code(s): I10 - Essential (primary) hypertension (9) Dementia: Status: Acute Code(s): F03.90 - Unspecified dementia, unspecified severity, without behavioral disturbance, psychotic disturbance, mood disturbance, and anxiety (10) COVID: Status: Acute Code(s): U07.1 - COVID-19 Meds Home Medications and Allergies Home Medications ?Medication ?Instructions ?Recorded ?Confirmed ?Type memantine 10 mg tablet 10 mg PO BID 05/06/21 12/20/23 History famotidine 20 mg tablet 20 mg PO DAILY #90 tabs 10/25/23 12/20/23 Rx aspirin 81 mg tablet,delayed 81 mg PO DAILY 12/20/23 12/20/23 History release bisoprolol fumarate 5 mg tablet 2.5 mg PO DAILY 12/20/23 12/20/23 History losartan 50 mg tablet 50 mg PO DAILY 12/20/23 12/20/23 History rosuvastatin 40 mg tablet 40 mg PO HS 12/20/23 12/20/23 History New Prescriptions to Start Prescriptions: Allergies Allergy/AdvReac Type Severity Reaction Status Date / Time No Known Allergies Allergy Verified 12/06/23 13:53 Discharge Plan Disposition Patient Disposition: Home, Self-Care Condition: Fair Follow up Plan Follow up with: Caden Mccormack MD [Staff Physician] - 12/28/23 11:00 am Prescriptions/Medication Reconciliation: Continued famotidine 20 mg tablet 20 mg PO DAILY Qty: 90 1RF memantine 10 mg tablet 10 mg PO BID aspirin 81 mg tablet,delayed release (DR/EC) 81 mg PO DAILY bisoprolol fumarate 5 mg tablet 2.5 mg PO DAILY rosuvastatin 40 mg tablet 40 mg PO HS losartan 50 mg Tablet 50 mg PO DAILY Discontinued Paxlovid 300 mg (150 mg x 2)-100 mg tablets,dose pack 30 tab PO PER PKG DIR Problem Reconciliation Problems Reviewed?: Yes Patient Discharge Instructions ACTIVITY: Continue current activity DIET: continue same diet Patient Instructions: DI for Hypokalemia, Nausea and Vomiting-Adult Print Language: [place] Providers Primary Care Provider: Provider,Referral Admit Provider: Rodríguez Wallace Attending Provider: Rodríguez Wallace
--- NOTE | 2023-12-22 14:59 | CARE MANAGER ---
Contacted patient's related to hospital discharge. Patient was sleeping. He states she is doing better. He is trying to encourage her to drink more fluids. There were no new medications and they deny any questions or concerns at this time. SANTIAGO Wilson
== END 2023-12-21 16:24 | disposition home or self-care (01) ==
LOC: ER 13:04 → 2ND 13:23
PROVIDERS: Emergency Medicine; Admitting Provider Internal Medicine Adolescent Medicine; Emergency Provider Emergency Medicine; Visit Provider Internal Medicine Adolescent Medicine
DX: R82.998 Other abnormal findings in urine (principal); K92.0 Hematemesis; R11.2 Nausea with vomiting, unspecified; E87.6 Hypokalemia; K22.89 Other specified disease of esophagus; I16.0 Hypertensive urgency; E78.5 Hyperlipidemia, unspecified; I25.10 Atherosclerotic heart disease of native coronary artery without angina pectoris; I10 Essential (primary) hypertension; F03.90 Unspecified dementia, unspecified severity, without behavioral disturbance, psychotic disturbance, mood disturbance, and anxiety; U07.1 COVID-19; Z79.899 Other long term (current) drug therapy
CPT/HCPCS: 36415; 70450; 71275; 74174; 80053; 81001; 83605; 83735; 84484; 85007; 85025; 85027; 85610; 85730; 87086; 87088; 87581; 87632; 87635; 87798; 93005; 99285; G0378; J0696; J2405; J2765; J3480; J7120; Q9967; S0028

== ENCOUNTER 2024-04-29 12:39 | Emergency (ER) | payer MEDICARE, OTHER, SELFPAY ==
--- NOTE | 2024-04-29 12:48 | XR_ITS ---
PROCEDURE INFORMATION: Exam: XR Chest Exam date and time: 04/29/2024 12:42 PM Age: 83 years old Clinical indication: Cough and fever TECHNIQUE: Imaging protocol: Radiologic exam of the chest. Views: 2 views. COMPARISON: CT ANGIO CHEST 12/20/2023 8:51 AM FINDINGS: Lungs: Unremarkable. No consolidation. Pleural spaces: Unremarkable. No pleural effusion. No pneumothorax. Heart/Mediastinum: Heart is mildly enlarged, unchanged. Moderate-sized hiatal hernia redemonstrated. Vasculature: Thoracic aorta is tortuous unchanged. Bones/joints: No acute bony abnormalities detected. IMPRESSION: Stable chest. No active disease.
[2024-04-29 14:14] VITALS: BP 174/76; PULSE 79; RESP 22; TEMP 36.7; O2SAT 95; BMI 28.9
--- NOTE | 2024-04-29 14:21 | EXP.UTC ---
Discharge Plan Disposition Patient Disposition: Home, Self-Care Condition: Good Prescriptions Prescriptions: New prednisone 10 mg tablet 10 mg PO DIRECTED 6 Days Qty: 14 0RF Rx Instructions: Take 4 tablets daily for 2 days, then take 2 tablets daily for 2 days, then take 1 tablet daily for 2 days, then stop. benzonatate 100 mg capsule 100 mg PO TIDP PRN (Reason: Cough) Qty: 30 0RF cefdinir 300 mg capsule 300 mg PO BID Qty: 20 0RF No Action furosemide 20 mg tablet 20 mg PO DAILY PRN (Reason: edema) Qty: 30 1RF memantine 10 mg tablet See Rx Instructions .ROUTE .COMPLEX Qty: 180 1RF Dose Instruction: TAKE ONE TABLET BY MOUTH TWICE DAILY Rx Instructions: TAKE ONE TABLET BY MOUTH TWICE DAILY famotidine 20 mg tablet See Rx Instructions .ROUTE .COMPLEX Qty: 90 1RF Dose Instruction: TAKE ONE TABLET BY MOUTH EVERY DAY Rx Instructions: TAKE ONE TABLET BY MOUTH EVERY DAY aspirin 81 mg tablet,delayed release (DR/EC) 81 mg PO DAILY bisoprolol fumarate 5 mg tablet 2.5 mg PO DAILY rosuvastatin 40 mg tablet 40 mg PO HS losartan 50 mg Tablet 50 mg PO DAILY Referrals Follow up/Referrals: Caden Mccormack MD [Primary Care Provider] - See instructions Activity Restrictions/Add. Instructions Additional Instructions/Restrictions: Take tylenol for pain or fever. Take the medications as directed. Follow up with your regular doctor. GO TO THE ER FOR ANY WORSENING SYMPTOMS Clinical Impressions Clinical Impression: Bronchitis Instructions Patient Instructions: Acute Bronchitis, DI for Acute Bronchitis Print Language Print Language: German Discharge ED Provider: Rodríguez Colin [facility] General Stated complaint: cough, fever Mode of Arrival: Ambulatory Source of Information: Patient and Spouse Time Seen by Provider: 04/29/24 14:21 Description of Symptoms (Recalled from Triage Doc. by RN): DRY HACKY COUGH, WORRIED ABOUT HER SBP HEENT Symptoms (Recalled from RN notes): No Resp Symptoms (Recalled from RN notes): Yes Skin Symptoms (Recalled from RN notes): No MS Symptoms (Recalled from RN notes): No Functional Status (Recalled from RN notes): WNL Related Data Home Medications ?Medication ?Instructions ?Recorded ?Confirmed aspirin 81 mg tablet,delayed 81 mg PO DAILY 12/20/23 04/29/24 release bisoprolol fumarate 5 mg tablet 2.5 mg PO DAILY 12/20/23 04/29/24 losartan 50 mg tablet 50 mg PO DAILY 12/20/23 04/29/24 rosuvastatin 40 mg tablet 40 mg PO HS 12/20/23 04/29/24 Previous Rx's ?Medication ?Instructions ?Recorded memantine 10 mg tablet See Rx Instructions .Route 03/02/24 .COMPLEX #180 tabs famotidine 20 mg tablet See Rx Instructions .Route 04/24/24 .COMPLEX #90 tabs furosemide 20 mg tablet 20 mg PO DAILY PRN edema #30 tabs 04/24/24 benzonatate 100 mg capsule 100 mg PO TIDP PRN Cough #30 caps 04/29/24 cefdinir 300 mg capsule 300 mg PO BID #20 caps 04/29/24 prednisone 10 mg tablet 10 mg PO DIRECTED 6 days #14 04/29/24 tabs Allergies Allergy/AdvReac Type Severity Reaction Status Date / Time No Known Allergies Allergy Verified 04/24/24 13:51 Worker's Comp Is this a Worker's Comp case?: No [facility] Disclaimer: The information contained in this section may have been updated after the patient was seen, as this information can be updated by other users. Medical History Dementia TBI (traumatic brain injury) Abnormal electrocardiography Social History Smoking Status: Never smoker alcohol intake: never current occupational status: retired Travel in the last 8 weeks: Inside the [place] household members: spouse housing: house caffeine: Yes Have you lived/traveled outside [place] in past 30 days?: No Contact w/someone who lives/traveled outside [place] past 30 days?: No Exposure to someone with infectious disease in past 14 days?: No Do you have a fever (greater than 100.4 F or 38 C)?: No Have you tested positive for COVID-19: No Exposed to someone with COVID-19 in past 14 days?: No Do you have a sore throat?: No Do you have a cough?: No Do you have any weakness?: No Do you have any diarrhea?: No Are you experiencing any unusual bleeding?: No Do you have any muscle aches/pain?: No Do you have any abdominal pain?: No Are you experiencing loss of taste or smell?: No ROS Obtained: Yes All systems reviewed & no additional complaints except as documented Constitutional Constitutional: Reports poor appetite Eyes Eyes: Reports system reviewed and no additional complaints, except as documented ENT Ears, Nose, Mouth, and Throat: Reports as per HPI Cardiovascular Cardiovascular: Reports system reviewed and no additional complaints, except as documented and Denies chest pain Respiratory Respiratory: Denies shortness of breath, Reports chest congestion, Reports cough, Denies stridor and Denies wheezing Gastrointestinal Gastrointestingal: Reports system reviewed and no additional complaints, except as documented; Denies abdominal pain, diarrhea or vomiting Musculoskeletal Musculoskeletal: Reports system reviewed and no additional complaints, except as documented and Denies arthralgias Integumentary/Breasts Skin/Breast: Reports system reviewed and no additional complaints, except as documented and Denies rash Neurologic Neurologic: Denies paresthesias Allergic/Immunologic Allergic/Immunologic: Denies wheezing Physical Exam General General appearance: alert and in no apparent distress Eye Eye exam: Present normal appearance, PERRL and EOMI ENT ENT exam: Present mucous membranes moist and normal external ear exam Expanded ENT Exam External ear exam: Present normal external inspection TM/Canal exam: Bilateral TM: erythema and bulging Nose exam: Absent sinus tenderness Nasal speculum exam: Bilateral: normal Mouth exam: Present normal external inspection; Absent drooling Teeth exam: Present normal inspection Throat exam: Present tonsillar erythema and tonsillomegaly Neck Neck exam: Present normal inspection, full ROM and trachea midline; Absent tenderness, lymphadenopathy or thyromegaly Chest Chest inspection: Present normal inspection and symmetric chest wall rise; Absent tenderness or rash Respiratory Respiratory exam: Present normal lung sounds bilaterally; Absent respiratory distress, wheezes, stridor or accessory muscle use Cardiovascular Cardiovascular exam: Present regular rate, normal rhythm and normal heart sounds Abdominal Exam Abdominal exam: Present soft; Absent distention, tenderness, guarding, rebound or rigidity Extremities Exam Extremities exam: Present normal inspection, full ROM and normal capillary refill; Absent tenderness or calf tenderness Back Exam Back exam: Present normal inspection and full ROM; Absent tenderness Neurological Exam Neurological exam: Present alert and oriented X3 Psychiatric Psychiatric exam: Present normal affect and normal mood Skin Skin exam: Present warm, dry, intact and normal color Lymphatic Lymphatic Findings: no adenopathy Medical Decision Making Medical Records Medical records reviewed: No I reviewed the patient's medical records. Screening: Per USPSTF and CDC recommendations, given the prevalence of disease in our region, it is our hospital?s policy to screen for HIV and viral Hepatitis for all patients aged 18 and over and those with ongoing risk factors. Be Inquiry Pt receiving controlled substance: No Vital Signs: 04/29/24 14:14 Temperature 98.1 F Temperature Source Oral Pulse Rate [Left Brachial] 79 Respiratory Rate 22 Blood Pressure [Left Arm] 174/76 H Blood Pressure Mean [Left Arm] 108 02 Sat by Pulse Oximetry 95 Orders (Tests/Meds): ORDERS Category Date Time Status Chest XR 2 view (NOT portable) [XR chest 2V] Stat Exams 04/29/24 12:48 Completed
[2024-04-29 14:54] VITALS: BP 174/76; PULSE 79; RESP 22; TEMP 36.7
[2024-04-29 14:58] LABS: Coronavirus 19, PCR Not Detected (NotDetected); Influenza A, PCR Not Detected (NotDetected); Influenza B, PCR Not Detected (NotDetected)
== END 2024-04-29 14:55 | disposition home or self-care (01) ==
PROVIDERS: Emergency Provider Nurse Practitioner Family; PCP Internal Medicine
DX: J20.9 Acute bronchitis, unspecified (principal); R50.9 Fever, unspecified; R05.9 Cough, unspecified
CPT/HCPCS: 71046; 87636; 99212; G0381

== ENCOUNTER 2024-07-13 13:45 | Emergency (ER) | payer MEDICARE, OTHER, SELFPAY ==
[2024-07-13 14:05] VITALS: BP 206/106; PULSE 66; RESP 18; TEMP 36.8; O2SAT 100; BMI 25.7
[2024-07-13 14:13] VITALS: BP 235/105; PULSE 66; O2SAT 96
[2024-07-13 14:14] VITALS: BP 226/97; PULSE 63; O2SAT 97
[2024-07-13 14:18] LABS: Coronavirus 19, PCR Not Detected (NotDetected); Influenza A, PCR Not Detected (NotDetected); Influenza B, PCR Not Detected (NotDetected)
[2024-07-13 14:20] VITALS: BP 170/88
--- NOTE | 2024-07-13 14:32 | ED_ITS ---
<Statement entered by Tabby Machado DO - 07/13/24 15:19> I was consulted by the DE, and we discussed the complexity of the problems being addressed. I approved the treatment and management plan for this patient's care in the emergency department, thus performing a substantive portion of the medical decision making. Tabby Machado DO Discharge Plan Disposition Patient Disposition: Home, Self-Care Condition: Good Prescriptions Prescriptions: No Action losartan 50 mg tablet 75 mg PO DAILY Qty: 45 4RF memantine 10 mg tablet See Rx Instructions .ROUTE .COMPLEX Qty: 180 1RF Dose Instruction: TAKE ONE TABLET BY MOUTH TWICE DAILY Rx Instructions: TAKE ONE TABLET BY MOUTH TWICE DAILY famotidine 20 mg tablet See Rx Instructions .ROUTE .COMPLEX Qty: 90 1RF Dose Instruction: TAKE ONE TABLET BY MOUTH EVERY DAY Rx Instructions: TAKE ONE TABLET BY MOUTH EVERY DAY aspirin 81 mg tablet,delayed release (DR/EC) See Rx Instructions .ROUTE .COMPLEX Qty: 90 1RF Dose Instruction: TAKE ONE TABLET BY MOUTH EVERY MORNING Rx Instructions: TAKE ONE TABLET BY MOUTH EVERY MORNING bisoprolol fumarate 5 mg tablet 2.5 mg PO DAILY rosuvastatin 40 mg tablet 40 mg PO HS Referrals Follow up/Referrals: Caden Mccormack MD [Primary Care Provider] - See instructions Activity Restrictions/Add. Instructions Additional Instructions/Restrictions: Today your evaluated in the emergency department you tested negative for COVID and influenza. Please continue to increase your fluid intake. Take acetaminophen and ibuprofen [id number] for symptomatic relief. Return to the ED for worsening of condition. Follow-up with your PCP within 7 days. Clinical Impressions Clinical Impression: URI (upper respiratory infection) Instructions Patient Instructions: DI for Viral Syndrome Print Language Print Language: Syrian Discharge ED Provider: Tabby Machado General Adult HPI General Chief complaint: Upper Respiratory Infection Stated complaint: cough, body aches Time Seen by Provider: 07/13/24 14:16 Mode of Arrival: Ambulatory Source of Information: Patient and Spouse Limitations: No Limitations Description of Symptoms (Recalled from ER Triage Doc. by RN): Pt presents with spouse for evaluation of cold symptoms. Pt has had a dry cough and congestion on tuesday evening. History of Present Illness HPI narrative: patient is a 83-year-old female PMHx dementia, Alzheimer's who presents to the ED for 2 days of dry cough and congestion with spouse. Has been taking [id number] cough medication at home with minimal relief of symptoms. Related Data Home Medications ?Medication ?Instructions ?Recorded ?Confirmed bisoprolol fumarate 5 mg tablet 2.5 mg PO DAILY 12/20/23 07/13/24 rosuvastatin 40 mg tablet 40 mg PO HS 12/20/23 07/13/24 Previous Rx's ?Medication ?Instructions ?Recorded memantine 10 mg tablet See Rx Instructions .Route 03/02/24 .COMPLEX #180 tabs famotidine 20 mg tablet See Rx Instructions .Route 04/24/24 .COMPLEX #90 tabs aspirin 81 mg tablet,delayed See Rx Instructions .Route 05/25/24 release .COMPLEX #90 tabs losartan 50 mg tablet 75 mg (1.5 x 50 mg) PO DAILY #45 06/07/24 tabs Allergies Allergy/AdvReac Type Severity Reaction Status Date / Time No Known Allergies Allergy Verified 06/07/24 15:01 [facility] Disclaimer: The information contained in this section may have been updated after the patient was seen, as this information can be updated by other users. Medical History Dementia TBI (traumatic brain injury) Abnormal electrocardiography Social History Smoking Status: Never smoker alcohol intake: never current occupational status: retired Travel in the last 8 weeks: [place] the [place] household members: spouse housing: house caffeine: Yes Have you lived/traveled outside [place] in past 30 days?: No Contact w/someone who lives/traveled outside [place] past 30 days?: No Exposure to someone with infectious disease in past 14 days?: No Do you have a fever (greater than 100.4 F or 38 C)?: No Have you tested positive for COVID-19: No Exposed to someone with COVID-19 in past 14 days?: No Do you have a sore throat?: No Do you have a cough?: Yes Do you have any weakness?: No Do you have any diarrhea?: No Are you experiencing any unusual bleeding?: No Do you have any muscle aches/pain?: Yes Do you have any abdominal pain?: No Are you experiencing loss of taste or smell?: No Other Medical History Have you received the Flu Vaccine for this season: No Have you received the Pneumonia Vaccine: No ROS Obtained: Yes Systems reviewed as appropriate & no additional complaints except as documented Physical Exam General General appearance: alert and in no apparent distress Head Head exam: atraumatic and normocephalic Eye Eye exam: Present normal appearance and PERRL ENT ENT exam: Present normal exam Neck Neck exam: Present normal inspection Chest Chest inspection: Present normal inspection and symmetric chest wall rise; Absent tenderness Respiratory Respiratory exam: Present normal lung sounds bilaterally Cardiovascular Cardiovascular exam: Present regular rate Abdominal Exam Abdominal exam: Present soft and normal bowel sounds; Absent tenderness Extremities Exam Extremities exam: Present normal inspection and full ROM Back Exam Back exam: Present normal inspection and full ROM Neurological Exam Neurological exam: Present alert and other (at baseline ) Psychiatric Psychiatric exam: Present normal affect and normal mood Skin Skin exam: Present warm and dry Medical Decision Making Medical Records Screening: Per USPSTF and CDC recommendations, given the prevalence of disease in our region, it is our hospital?s policy to screen for HIV and viral Hepatitis for al l patients aged 18 and over and those with ongoing risk factors. Be Inquiry Pt receiving controlled substance: No Be was queried for this patient: No Vital Signs: 07/13/24 14:05 07/13/24 14:13 07/13/24 14:14 Temperature 98.3 F Temperature Source Oral Pulse Rate 66 63 Pulse Rate [Right] 66 Respiratory Rate 18 Blood Pressure 235/105 H 226/97 H Blood Pressure [Right Arm] 206/106 H Blood Pressure Mean [Right Arm] 139 Blood Pressure Source Blood Pressure Source [Right Arm] Automatic Cuff Blood Pressure Position Blood Pressure Position [Right Arm] Sitting 02 Sat by Pulse Oximetry 100 96 97 Oxygen Delivery Method Room Air Room Air Room Air 07/13/24 14:20 07/13/24 15:36 Temperature 98.4 F Temperature Source Oral Pulse Rate 63 Pulse Rate [Right] Respiratory Rate 18 Blood Pressure 170/88 H 158/78 H Blood Pressure [Right Arm] Blood Pressure Mean [Right Arm] Blood Pressure Source Manual Cuff/ Auscultation Automatic Cuff Blood Pressure Source [Right Arm] Blood Pressure Position Sitting Sitting Blood Pressure Position [Right Arm] 02 Sat by Pulse Oximetry Oxygen Delivery Method Room Air Lab Data Lab Results 07/13/24 14:14: SARS-CoV-2 (PCR) Not detected, Influenza A Untype (PCR) Not detected, Influenza Type B (PCR) Not detected Orders (Tests/Meds): ORDERS Category Date Time Status Rapid PCR Covid and Flu A/B Stat Lab 07/13/24 14:14 Completed Medical Decision Narrative: In summary, patient is a 83-year-old female PMHx dementia, Alzheimer's who presents to the ED for 2 days of dry cough and congestion with spouse. Has been taking oikc-bhe-[id number] cough medication at home with minimal relief of symptoms. Denies any other medical complaints at this time. Upon initial exam, patient is alert, oriented and cooperative. Patient is hemodynamically stable. Physical exam unremarkable, at baseline. Denies fever, chills, body aches, headaches, visual disturbances, chest pain, shortness of breath, productive cough, abdominal pain, nausea, vomiting, dysuria. Differential diagnosis includes pneumonia, COVID, influenza, viral syndrome, among others. Initial workup will be conducted with respiratory swab. I considered additional testing but deferred due to normal physical exam, COVID and influenza were negative, lung sounds clear. Upon repeat evaluation, patient had an acceptable resolution of symptoms. They were ambulatory in the ED. Able to tolerate p.o. Given this, I discussed with patient and spouse that they can continue the dpfb-xrr-pynktac cough medication. May administer acetaminophen and ibuprofen for symptomatic relief as needed. We discussed following up with PCP within 7 days. We discussed return precautions to the ED. Critical Care Critical Care Time Critical Care Time: No
--- NOTE | 2024-07-13 14:35 | PC.NURSE ---
Provided patient with a warm blanket and assisted with repositioning in chair.
[2024-07-13 15:36] VITALS: BP 158/78; PULSE 63; RESP 18; TEMP 36.9; O2SAT 98
== END 2024-07-13 15:37 | disposition home or self-care (01) ==
PROVIDERS: Emergency Provider Emergency Medicine; PCP Internal Medicine
DX: J06.9 Acute upper respiratory infection, unspecified (principal); R05.9 Cough, unspecified; R09.81 Nasal congestion; M79.10 Myalgia, unspecified site
CPT/HCPCS: 87636; 99283

== ENCOUNTER 2024-08-04 10:02 | Emergency (ER) | payer MEDICARE, OTHER, SELFPAY ==
[2024-08-04 10:00] VITALS: BP 210/119; PULSE 63; RESP 12; TEMP 36.8; O2SAT 95; BMI 23.8
--- NOTE | 2024-08-04 10:00 | PC.NURSE ---
pt arrived into room 6 via ems and ER MD at bedside for triage and immediate eval
--- NOTE | 2024-08-04 10:01 | PC.NURSE ---
RAD called at this time
--- NOTE | 2024-08-04 10:02 | PC.NURSE ---
Stroke alert called at this time
--- NOTE | 2024-08-04 10:04 | PC.NURSE ---
pt to RAD at this time
--- NOTE | 2024-08-04 10:05 | PC.NURSE ---
Dr Casillas at bedside
--- NOTE | 2024-08-04 10:06 | HMH.EDGENADL ---
Discharge Plan Disposition Patient Disposition: Xfer Other Prescriptions Prescriptions: No Action losartan 50 mg tablet 75 mg PO DAILY Qty: 45 4RF memantine 10 mg tablet See Rx Instructions .ROUTE .COMPLEX Qty: 180 1RF Dose Instruction: TAKE ONE TABLET BY MOUTH TWICE DAILY Rx Instructions: TAKE ONE TABLET BY MOUTH TWICE DAILY famotidine 20 mg tablet See Rx Instructions .ROUTE .COMPLEX Qty: 90 1RF Dose Instruction: TAKE ONE TABLET BY MOUTH EVERY DAY Rx Instructions: TAKE ONE TABLET BY MOUTH EVERY DAY aspirin 81 mg tablet,delayed release (DR/EC) See Rx Instructions .ROUTE .COMPLEX Qty: 90 1RF Dose Instruction: TAKE ONE TABLET BY MOUTH EVERY MORNING Rx Instructions: TAKE ONE TABLET BY MOUTH EVERY MORNING amoxicillin 400 mg/5 mL suspension for reconstitution 1,000 mg PO BID Qty: 375 0RF bisoprolol fumarate 5 mg tablet 2.5 mg PO DAILY rosuvastatin 40 mg tablet 40 mg PO HS Clinical Impressions Clinical Impression: Acute CVA (cerebrovascular accident) Stand Alone Forms Stand Alone Forms: Transfer Record - ED Print Language Print Language: Serbian Discharge ED Provider: Ivory Casillas General Adult HPI General Stated complaint: FALL Time Seen by Provider: 08/04/24 10:05 History of Present Illness HPI narrative: 83-year-old brought in today for concerns for an acute stroke. She is accompanied by her is at the bedside. She was last seen normal at 8 AM left the home and came back and found her in the state. She was acutely altered not moving her left upper extremity from historical standpoint and having difficulty speaking. She is normally alert oriented answering questions has some mild dementia but no other significant past medical problems. Not on any anticoagulation she does take a daily aspirin. No further history able to be obtained from the patient. She was stable en route. Brought in by EMS. Related Data Home Medications ?Medication ?Instructions ?Recorded ?Confirmed bisoprolol fumarate 5 mg tablet 2.5 mg PO DAILY 12/20/23 07/16/24 rosuvastatin 40 mg tablet 40 mg PO HS 12/20/23 07/16/24 Previous Rx's ?Medication ?Instructions ?Recorded memantine 10 mg tablet See Rx Instructions .Route 03/02/24 .COMPLEX #180 tabs famotidine 20 mg tablet See Rx Instructions .Route 04/24/24 .COMPLEX #90 tabs aspirin 81 mg tablet,delayed See Rx Instructions .Route 05/25/24 release .COMPLEX #90 tabs losartan 50 mg tablet 75 mg (1.5 x 50 mg) PO DAILY #45 06/07/24 tabs amoxicillin 400 mg/5 mL oral 1,000 mg (12.5 mL) PO BID #375 mL 07/18/24 suspension Allergies Allergy/AdvReac Type Severity Reaction Status Date / Time No Known Allergies Allergy Verified 07/16/24 14:38 [facility] Disclaimer: The information contained in this section may have been updated after the patient was seen, as this information can be updated by other users. Medical History Dementia TBI (traumatic brain injury) Abnormal electrocardiography Social History Smoking Status: Never smoker alcohol intake: never current occupational status: retired Travel in the last 8 weeks: Inside the [place] household members: spouse housing: house caffeine: Yes Have you lived/traveled outside US in past 30 days?: No Contact w/someone who lives/traveled outside US past 30 days?: No Exposure to someone with infectious disease in past 14 days?: No Do you have a fever (greater than 100.4 F or 38 C)?: No Have you tested positive for COVID-19: No Exposed to someone with COVID-19 in past 14 days?: No Do you have a sore throat?: No Do you have a cough?: No Do you have any weakness?: No Do you have any diarrhea?: No Are you experiencing any unusual bleeding?: No Do you have any muscle aches/pain?: No Do you have any abdominal pain?: No Are you experiencing loss of taste or smell?: No Other Medical History Have you received the Flu Vaccine for this season: No Have you received the Pneumonia Vaccine: Yes ROS Obtained: Yes All systems reviewed & no additional complaints except as documented Physical Exam General General appearance: alert Respiratory Respiratory exam: Present normal lung sounds bilaterally Cardiovascular Cardiovascular exam: Present regular rate Neurological Exam Neurological exam: Present alert and other (Patient with an expressive aphasia having difficulty speaking and repeating but does follow some commands she has left upper extremity weakness and what appears to be significant aphasia NIH stroke scale of 5 on my evaluation); Absent oriented X3 Medical Decision Making Medical Records Screening: Per USPSTF and CDC recommendations, given the prevalence of disease in our region, it is our hospital?s policy to screen for HIV and viral Hepatitis for all patients aged 18 and over and those with ongoing risk factors. Be Inquiry Pt receiving controlled substance: No Vital Signs: 08/04/24 10:24 Blood Pressure 210/105 H Lab Data Lab results reviewed: Yes I reviewed the patient's lab results. Lab Results 08/04/24 09:45: WBC 5.1, RBC 5.04, Hgb 14.6, Hct 45.0, MCV 89.3, MCH 29.0, MCHC 32.4, RDW 14.1, Plt Count 234, MPV 9.2, Neut % (Auto) 52.0, Lymph % (Auto) 38.1, [place] % (Auto) 7.9, Eos % (Auto) 1.0, Baso % (Auto) 0.8, Neut # (Auto) 2.6, Lymph # (Auto) 1.9, [place] # (Auto) 0.4, Eos # (Auto) 0.1, Baso # (Auto) 0.0 08/04/24 09:45 Orders (Tests/Meds): ED MEDICATIONS Generic Name Dose Route Start Last Admin Trade Name Freq PRN Reason Stop Dose Admin Lactated Ringer's 1,000 mls @ 999 mls/hr 08/04/24 10:09 Lactated Ringer's 1000 Ml Bag IV 08/04/24 11:09 .Q1H1M ONE Sodium Chloride 10 ml 08/04/24 10:09 Sodium Chloride 0.9% 10ml Flush Syringe IV 09/03/24 10:08 NEEDED PRN Maintain IV Site Discontinued Medications Generic Name Dose Route Start Last Admin Trade Name Freq PRN Reason Stop Dose Admin Labetalol HCl 10 mg 08/04/24 10:20 08/04/24 10:24 Labetalol 20mg/4ml Syringe IV 08/04/24 10:21 10 mg ONCE ONE Administration Tenecteplase 17 mg 08/04/24 10:09 Tenecteplase 50mg Vial IV 08/04/24 10:10 ONCE ONE ORDERS Category Date Time Status CT angio head Stat Cat Scan 08/04/24 10:[address] angio neck Stat Cat Scan 08/04/24 10:[address] head/brain wo con Stat Cat Scan 08/04/24 10:09 Completed Activated Partial Thrombo Time Stat Lab 08/04/24 09:45 Received Complete Blood Count Auto Diff Stat Lab 08/04/24 09:45 Completed Comprehensive Metabolic Panel Stat Lab 08/04/24 09:45 Received Drug Screen,Urine Stat Lab 08/04/24 10:09 Ordered Ethyl Alcohol Stat Lab 08/04/24 09:45 Received Lipid Panel Stat Lab 08/04/24 09:45 Received Prothrombin Time INR Stat Lab 08/04/24 09:45 Received Troponin I Q3H Lab 08/04/24 13:15 Ordered Troponin I Q3H Lab 08/04/24 16:15 Ordered Troponin I Stat Lab 08/04/24 09:45 Received Urinalysis and Microscopic Stat Lab 08/04/24 10:09 Ordered ECG Request Stat Y 08/04/24 10:09 Ordered Medical Decision Narrative: 83-year-old presenting today with debilitating symptoms including changes in mental status significant aphasia and left upper extremity weakness. NIH stroke scale of 5 on my evaluation. Patient has been stroke alerted she is likely a thrombolytics candidate. She is in the CT scanner immediately we are sharing images with [facility]. After reviewing checklist for thrombolytics it was discovered that the patient had a skull fracture with a subdural and a traumatic subarachnoid hemorrhage in 2016 making her not a candidate. She had been given blood pressure medication in anticipation of giving her thrombolytics but we have held off on giving her thrombolytics at the moment. I discussed the case with the stroke team at [facility] who agreed with this plan. They will call back if they change that management. We will be flying her noncontrasted CT scan of the head did not demonstrate an intracranial hemorrhage. No LVO for my personal interpretation. Patient will be flown to [facility] for assessment of further intervention. Family does not fact want her to be transferred. They understand that she is not a tPA or TNK candidate at the moment. She was accepted by Dr. Tinoco given the fact that she is not a thrombolytics candidate was not and will not be going to the ICU. Critical Care Critical Care Time Critical Care Time: Yes Attestation: On , the high probability of a clinically significant, sudden or life threatening deterioration of the following system(s) required my full and direct attention, intervention and personal management. The time I documented below is in addition to time spent performing reported procedures but includes the following listed in this critical care notation. Total Time Total Critical Care Time: 35
--- NOTE | 2024-08-04 10:09 | CT_ITS ---
PROCEDURE INFORMATION: Exam: CT Head Without Contrast Exam date and time: 08/04/2024 10:11 AM Age: 83 years old Clinical indication: Stroke-like symptoms; Speech disturbance; Additional info: Possible stroke- aphasia lue weakness TECHNIQUE: Imaging protocol: Computed tomography of the head without contrast. Radiation optimization: All CT scans at this facility use at least one of these dose optimization techniques: automated exposure control; mA and/or kV adjustment per patient size (includes targeted exams where dose is matched to clinical indication); or iterative reconstruction. Other technique: STROKE PROTOCOL was implemented. COMPARISON: CT HEAD/BRAIN WO CON 12/20/2023 8:47 AM FINDINGS: Brain: Periventricular white matter changes. No large territorial infarct, mass effect or midline shift Cerebral ventricles: No ventriculomegaly. Paranasal sinuses: Visualized sinuses are unremarkable. No fluid levels. Mastoid air cells: Visualized mastoid air cells are well aerated. Bones: Unremarkable. No acute fracture. Soft tissues: Unremarkable. IMPRESSION: Periventricular white matter changes. No large territorial infarct hemorrhage mass effect or midline shift ASSESSMENT: ASPECTS ([place] [facility]roke [facility] Early CT Score) is 10.
--- NOTE | 2024-08-04 10:09 | CT_ITS ---
PROCEDURE INFORMATION: Exam: CTA Neck With Contrast Exam date and time: 08/04/2024 10:14 AM Age: 83 years old Clinical indication: Stroke-like symptoms; Altered mental status/memory loss; Additional info: Possible stroke- aphasia lue weakness TECHNIQUE: Imaging protocol: Computed tomographic angiography of the neck with contrast. Exam focused on the cervical segments of the vasculature. 3D rendering (Not supervised by radiologist): MIP and/or 3D reconstructed images were created by the technologist. Radiation optimization: All CT scans at this facility use at least one of these dose optimization techniques: automated exposure control; mA and/or kV adjustment per patient size (includes targeted exams where dose is matched to clinical indication); or iterative reconstruction. Contrast material: ISOVUE; Contrast volume: 80 ml; Contrast route: INTRAVENOUS (IV); COMPARISON: CT ANGIO NECK 10/19/2023 9:49 AM FINDINGS: Right common carotid artery: No stenosis. No dissection or occlusion. Right internal carotid artery: No stenosis of the extracranial segment. No dissection or occlusion. Right external carotid artery: No occlusion or stenosis of the origin. Left common carotid artery: No stenosis. No dissection or occlusion. Left internal carotid artery: No stenosis of the extracranial segment. No dissection or occlusion. Left external carotid artery: No occlusion or stenosis of the origin. Right vertebral artery: Diminutive right vertebral artery which is occluded distally. Left vertebral artery: No stenosis. No dissection or occlusion. Soft tissues: Left breast implant in place. Bones/joints: No acute fracture. 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 REFERENCES: NASCET CRITERIA. The degree of stenosis in the cervical segment of the internal carotid artery is based on NASCET criteria. Normal is no stenosis. Mild is less than 50% stenosis. Moderate is 50-69% stenosis. Severe is 70% to 99% stenosis. Total occlusion is no detectable patent lumen.
--- NOTE | 2024-08-04 10:09 | CT_ITS ---
PROCEDURE INFORMATION: Exam: CTA Head With Contrast, Arteriography Exam date and time: 08/04/2024 10:14 AM Age: 83 years old Clinical indication: Stroke-like symptoms; Altered mental status/memory loss; Additional info: Possible stroke- aphasia lue weakness TECHNIQUE: Imaging protocol: Computed tomographic angiography of the head with contrast. Exam focused on the arteries. 3D rendering (Not supervised by radiologist): MIP and/or 3D reconstructed images were created by the technologist. Radiation optimization: All CT scans at this facility use at least one of these dose optimization techniques: automated exposure control; mA and/or kV adjustment per patient size (includes targeted exams where dose is matched to clinical indication); or iterative reconstruction. Contrast material: ISOVUE; Contrast volume: 80 ml; Contrast route: INTRAVENOUS (IV); COMPARISON: CT ANGIO HEAD 10/19/2023 9:49 AM FINDINGS: ANTERIOR CIRCULATION: Right internal carotid artery: Intracranial segment is patent with no significant stenosis. No aneurysm. Right middle cerebral artery: No occlusion or significant stenosis. No aneurysm. Right anterior cerebral artery: No occlusion or significant stenosis. No aneurysm. Left internal carotid artery: Intracranial segment is patent with no significant stenosis. No aneurysm. Left middle cerebral artery: No occlusion or significant stenosis. No aneurysm. Left anterior cerebral artery: No occlusion or significant stenosis. No aneurysm. POSTERIOR CIRCULATION: Right vertebral artery: Occluded distal right vertebral artery. Left vertebral artery: No occlusion or significant stenosis. No aneurysm. Basilar artery: No occlusion or significant stenosis. No aneurysm. Right posterior cerebral artery: No occlusion or significant stenosis. No aneurysm. Left posterior cerebral artery: No occlusion or significant stenosis. No aneurysm. Brain: No definite mass, mass effect, or midline shift. Cerebral ventricles: No ventriculomegaly. Bones/joints: Unremarkable. No acute fracture. Soft tissues: Unremarkable. IMPRESSION: Occluded distal right vertebral artery. The remainder of the intracranial vasculature appears patent. The right posterior cerebral artery is fed from the anterior circulation
--- NOTE | 2024-08-04 10:09 | PC.NURSE ---
calling [facility] [employer] to check flight
--- NOTE | 2024-08-04 10:12 | PC.NURSE ---
reaching out to [facility] 28 minute eta, placed them on standby if accepted until we have an accepting facility
--- NOTE | 2024-08-04 10:15 | PC.NURSE ---
DR CANDELARIO AT BEDSIDE
--- NOTE | 2024-08-04 10:16 | PC.NURSE ---
calling [facility] at this time
--- NOTE | 2024-08-04 10:17 | PC.NURSE ---
[facility] accepted flight
--- NOTE | 2024-08-04 10:18 | PC.NURSE ---
dr parish is speaking to [facility] at this time
[2024-08-04 10:19] LABS: Basophils % 0.8 % (0.1-2.0); Eosinophils # 0.1 K/mm3 (0.0-0.4); Hemoglobin 14.6 g/dL (12.2-16.2); Lymphocytes # 1.9 K/mm3 (0.7-4.5); Lymphocytes % 38.1 % (10-50); Mean Corpuscular HGB Conc 32.4 g/dL (31.8-35.4); Mean Corpuscular Volume 89.3 fl (81-99); Mean Platelet Volume 9.2 fl (7.4-10.4); Monocytes # 0.4 K/mm3 (0.1-1.0); Monocytes % 7.9 % (1.7-9.3); Neutrophils # 2.6 K/mm3 (1.8-7.8); Platelet Count 234 K/mm3 (142-424); Red Blood Count 5.04 M/mm3 (4.20-5.40); Red Cell Distribution Width 14.1 % (11.5-17.5); White Blood Count 5.1 K/mm3 (4.8-10.8)
--- NOTE | 2024-08-04 10:20 | PC.NURSE ---
DR TATE AT [facility] ACCEPTS PT
[2024-08-04 10:24] VITALS: BP 210/105
[2024-08-04] MEDS: LABETALOL 20MG/4ML SYRINGE 10 MG IV (10:24)
[2024-08-04 10:26] LABS: Alanine Aminotransferase 17 U/L (12-78); Albumin Level 3.7 g/dl (3.5-5.0); Albumin/Globulin Ratio 1.5 (1.1-1.8); Alkaline Phosphatase 69 U/L (38-126); Anion Gap 6.7 mEq/L (5-15); Aspartate Amino Transferase 22 U/L (14-36); Bilirubin,Total 0.6 mg/dl (0.2-1.3); Blood Urea Nitrogen 9 mg/dl (7-17); Calcium 9.5 mg/dl (8.4-10.2); Carbon Dioxide 33 mmol/L (22.0-30.0); Chloride 102 mmol/L (98-107); Chol/HDL Ratio 3.4 (1-3.5); Cholesterol 140 mg/dl (140-200); Estimated Glomerular Filt Rate 95 ml/min (>60); GFR (African American) 115 ML/MIN (>60); Globulin 2.4 g/dL (1.3-3.2); Glucose 111 mg/dl (74-100); HDL Cholesterol 41 mg/dl (40-60); Sodium 139 mmol/L (136-145); Total Protein,Serum 6.1 g/dl (6.3-8.2); Triglycerides 99 mg/dl (30-150); VLDL Cholesterol 20 mg/dL (0-40)
[2024-08-04 10:27] LABS: Activated Partial Thrombo Time 23.9 seconds (22.8-30.6); Ethyl Alcohol < 10 mg/dl (0-10); Potassium 2.7 mmoL/L (3.5-5.1); Prothrombin Time 11.2 seconds (10.1-12.5)
--- NOTE | 2024-08-04 10:28 | PC.NURSE ---
CRITICAL K+ 2.7, PT NAME AND AND R/V. DR CANDELARIO NOTIFIED
--- NOTE | 2024-08-04 10:28 | PC.NURSE ---
pt back from [facility] @ this time
[2024-08-04] MEDS: SODIUM CHLORIDE 0.9% 10ML SYR (RAD ONLY) 10 ML IV (10:34)
[2024-08-04] MEDS: 0.9 % SODIUM CHLORIDE 50 ML VIAL IV (10:34)
[2024-08-04] MEDS: IOPAMIDOL-370 (76%);100ML BOTTLE 100 ML IV (10:34)
[2024-08-04 10:37] LABS: Direct LDL Cholesterol 65.34 mg/dL (100-129)
--- NOTE | 2024-08-04 10:40 | ECG_ITS ---
APPROVED REPORT Exam: Resting ECG HR:63 bpm ECG Measurements Heart Rate 63 AXES AR 184 P 77 QRSd 93 QRS 57 QT 432 T 68 QTc 439 Conclusion SINUS RHYTHM POSSIBLE ANTERIOR MYOCARDIAL INFARCTION , OF INDETERMINATE AGE [30 ms Q WAVE IN V3/V4, OR R < 0.2 mV IN V4] POSSIBLE INFERIOR MYOCARDIAL INFARCTION , PROBABLY OLD [30 ms Q WAVE IN II/aVF] ABNORMAL ECG UNCONFIRMED REPORT Electronically signed by : Rodríguez Casillas, 08/04/2024 13:44:16
[2024-08-04 10:41] LABS: Troponin I < 0.01 ng/ml (0.00-0.034)
[2024-08-04 10:44] VITALS: BP 213/117; PULSE 61; RESP 19; O2SAT 97
[2024-08-04] MEDS: LACTATED RINGERS 1000ML 1,000 ML 999 ML IV (10:49)
[2024-08-04] MEDS: KCl 10mEq/100ml 100 ML 100 MEQ IV (10:49)
--- NOTE | 2024-08-04 10:54 | PC.NURSE ---
[facility] CALLED WITH BED ASSIGNMENT PT IS GOING TO ROOM 302 S ON 3F TELE AT [facility]. Vivi BROWN IS CALLING REPORT TO MARÍA HENDERSON AWARE. [employer] AWARE.
--- NOTE | 2024-08-04 10:58 | PC.NURSE ---
DR CANDELARIO IS SPEAKING WITH [facility] AT THIS TIME
[2024-08-04 11:01] VITALS: BP 225/109; PULSE 64; RESP 13; O2SAT 95
--- NOTE | 2024-08-04 11:03 | PC.NURSE ---
CALLED [employer] [facility] TO CHECK ON FLIGHT THEY STATED [place] [facility] ISNT TAKING THE FLIGHT NOW AND IT WILL BE [place] [facility] NOW. WILL NOTIFY WHEN THEY LIFT OFF
--- NOTE | 2024-08-04 11:28 | PC.NURSE ---
[facility] here to transfer pt at this time
[2024-08-04 11:32] VITALS: BP 225/110; PULSE 70; RESP 20; TEMP 36.8; O2SAT 94
== END 2024-08-04 11:42 | disposition other institution (70) ==
PROVIDERS: Emergency Provider Student in an Organized Health Care Education/Training Program
DX: I63.9 Cerebral infarction, unspecified (principal); R41.82 Altered mental status, unspecified; R47.01 Aphasia; R53.1 Weakness
CPT/HCPCS: 70450; 70496; 70498; 80053; 80061; 80320; 84484; 85025; 85610; 85730; 93005; 96374; 99291; J1920; J3480; J7120; Q9967

== ENCOUNTER 2024-09-13 02:18 | Emergency (ER) | payer MEDICARE, OTHER, SELFPAY ==
[2024-09-13] VITALS (8 sets, daily range): BP systolic 115–156; BP diastolic 59–75; PULSE 67–84; RESP 12–20; TEMP 36.7; O2SAT 92–98; BMI 24.3
--- OUTSIDE RECORDS SUMMARY | 2024-09-13 02:22 | XMS_ITS | Data Portability ---
Author Organization [facility] Address [address] [place] [address] Assessment Encounter Date Assessment Date Assessment LastModified by Organization Details LastModified Time 09/15/2017 09/15/2017 1. Recent Fall 08/26/17 2. Concussion 08/26/17 3. Memory impairment, onset antedates concussion Plan 1.she is still improving from the concussion. I discussed with patient and family that it would be useful if we met again in one month that I could further evaluate her memory and conduct office-based screening with many mental status exam or Montr??al cognitive assessment exam.n 2. no further testing needed; no new mediations started at this time. I spent 30 minutes with patient, and daughter, the majority of the time reviewing MRI and discussing the results and further discussion regarding her ongoing recovery from concussion. I also discussed the fact that she had memory impairment prior to this concussion. I discussed the need for further evaluation at least after another month of healing. Greater than 50% of time counseling [email or web address] Not available 09/22/2017 20:03:26 11/09/2017 11/09/2017 1. Concussion 08/26/17 2. Post concussive syndrome, improved yet still some memory impairment 3. Steadily improving function at home; family says 90 % returned to function 4. Memory impairment; family says this predated fall and worsened with slow improvement occur Plan 1. She is much better and still improving 2. I advised continue all household and jainism and community activities 3. Because memory loss was evident before concussion, I proposed continue healing; see me again in late summer to re-evaluate memory impairment 4. All issues discussed with patient and family; they are very pleased with her ongoing recovery [email or web address] Not available 11/16/2017 07:06:14 01/12/2018 01/12/2018 1. Memory loss 2. Household functions are going well 3. Kitchen management is going well 4. Forgetful on placement of items today will start Namzaric Note: and each rmind me that memory trouble preceded head trauma with fall from car seat. I spoke today that we do not have a test that can objectively verify the cause of memory loss. I spoke that A possibility is conrad Alzheimer disease but no test exists to resolve that question. will continue with empiric use of meds. Plan 1. Today stop donepezil 2. Monday 01/15 start Namzaric sample [email or web address] LOT #[id number] EXP. 03/2018 3. After 4 weeks of sample Namzaric, then by prescription. laurel Namzaric lot number [id number] exp 03/2018 i sent Rx for Namzaric recheck here in 3 months I spent 45 minutes with patient and , > 50 % of time counseling Not available 01/20/2018 08:45:44 03/13/2018 03/13/2018 1. Resolved memory loss, due to concussion 2. Resolved sequelae of concussion, due to closed head trauma 08/26/17 3. Intolerant to Namzaric, medicine was stopped due to GI upset sx Plan 1. Patient is recovered, returned to her baseline mentation 2. She will stay off donepezil and Namzaric 3. No further testing needed 4. she will return in 6 months, sooner if needed [email or web address] Not available 03/20/2018 21:53:38 09/11/2018 09/11/2018 Assessment: 1. Memory Impairment 2. Probable minimal cognitive impairment 3. I advised family that no technology exists to identify if this is early neurodegenerative disease 4. Daughter is hopeful that prognosis and future planning can be established 5. I advised hiring help to come into home could be benefit; patient is opposed.there are two separate impairments of memory; I spoke that Dr. ness had sais to me in prior year that he observed some mild changes of mentation prior to the head trauma. Family did not comment if they had seen any memory or executive impairments in year prior to head trauma. 6. I advised that head trauma in prior year added memory and logic impairment, yet she has improved over recent year, but she has not recovered to her baseline status as she was prior to head trauma Plan: 1. I started memantine 10 mg x 1 pill in am FOR 1 MONTH, then 1 pill bid thereafter 2. I have not scheduled follow up visit; they follow regularly with Dr. Ness in [place] I spent 40 minutes with patient and family [email or web address] Not available 09/12/2018 07:12:26 Plan of Treatment Reminders Order Date Submit Date Provider Last Modified By Organization Details Last Modified Time Details Appointments None recorded. Lab None recorded. Referral None recorded. Procedures None recorded. Surgeries None recorded. Imaging None recorded. Medication Orders memantine 10 mg tablet 2018 019 [email or web address] [facility], [address] [place] [address], [address], [place], [address], 9 13:25:22 Patient TargetsNo targets recorded. Patient Instructions Encounter Date Encounter Id Patient Instructions Last Modified By Organization Details Last Modified Time 09/15/2017 [id number] postconcussion syndrome: care instructions [email or web address] Not available 09/22/2017 20:03:53 11/09/2017 [id number] postconcussion syndrome: care instructions [email or web address] Not available 11/11/2017 14:57:35 concussion: care instructions [email or web address] Not available 11/16/2017 07:06:39 BLOOD PRESSURE WILL BE RECHECKED AT NEXT OFFICE VISIT Not available 11/09/2017 10:55:33 03/13/2018 [id number] postconcussion syndrome: care instructions [email or web address] Not available 03/20/2018 21:54:02 09/11/2018 [id number] eating healthy foods: care instructions Not available 09/12/2018 13:25:22 high blood pressure: care instructions [email or web address] Not available 09/12/2018 13:25:22 Reason for Referral None Reported. Results Created Date Observation Date Name Description Value Unit Range Abnormal Flag Note LastModifiedBy Organization Detail LastModifiedTime 09/16/19 18 09/15/2017 MRI, brain , w/o contr ast Guilherme veronica [facility] [address] [place] [address] [place] [address] Michelle t Name: ZENAIDA marsh : [address] 4 Orderi [facility] er: ZO FRANK EXAM DATE: 2017 EXAM: MR BRAIN W/O CONTRA ST HISTOR Y: 76-yea r-old female with head pain and memory loss follow ing a fall. COMPAR FELICITAS: None. FINDIN GS: The ventri cles are symmet ruperto, and mildly enlarg ed.. There is no mass, mass effect , or midlin e shift. There is no abnorm al extra- axial fluid, acute intrac ranial hemorr gab, or infarc tion. The diffus ion weight ed sequen tammy are normal . There are mild perive ntricu lar white matter change s. There is indist inct perive ntricu lar and subcor tical white matter lesion s. There is a possib le puncta te old intrap arench ymal hemorr gab in the right pariet al lobe. The design intern al caroti d and basila r flow-v oids are normal . There is minima l mucosa l thicke orion in the parana ruben sinuse s. The patien t is status post bilate ral catara ct surger y. IMPRES SOLE: 1. There is mild diffus e cerebr al atroph y and nonspe cific white matter change s in the brain. No acute intrac ranial abnorm ality is identi fied. Interp reted By: Catherine ramsay MD Electr onical ly Signed By: Catherine ramsay MD on 09/16/19 18 12:45 PM [facility] Radiology [facility] [address] [place], [address], 09/15/2017 14:43:48 Result Notes None recorded. 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 Procedures Surgical History Date Name Laterality Status Provider Name and Address Organization Details Recorded Time Tonsillectomy completed Juan Franciscokelli Easton [facility] 09/01/2017 09:37:47 Imaging Results Imaging Date Name Status LastModified by Organiz ation Details LastModified Time 09/15/2017 MRI, brain, w/o contrast completed [facility] Radiology [facility] [address] [place], [address], 09/15/2017 14:43:48 Procedure Notes None recorded. Medical Equipment None Reported. Allergies No known drug allergies Medications Name Sig Start Date Stop Date Status Note LastModified by Organization Details LastModified Time atorvasta tin 40 mg tablet Bedtime active Not Available Not Available Not Available azithromy wally 250 mg tablet 09/01 completed Not Available Not Available Not Available hydrocodo ne 5 mg-acetam inophen 325 mg tablet 09/11 completed Not Available Not Available Not Available donepezil 10 mg tablet Take 1/2 tab in AM for one month. Then 1 whole in the AM therefte r. 09/11 completed Not Available Not Available Not Available ondansetr on HCl 4 mg tablet 09/11 completed Not Available Not Available Not Available ciproflox acin 250 mg tablet 09/01 completed Not Available Not Available Not Available tramadol 50 mg tablet 09/11 completed Not Available Not Available Not Available bisoprolo l fumarate 5 mg tablet Daily active Not Available Not Available Not Available Nitrostat 0.4 mg sublingua l tablet As needed 09/11 completed Duration : 10 days;Ins truction s: every 5 minutes prn for chest pain;Dutch quency: prn;Medi cation Descript ion: nitrogly cerin; Dosage:a s directed ; Route:barry blingual ; refills: 0; Quantity :3 tablet Not Available Not Available Not Available hydrocodo ne 7.5 mg-acetam inophen 325 mg tablet 09/01 completed Not Available Not Available Not Available losartan 25 mg tablet TAKE ONE TABLET BY MOUTH EVERY DAY Rfs rem none active Not Available Not Available No t Available aspirin 81 mg tablet Daily active Duration : 30 days;Dutch quency: daily;Me dication Descript ion: aspirin; Dosage:1 ; Route:or al; refills: 0; Quantity :30 tablet Not Available Not Available Not Available mupirocin 2 % topical ointment 09/11 completed Not Available Not Available Not Available azelastin e 137 mcg (0.1 %) nasal spray 09/01 completed Not Available Not Available Not Available fluticaso ne propionat e 50 mcg/actua tion nasal spray,ciaran pension active Not Available Not Available Not Available amoxicill in 875 mg-potass ium clavulana te 125 mg tablet 09/11 completed Not Available Not Available Not Available Bactrim 400 mg-80 mg tablet Two times a day 09/01 completed Duration : 7 days;Dutch quency: bid;Medi cation Descript ion: sulfamet hoxazole -trimeth oprim; Route:or al; refills: 0; Quantity :14 tablet Not Available Not Available Not Available Zetia 10 mg tablet Daily 09/01 completed Duration : 30 days;Dutch quency: daily;Me dication Descript ion: ezetimib e; Dosage:1 /2; Route:or al; refills: 11; Quantity :30 tablet Not Available Not Available Not Available rosuvasta tin 20 mg tablet Take 1 tablet every day by oral route. active Not Available Not Available No t Available memantine 10 mg tablet 1 tab QAM x 1 month, then 1 QAM and at supper thereaft er 2018 active Not Available Not Available Not Avai lable duloxetin e 30 mg capsule,d elayed release Daily 09/11 completed Not Available Not Available Not Available vitamin A active Not Available Not Maria Luisa ilable Not Available Ocuvite Lutein Daily 09/01 completed Frequenc y: daily;Me dication Descript ion: multivit corona with minerals ; Dosage:1 ; Route:or al; refills: 0 Not Available Not Available Not Available vitamin B comp and C no.3 active Not Available Not Available Not Available Dexilant 60 mg capsule, delayed release active Not Available Not Available Not Available Namzaric 28 mg-10 mg capsule sprinkle, extended release 1 Tab PO daily. 02/08 completed Not Available Not Available Not Available Fluzone High-Dose [id number] (PF) 180 mcg/0.5 mL intramusc ular syringe 09/01 completed Not Available Not Available Not Available Shingrix (PF) 50 mcg/0.5 mL intramusc ular suspensio n, kit 09/11 completed Not Available Not Available Not Available Vitals Date Recorded Body height Body mass index (BMI) Body weight Systolic blood pressure Diastolic blood pressure Provider Name and Address Organization Details Last Updated DateTime 09/15/2017 154.94 cm 30.6 kg/m2 09231.96 g 116 mm[Hg] 80 mm[Hg] Nafisa Alicea [facility] 8 13:23:30 Date Recorded Body height Body mass index (BMI) Body weight Systolic blood pressure Diastolic blood pressure Provider Name and Address Organization Details Last Updated DateTime 11/09/2017 154.94 cm 30.4 kg/m2 48662.37 g 152 mm[Hg] 78 mm[Hg] Angela Boo [facility] 8 10:53:23 Date Recorded Body height Body mass index (BMI) Body weight Systolic blood pressure Diastolic blood pressure Provider Name and Address Organization Details Last Updated DateTime 01/12/2018 154.94 cm 29.3 kg/m2 17636.82 g 140 mm[Hg] 82 mm[Hg] Milana Aguilar [facility] 8 15:21:06 Date Recorded Body height Body mass index (BMI) Body weight Systolic blood pressure Diastolic blood pressure Provider Name and Address Organization Details Last Updated DateTime 03/13/2018 154.94 cm 29.9 kg/m2 38036.59 g 130 mm[Hg] 64 mm[Hg] Berny Duarte [facility] 8 15:35:39 Date Recorded Body height Body mass index (BMI) Body weight Systolic blood pressure Diastolic blood pressure Provider Name and Address Organization Details Last Updated DateTime 09/11/2018 154.94 cm 30.8 kg/m2 86143.56 g 144 mm[Hg] 78 mm[Hg] Angela Boo [facility] 9 15:15:25 Social History Question Answer Notes LastModified by Organizat ion Details LastModified Time Tobacco Smoking Status Never Smoker Eva Mccormack [facility] 09/01/2017 09:37:25 What Is Your Level Of Alcohol Consumption? 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 09/11/2018 Information n ot available 07/03/2019 How Much Tobacco Do You Smoke? No Information not available 09/01/2017 Sex: Unknown Functional Status None recorded. Mental Status None recorded. Family History Relationship Description Onset Age of this Age Resolved Age Notes LastModified by Organization Details LastModified Time Mother Hypertensive disorder [email or web address] Not available 2017 09:35:33 Father Heart disease [email or web address] Not available 2017 09:35:40 Medical History Condition Response Depression Y Gynecological HistoryNo gynecological history recorded. Obstetrics History GPAL:G 0 P 0 0 0 0 Immunizations Vaccine Type Date Status Note Provider Nam e and Address Organization Details Recorded Time Influenza, split virus, quadrivalent, preservative 6 completed Eva Easton [facility] 09/01/2017 09:35:17 Influenza, split virus, quadrivalent, preservative 9 completed Yvonnetutu Freitas [facility] 09/11/2018 14:40:40 pneumococcal, unspecified formulation 4 completed Yvonne Zena [facility] 09/11/2018 14:41:20 Past Encounters Encounter ID Performer Location Encounter Start Date Encounter Closed Date Diagnosis/Indication Diagnosis SNOMED-CT Code Diagnosis ICD10 Code Diagnosis Note [id number] ZO FRANK MD [facility] [address] [place] [address] 09/01/2017 09:08:16 09/01/2017 10:52:40 Postconcussion syndrome 29596469 F07.81 Memory impairment 394474 006 R41.3 Fall W19.XXXA Concussion injury of brain 041403283 S06.0X0A Poor short -term memory 159381069 R41.3 [id number] ZO FRANK MD [facility] [address] [address] 09/15/2017 13:17:32 09/15/2017 13:51:57 Fall W19.XXXA Postconcus sole syndrome 71809162 F07.81 Poor short -term memory 552276584 R41.3 [id number] ZO FRANK MD [facility] [address] [address] 11/09/2017 10:02:04 11/09/2017 11:32:37 Fall W19.XXXA Postconcus sole syndrome 94143655 F07.81 Poor short -term memory 310723095 R41.3 Concussion injury of brain 917178592 S06.0X0A [id number] ZO FRANK MD [facility] [address] [place] [address] 01/12/2018 14:51:16 01/12/2018 16:01:43 Amnesia 61378318 R41.3 [id number] ZO FRANK MD [facility] [address] [place] [address] 03/13/2018 15:02:17 03/13/2018 16:42:37 Memory impairment 176494203 R41.3 Transient memory loss 30 5852966 R41.3 History of concussion injury of brain 3107360819 4030091 Z87.820 Postconcus sole syndrome 90141520 F07.81 [id number] ZO FRANK MD [facility] [address] [place] [address] 09/11/2018 14:39:58 09/11/2018 16:02:47 Memory impairment 704693237 R41.3 Health Concerns Section Related Observation LastModified by Organization Detai ls LastModified Time None Recorded Concern Status LastModified by Organization Details LastModified Time None Recorded Advance Directives Directive None Recorded Payers Encounter Date Sequence Insurance Name Policy Number Policy Ernandez Covered Member ID Ernandez Member ID Guarantor Name 09/15/2017 [facility] [employer] [id number] Zenaida Raymundo Khadijah 11/09/2017 1 [employer] [id number] Zenaida P Khadijah [id number] Zenaida P Khadijah 01/12/2018 1 [employer] [id number] Zenaida P Khadijah [id number] Zenaida P Khadijah 03/13/2018 1 [employer] [id number] Zenaida P Khadijah [id number] Zenaida P Khadijah 09/11/2018 1 [employer] [id number] Zenaida Giraldoley [id number] Zenaida Lucio Notes Date Note Type Note Provider Name and Address Organization Details Recorded Time 09/15/2017 text/html This is follow u p of 76-year-old woman with concussion 08/26 CC: concussion She is significantly better Brighter conversant engaging with discussion She does not have headache she does not have much memory of event of days that followed the concussion Patient and family say she is making great recovery Today's Brain MRI is god study with no intracranial injury. no site of focal brain injury no area of bleeding or infarction no extra-axial blood ZO FRANK MD [address] [place] [address], [phone], [facility] 09/22/2017 20:03:56 11/09/2017 text/html 1. Follow up fro m fall 2. Postconcussion Patient is present with her daughter Lisa, and . Lisa lives in [facility]. Patient states improvement since fall. Is back to running her kitchen, cleaning, shopping, and making out bills. Can still drive her vehicle and has no issues with direction. Active in jainism and homemakers group since her fall. Can name some of her medications and calls pharmacy for refills. Has a little trouble recalling certain information. Lisa (daughter) states that patient is back to herself at least 90% of the time. ZO FRANK MD [address] [place] [address], [phone], [facility] 11/16/2017 07:06:42 01/12/2018 text/html says sti ll memory trouble but holding steady she is doing about the same across the summer patient says she cannot tell memory troubler is occurring she is asking donepezil 1 whole daily says she is partially improved tolerates well without diarrhea ZO FRANK MD [address] [place], [address], [facility] 01/20/2018 08:45:49 03/13/2018 text/html patient returns with , both say that she is better, yet still some memory trouble able to conduct household able to manage shopping, cooking and meal prep They both describe her improvement has continued all summer she is off donepezil and Namzaric due to diarrhea patient says she has recovered and has resumed all activities. ZO FRANK MD [address] [place], [address], [facility] 03/20/2018 21:54:04 09/11/2018 text/html This is a rechec k for this 77 year old woman with an established diagnosis of memory impairment. 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 Note: I encouraged they talk further and consider some helper come into house. Pt says her memory is good she says she is doing well Daughter says impairment does occur, some impaired decisions Patient could not tolerate donepezil due to nightmares unable to give day, date, or month able to tell the year able to add together a shu, kasi, and a dime able to show how a police man motions traffic forward, show an OK sign, demonstrate how to brush her hair states that she is able to put together a pill box for the week correctly ZO FRANK MD [address] [place], [address], [facility] 09/12/2018 07:12:52 OBGyn Episode No OBEpisode recorded.
--- OUTSIDE RECORDS SUMMARY | 2024-09-13 02:22 | XMS_ITS ---
Author Organization Unknown Plan of Treatment Description Planned Activity Planned Timing - Telephone encounter Mar 14, 2024 Patient Care team information Name Category Status Period Participants - - Proposed period not known -
--- NOTE | 2024-09-13 02:26 | CT_ITS ---
PROCEDURE INFORMATION: Exam: CTA Abdomen and Pelvis With Contrast Exam date and time: 09/13/2024 3:16 AM Age: 83 years old Clinical indication: Other: Coffee groung emesis; Additional info: Coffee ground emesis TECHNIQUE: Imaging protocol: Computed tomographic angiography of the abdomen and pelvis with contrast. Exam focused on the arteries. 3D rendering (Not supervised by radiologist): MIP and/or 3D reconstructed images were created by the technologist. Radiation optimization: All CT scans at this facility use at least one of these dose optimization techniques: automated exposure control; mA and/or kV adjustment per patient size (includes targeted exams where dose is matched to clinical indication); or iterative reconstruction. Contrast material: ISOVUE; Contrast volume: 80 ml; Contrast route: INTRAVENOUS (IV); COMPARISON: CT ANGIO ABDOMEN PELVIS 12/20/2023 8:51 AM FINDINGS: Diaphragm: Moderate hiatal hernia. Aorta: No aortic aneurysm. No aortic dissection. Celiac trunk and mesenteric arteries: No occlusion or significant stenosis. Renal arteries: No occlusion or significant stenosis. Right iliac arteries: No occlusion or significant stenosis. Left iliac arteries: No occlusion or significant stenosis. No active extravasation of contrast. Liver: No mass. Gallbladder and biliary ducts: Cholecystectomy. Pancreas: Unremarkable. No mass. No ductal dilation. Spleen: Unremarkable. No splenomegaly. Adrenal glands: Unremarkable. No mass. Kidneys and ureters: Unremarkable. No solid mass. No hydronephrosis. Stomach and bowel: Extensive diverticulosis colon. Appendix: No evidence of appendicitis. Intraperitoneal space: Unremarkable. No free air. No significant fluid collection. Lymph nodes: Unremarkable. No enlarged lymph nodes. Urinary bladder: Unremarkable. No mass. Reproductive: Unremarkable as visualized. Bones/joints: Postsurgical change left hip. Soft tissues: Unremarkable. IMPRESSION: Unremarkable CTA. Diverticulosis without diverticulitis. Hiatal hernia.
--- NOTE | 2024-09-13 02:28 | XR_ITS ---
PROCEDURE INFORMATION: Exam: XR Chest Exam date and time: 09/13/2024 3:08 AM Age: 83 years old Clinical indication: Other: Vomiting; Additional info: Coffee ground emesis TECHNIQUE: Imaging protocol: Radiologic exam of the chest. Views: 1 view. COMPARISON: CR XR CHEST 2V 04/29/2024 12:42 PM FINDINGS: Lungs: Mild chronic interstitial change. Pleural spaces: Unremarkable. No pleural effusion. No pneumothorax. Heart/Mediastinum: Unremarkable. No cardiomegaly. Bones/joints: Mild thoracolumbar scoliosis. IMPRESSION: Mild chronic interstitial change.
--- NOTE | 2024-09-13 02:28 | ECG_ITS ---
APPROVED REPORT Exam: Resting ECG HR:71 bpm ECG Measurements Heart Rate 71 AXES KS 157 P 59 QRSd 82 QRS -12 QT 382 T 17 QTc 404 Conclusion SINUS RHYTHM POSSIBLE ANTERIOR MYOCARDIAL INFARCTION , PROBABLY OLD [30 ms Q WAVE IN V3/V4, OR R < 0.2 mV IN V4] INFERIOR MYOCARDIAL INFARCTION , PROBABLY OLD [40+ ms Q WAVE AND/OR ST/T ABNORMALITY IN II/aVF] No STEMI Electronically signed by : GARCIA MARSHALL, 09/13/2024 07:00:36
--- NOTE | 2024-09-13 02:34 | ED_ITS ---
Discharge Plan Disposition Patient Disposition: Xfer SNF Condition: Good Prescriptions Prescriptions: No Action losartan 50 mg tablet 75 mg PO DAILY Qty: 45 4RF memantine 10 mg tablet See Rx Instructions .ROUTE .COMPLEX Qty: 180 1RF Dose Instruction: TAKE ONE TABLET BY MOUTH TWICE DAILY Rx Instructions: TAKE ONE TABLET BY MOUTH TWICE DAILY famotidine 20 mg tablet See Rx Instructions .ROUTE .COMPLEX Qty: 90 1RF Dose Instruction: TAKE ONE TABLET BY MOUTH EVERY DAY Rx Instructions: TAKE ONE TABLET BY MOUTH EVERY DAY aspirin 81 mg tablet,delayed release (DR/EC) See Rx Instructions .ROUTE .COMPLEX Qty: 90 1RF Dose Instruction: TAKE ONE TABLET BY MOUTH EVERY MORNING Rx Instructions: TAKE ONE TABLET BY MOUTH EVERY MORNING amoxicillin 400 mg/5 mL suspension for reconstitution 1,000 mg PO BID Qty: 375 0RF bisoprolol fumarate 5 mg tablet 2.5 mg PO DAILY rosuvastatin 40 mg tablet 40 mg PO HS Referrals Follow up/Referrals: Caden Mccormack MD [Primary Care Provider] - See instructions Enzo Bonds II, MD [Staff Physician] - See instructions (hiatal hernia, dementia, recurrent emesis, reported 1x episode coffee ground emesis but workup reassuring) Activity Restrictions/Add. Instructions Additional Instructions/Restrictions: Maria Ines was evaluated in the ER and is appropriate for discharge at this time. Continue all home medications as previously prescribed. Monitor for any other coffee-ground or bloody emesis. She should follow-up with GI as soon as possible, a referral to Dr. Bonds has been placed for this purpose. She should return to the ER with any new, worsening, or otherwise concerning symptoms. 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 [place] [facility] has emesis approximately once daily. Tonight her emesis was coffee-ground in nature according to the nursing facility so they sent the patient by EMS to the hospital for further evaluation. Patient is on Eliquis. Patient reports no abdominal pain. Nursing facility reports patient is only really oriented to herself at baseline and that is how she is at this time. They reported to EMS that the patient is currently at her neurologic baseline. Patient has no other complaints though she is a poor historian and provides limited history. EMS states they did not administer any medications and route. Family including patient's and daughter present at the bedside and reports that patient was started on Eliquis for stroke, PE, extensive DVT. They report she has left-sided deficits and is unable to ambulate since the stroke. They also report her mental status has declined significantly since the stroke but she is currently at her baseline. They report tonight she had ground-up shrimp and chocolate pudding for dinner. Patient is reportedly on a soft diet which has helped her daily emesis. Related Data Home Medications ?Medication ?Instructions ?Recorded ?Confirmed bisoprolol fumarate 5 mg tablet 2.5 mg PO DAILY 12/20/23 07/16/24 rosuvastatin 40 mg tablet 40 mg PO HS 12/20/23 07/16/24 Previous Rx's ?Medication ?Instructions ?Recorded memantine 10 mg tablet See Rx Instructions .Route 03/02/24 .COMPLEX #180 tabs famotidine 20 mg tablet See Rx Instructions .Route 04/24/24 .COMPLEX #90 tabs aspirin 81 mg tablet,delayed See Rx Instructions .Route 05/25/24 release .COMPLEX #90 tabs losartan 50 mg tablet 75 mg (1.5 x 50 mg) PO DAILY #45 06/07/24 tabs amoxicillin 400 mg/5 mL oral 1,000 mg (12.5 mL) PO BID #375 mL 07/18/24 suspension Allergies Allergy/AdvReac Type Severity Reaction Status Date / Time No Known Allergies Allergy Verified 07/16/24 14:38 [facility] Disclaimer: The information contained in this section may have been updated after the patient was seen, as this information can be updated by other users. Medical History Dementia TBI (traumatic brain injury) Abnormal electrocardiography Social History Smoking Status: Never smoker alcohol intake: never current occupational status: retired Travel in the last 8 weeks?: Inside the [place] household members: spouse housing: house caffeine: Yes Other Medical History Have you received the Flu Vaccine for this season: No Have you received the Pneumonia Vaccine: Yes ROS Obtained: Yes Systems reviewed as appropriate & no additional complaints except as documented per HPI, ROS limited secondary to patient's dementia Physical Exam General General appearance: alert and in no apparent distress Head Head exam: atraumatic and normocephalic Eye Eye exam: Present PERRL and EOMI ENT ENT exam: Present mucous membranes moist Neck Neck exam: Present normal inspection and full ROM Chest Chest inspection: Present symmetric chest wall rise; Absent tenderness Respiratory Respiratory exam: Present normal lung sounds bilaterally; Absent respiratory distress, wheezes or stridor Cardiovascular Cardiovascular exam: Present regular rate and normal rhythm Abdominal Exam Abdominal exam: Present soft; Absent distention, tenderness, guarding or rebound Extremities Exam Extremities exam: Present full ROM and edema (BLE pitting edema worse on L than R) Neurological Exam Neurological exam: Present alert and motor sensory deficit (Decreased motor strength on left upper and lower extremity, baseline since CVA in July); Absent oriented X3 (Oriented only to self) Psychiatric Psychiatric exam: Present normal affect and normal mood Skin Skin exam: Present warm and dry Medical Decision Making Medical Records Medical records reviewed: Yes I reviewed the patient's medical records. Screening: Per USPSTF and CDC recommendations, given the prevalence of disease in our region, it is our hospital?s policy to screen for HIV and viral Hepatitis for all patients aged 18 and over and those with ongoing risk factors. MR Comment: Review of records demonstrates after patient's CVA in July she was transferred to [facility] for continued management. Be Inquiry Pt receiving controlled substance: No Vital Signs: 09/13/24 02:58 09/13/24 03:00 09/13/24 03:31 Temperature 98.1 F Temperature Source Oral Pulse Rate 67 71 Pulse Rate [Radial] 68 Respiratory Rate 20 12 12 Blood Pressure 148/75 H 156/72 H Blood Pressure [Right Arm] 148/75 H Blood Pressure Mean [Right Arm] 99 Blood Pressure Position Blood Pressure Position [Right Arm] Supine 02 Sat by Pulse Oximetry 96 96 93 L Oxygen Delivery Method Room Air Oxygen Flow Rate (LPM) 09/13/24 04:00 09/13/24 04:23 09/13/24 04:30 Temperature 98.1 F Temperature Source Pulse Rate 72 72 77 Pulse Rate [Radial] Respiratory Rate 17 18 15 Blood Pressure 140/59 L 140/59 L 115/59 L Blood Pressure [Right Arm] Blood Pressure Mean [Right Arm] Blood Pressure Position Supine Blood Pressure Position [Right Arm] 02 Sat by Pulse Oximetry 98 94 L Oxygen Delivery Method Nasal Cannula Room Air Nasal Cannula Oxygen Flow Rate (LPM) 2 2 Lab Data Lab Results 09/13/24 02:04: WBC 6.2, RBC 4.68, Hgb 13.9, Hct 42.6, MCV 91.0, MCH 29.7, MCHC 32.6, RDW 15.6, Plt Count 272, MPV 9.5, Neut % (Auto) 53.9, Lymph % (Auto) 34.8, G[place] % (Auto) 9.4 H, Eos % (Auto) 1.1, Baso % (Auto) 0.5, Neut # (Auto) 3.3, Lymph # (Auto) 2.2, Gaston # (Auto) 0.6, Eos # (Auto) 0.1, Baso # (Auto) 0.0, PT 10.8, INR 0.96, Sodium 137, Potassium 4.8, Chloride 107, Carbon Dioxide 27, Anion Gap 7.8, BUN 11, Creatinine 0.50 L, Estimated GFR 118, Est GFR ( Amer) 142, Glucose 104 H, Calcium 10.7 H, Total Bilirubin 0.7, AST 41 H, ALT 18, Alkaline Phosphatase 62, Troponin I 0.02, Total Protein 6.6, Albumin 3.6, Globulin 3.0, Albumin/Globulin Ratio 1.2, Lipase 128 09/13/24 02:30: Urine Color Yellow, Urine Appearance Clear, Urine pH 6.0, Ur Specific Loop 1.010, Urine Protein Negative, Urine Glucose (UA) Negative, Urine Ketones Negative, Urine Blood Negative, Urine Nitrate Negative, Urine Bilirubin Negative, Urine Urobilinogen 0.2, Ur Leukocyte Esterase Negative, Ur Squamous Epith Cells Occasional 09/13/24 02:31: Lactate 1.4 09/13/24 02:33: Stool Occult Blood Negative 09/13/24 02:04 09/13/24 02:04 Orders (Tests/Meds): ED MEDICATIONS Discontinued Medications Generic Name Dose Route Start Last Admin Trade Name Angela PRN Reason Stop Dose Admin Lactated Ringer's 500 mls @ 999 mls/hr 09/13/24 02:27 09/13/24 02:48 Lactated Ringer's 500ml IV 09/13/24 02:57 999 mls/hr .Q31M ONE Administration Iopamidol 80 ml 09/13/24 03:23 09/13/24 03:24 Iopamidol-370 (76%);100ml Bottle IV 09/13/24 03:24 80 ml ONCE ONE Administration Ondansetron HCl 4 mg 09/13/24 02:28 09/13/24 02:48 Ondansetron 4mg/2ml Vial IV 09/13/24 02:29 4 mg ONCE ONE Administration Sodium Chloride 50 ml 09/13/24 03:23 09/13/24 03:24 0.9 % Sodium Chloride 50 Ml Vial IV 09/13/24 03:24 50 ml ONCE ONE Administration Sodium Chloride 10 ml 09/13/24 03:23 09/13/24 03:24 Sodium Chloride 0.9% 10ml Syr (Rad Only) IV 09/13/24 03:24 10 ml ONCE ONE Administration ORDERS Category Date Time Status CT angio abd/pel - GI Bleed Stat Cat Scan 09/13/24 02:26 Completed CXR --portable [XR chest portable] Stat Exams 09/13/24 02:28 Completed CBC w/Auto Diff [Complete Blood Count Auto Diff] Stat Lab 09/13/24 02:04 Completed CMP [Comprehensive Metabolic Panel] Stat Lab 09/13/24 02:04 Completed Lactic Acid Stat Lab 09/13/24 02:31 Completed Lipase Stat Lab 09/13/24 02:04 Completed Occult Blood,Stool Stat Lab 09/13/24 02:33 Completed PT INR [Prothrombin Time INR] Stat Lab 09/13/24 02:04 Completed Trop I [Troponin I] Stat Lab 09/13/24 02:04 Completed Troponin I Q3H Lab 09/13/24 05:30 Ordered Troponin I Q3H Lab 09/13/24 08:30 Ordered Urinalysis and Microscopic Stat Lab 09/13/24 02:30 Completed Medical Decision Narrative: In summary, this 83-year-old female with comorbidities described in the HPI which increased the amount of data to be reviewed as well as her overall morbidity presents to the emergency department today with concerns of dark brown, possibly coffee-ground emesis. On initial evaluation patient is hypertensive but otherwise hemodynamically stable, afebrile, GCS 14 which is baseline for the patient at this time, left-sided motor deficits consistent with patient's previous stroke, abdominal exam reassuring soft, nontender, nondistended, cardiopulmonary exam benign, lower extremity edema present. Differential diagnosis includes but is not limited to upper GI bleed, anemia, cyclic vomiting, dark emesis could be related to patient's dinner tonight, bowel obstruction though I have lower suspicion for this since patient had bowel movement 1 day ago, I considered mesenteric ischemia but have much lower suspicion since patient is not complaining of any pain and is on anticoagulation, patient wears a brief and is largely bedbound so I considered possibility of UTI, also considered atypical presentation of ACS though I have lower suspicion for this since patient has no chest pain. Ruling out the most morbid conditions drove my assessment. Based on these concerns, I ordered serum labs, CT imaging, urine studies, cardiac workup. ECG personally interpreted demonstrates sinus rhythm, rate 71, normal axis, normal KS and QTc, no STEMI. Patient received small bolus of IV fluids, Zofran initially for treatment. Labs personally reviewed demonstrate UA negative for findings of infection, stool occult negative. No leukocytosis, WBC 6.2, hemoglobin down to 13.9 from 14.6 in July, no significant blood loss, platelets normal. PT/INR normal. CMP nonactionable, lipase normal at 128. Troponin 0.02. Very reassuring since the patient is not having chest pain, continued nausea or emesis, and has reassuring ECG. Chest x-ray personally interpreted below demonstrate acute thoracic abnormality, see radiology read for final interpretation. CT abdomen pelvis personally interpreted does not demonstrate active GI bleed, patient does have hiatal hernia, see radiology read for final interpretation. On reassessment patient continues to be hemodynamically stable, resting comfortably. I have extremely low suspicion that patient had actual coffee- ground emesis tonight especially since her dinner consisted of ground-up shrimp and chocolate pudding. I have higher suspicion that her typical recurrent emesis contained chocolate pudding and other ground up food material which therefore appeared coffee-ground in nature. Family at bedside also believes this is what happened. They are very reassured by the workup that has been performed. Patient has previously followed with GI in [place] however they are not sure if she will be able to have easy follow-up with them so I referred the patient to Dr. Bonds here for GI follow-up. Family is closely involved in the patient's care so I gave them instructions on continued symptomatic monitoring, follow-up, and return precautions for the ER. These instructions were conveyed to the nursing facility as well. Patient discharged in stable condition. Critical Care Critical Care Time Critical Care Time: No
[2024-09-13 02:44] LABS: Microscopic, Urine URINE MICROSCOPIC (MICROSCOPIC)
[2024-09-13 02:46] LABS: Appearance,Urine CLEAR (Clear); Bilirubin,Urine Negative (Negative); Blood, Urine Negative (Negative); Color,Urine YELLOW (Yellow); Glucose,Urine (UA) Negative (Negative); Ketones,Urine Negative (Negative); Leukocyte Esterase,Urine Negative (Negative); Nitrate,Urine Negative (Negative); Protein,Urine Negative (Negative); Urobilinogen,Urine 0.2 EU/dl (0.2)
[2024-09-13 02:47] LABS: Occult Blood,Stool Negative (Negative)
[2024-09-13] MEDS: RINGERS SOLUTION,LACTATED 500 ML 999 ML IV (02:48)
[2024-09-13] MEDS: ONDANSETRON 4MG/2ML VIAL 4 MG IV (02:48)
[2024-09-13 02:49] LABS: Albumin Level 3.6 g/dl (3.5-5.0); Chloride 107 mmol/L (98-107); Sodium 137 mmol/L (136-145)
[2024-09-13 02:50] LABS: Basophils % 0.5 % (0.1-2.0); Eosinophils # 0.1 Kmm3 (0.0-0.4); Eosinophils % 1.1 % (0.1-12.0); Hematocrit 42.6 % (37.0-47.0); Hemoglobin 13.9 g/dL (12.2-16.2); Lymphocytes # 2.2 K/mm3 (0.7-4.5); Lymphocytes % 34.8 % (10-50); Mean Corpuscular HGB Conc 32.6 g/dL (31.8-35.4); Mean Corpuscular Hemoglobin 29.7 pg (27.0-31.2); Mean Platelet Volume 9.5 fl (7.4-10.4); Monocytes # 0.6 K/mm3 (0.1-1.0); Monocytes % 9.4 % (1.7-9.3); Neutrophils # 3.3 K/mm3 (1.8-7.8); Neutrophils % 53.9 % (37.0-80.0); Nucleated Red Blood Cells # 0 10^3/uL; Nucleated Red Blood Cells % 0 %; Platelet Count 272 K/mm3 (142-424); Potassium 4.8 mmoL/L (3.5-5.1); Red Blood Count 4.68 M/mm3 (4.20-5.40); Red Cell Distribution Width 15.6 % (11.5-17.5); Red Cell Distribution Width-SD 51.8 fL; White Blood Count 6.2 K/mm3 (4.8-10.8)
[2024-09-13 02:52] LABS: Alanine Aminotransferase 18 U/L (12-78); Albumin/Globulin Ratio 1.2 (1.1-1.8); Alkaline Phosphatase 62 U/L (38-126); Anion Gap 7.8 mEq/L (5-15); Aspartate Amino Transferase 41 U/L (14-36); Bilirubin,Total 0.7 mg/dl (0.2-1.3); Blood Urea Nitrogen 11 mg/dl (7-17); Carbon Dioxide 27 mmol/L (22.0-30.0); Estimated Glomerular Filt Rate 118 ml/min (>60); GFR (African American) 142 ML/MIN (>60); Lipase 128 U/L (23-300); Total Protein,Serum 6.6 g/dl (6.3-8.2)
[2024-09-13 02:53] LABS: Squamous Epithelial Cell,Urine Occasional #/hpf (0-5)
[2024-09-13 02:53] LABS: Calcium 10.7 mg/dl (8.4-10.2); Glucose 104 mg/dl (74-100)
[2024-09-13 02:55] LABS: Lactic Acid 1.4 mmol/L (0.7-2.1)
[2024-09-13 02:56] LABS: INR 0.96 (0.9-1.1); Prothrombin Time 10.8 seconds (10.1-12.5)
[2024-09-13 03:04] LABS: Troponin I 0.02 ng/ml (0.00-0.034)
--- NOTE | 2024-09-13 03:22 | PC.NURSE ---
pt returned from CT at this time without incident.
[2024-09-13] MEDS: SODIUM CHLORIDE 0.9% 10ML SYR (RAD ONLY) 10 ML IV (03:24)
[2024-09-13] MEDS: IOPAMIDOL-370 (76%);100ML BOTTLE 80 ML IV (03:24)
[2024-09-13] MEDS: 0.9 % SODIUM CHLORIDE 50 ML VIAL IV (03:24)
--- NOTE | 2024-09-13 04:05 | PC.NURSE ---
pt de-sat to 79% while asleep in room. MD Pabon notified and pt placed on 2L NC.
--- NOTE | 2024-09-13 04:10 | PC.NURSE ---
attempt to call report back to [facility] [place] with no answer, will attempt again momentarily.
--- NOTE | 2024-09-13 04:13 | PC.NURSE ---
report given to [facility] [place] [facility] at this time.
== END 2024-09-13 05:27 ==
PROVIDERS: Emergency Provider Emergency Medicine; PCP Internal Medicine
DX: R11.10 Vomiting, unspecified (principal); G30.9 Alzheimer's disease, unspecified; F02.80 Dementia in other diseases classified elsewhere, unspecified severity, without behavioral disturbance, psychotic disturbance, mood disturbance, and anxiety; Z79.01 Long term (current) use of anticoagulants
CPT/HCPCS: 71045; 74174; 80053; 81001; 82272; 83605; 83690; 84484; 85025; 85610; 93005; 96374; 99285; G0328; J2405; J7120; Q9967

== ENCOUNTER 2024-09-27 12:00 | Outpatient (CLI) | payer MEDICARE, OTHER, SELFPAY ==
[2024-09-27 17:21] LABS: Basophils # 0.1 K/mm3 (0-0.2); Basophils % 0.9 % (0.1-2.0); Eosinophils # 0.1 Kmm3 (0.0-0.4); Eosinophils % 0.9 % (0.1-12.0); Hematocrit 44.6 % (37.0-47.0); Immature Granulocytes # 0.02 10^3uL; Immature Granulocytes % 0.3 %; Lymphocytes # 1.9 K/mm3 (0.7-4.5); Lymphocytes % 25.5 % (10-50); Mean Corpuscular HGB Conc 31.4 g/dL (31.8-35.4); Mean Corpuscular Volume 92.3 fl (81-99); Mean Platelet Volume 9.7 fl (7.4-10.4); Monocytes # 0.8 K/mm3 (0.1-1.0); Monocytes % 10.9 % (1.7-9.3); Neutrophils # 4.6 K/mm3 (1.8-7.8); Neutrophils % 61.5 % (37.0-80.0); Nucleated Red Blood Cells # 0 10^3/uL; Nucleated Red Blood Cells % 0 %; Platelet Count 332 K/mm3 (142-424); Red Blood Count 4.83 M/mm3 (4.20-5.40); Red Cell Distribution Width 15.7 % (11.5-17.5); Red Cell Distribution Width-SD 53.4 fL; White Blood Count 7.4 K/mm3 (4.8-10.8)
[2024-09-27 17:49] LABS: Alanine Aminotransferase 12 U/L (12-78); Albumin Level 3.6 g/dl (3.5-5.0); Albumin/Globulin Ratio 1.5 (1.1-1.8); Alkaline Phosphatase 87 U/L (38-126); Anion Gap 10.6 mEq/L (5-15); Aspartate Amino Transferase 22 U/L (14-36); Bilirubin,Total 0.6 mg/dl (0.2-1.3); Blood Urea Nitrogen 16 mg/dl (7-17); Calcium 10.1 mg/dl (8.4-10.2); Carbon Dioxide 25 mmol/L (22.0-30.0); Chloride 105 mmol/L (98-107); Chol/HDL Ratio 4.5 (1-3.5); Cholesterol 172 mg/dl (140-200); Estimated Glomerular Filt Rate 80 ml/min (>60); GFR (African American) 96 ML/MIN (>60); Globulin 2.4 g/dL (1.3-3.2); Glucose 65 mg/dl (74-100); HDL Cholesterol 38 mg/dl (40-60); Magnesium 2.2 mg/dl (1.6-2.3); Potassium 4.6 mmoL/L (3.5-5.1); Sodium 136 mmol/L (136-145); Triglycerides 159 mg/dl (30-150); VLDL Cholesterol 32 mg/dL (0-40)
[2024-09-27 18:00] LABS: Direct LDL Cholesterol 106.76 mg/dL (100-129)
[2024-09-27 18:18] LABS: Thyroid Stimulating Hormone 1.85 uIU/mL (0.465-4.68)
== END 2024-09-27 23:59 | disposition home or self-care (01) ==
LOC: LAB.DROPOF 09-28 10:49
PROVIDERS: PCP Internal Medicine; Visit Provider Internal Medicine
DX: Z51.81 Encounter for therapeutic drug level monitoring (principal); I25.10 Atherosclerotic heart disease of native coronary artery without angina pectoris; I10 Essential (primary) hypertension; E78.5 Hyperlipidemia, unspecified; R60.9 Edema, unspecified; Z79.899 Other long term (current) drug therapy
CPT/HCPCS: 80053; 80061; 83735; 84443; 85025